=== PATIENT | female | born 1935 | race Caucasian/White ===

== ENCOUNTER 2017-04-01 15:26 | Inpatient (IN) ==
[2017-04-01 16:20] LABS: Basophils % 0.3 %; Eosinophils # 0.1 K/mcL (0.0-0.6); Eosinophils % 0.5 %; Hematocrit 41.2 % (35.3-44.9); Hemoglobin 13.3 g/dL (11.5-15.4); Immature Granulocytes % 0.6 % (0-4); Lymphocytes # 2.7 K/mcL (0.6-4.6); Lymphocytes % 21.1 %; Mean Corpuscular HGB Conc 32.3 g/dL (31.6-35.5); Mean Corpuscular Hemoglobin 26.5 pg (28.0-33.3); Mean Corpuscular Volume 82.2 fL (83.0-100.0); Monocytes # 1.1 K/mcL (0.0-1.3); Monocytes % 8.5 %; Neutrophils # 8.7 K/mcL (1.6-8.9); Platelet Count 267 K/mcL (140-400); Red Blood Count 5.01 M/mcL (3.82-4.97); Red Cell Distribution Width 13.3 % (11.5-14.5)
[2017-04-01 16:30] LABS: BUN/Creatinine Ratio 16 (6-26); Blood Urea Nitrogen 12 mg/dL (7-20); Calcium 9.6 mg/dL (8.6-10.8); Carbon Dioxide 30 mEq/L (19-29); Chloride 103 mEq/L (98-109); Glucose 107 mg/dL (70-99); Osmolality,Calculated 292 (280-300); Potassium 3.6 mEq/L (3.5-4.5); Sodium 141 mEq/L (136-145); eGFR For African Americans > 60 (> 60); eGFR For Non-African Americans > 60 (> 60)
--- NOTE | 2017-04-01 16:44 | Emergency Department Note ---
Disposition Clinical Impression: Transient cerebral ischemia Qualifiers: Transient cerebral ischemia type: unspecified Qualified Code(s): G45.9 - Transient cerebral ischemic attack, unspecified Disposition: Admitted As Inpatient Condition: Good General Adult HPI - General Chief complaint: ED Neuro Symptoms/Deficit Stated complaint: neuro, dizzy, HTN Time Seen by Provider: 04/01/17 15:51 Source: patient Mode of arrival: ambulatory Limitations: no limitations Nursing Notes Reviewed: Yes Vital Signs Reviewed: Yes - History of Present Illness HPI Narrative: 82-year-old female brought in by family with concerns of possible CVA versus increasing weakness. Family states the patient is generally very active and works 40 hours a week without difficulty. Over the past 3 days they have noticed that she has been increasingly weak and fatigued with slurred speech and intermittent word finding difficulties. They state that she fell 2 days ago secondary to a lower extremity weakness but the details on this are unclear. They state there are evaluated by an outside facility 2 days ago which returned with a normal workup other than a mildly elevated carboxyhemoglobin level. The family states that multiple officials have been to the house and have not found an elevated level of carbon monoxide in the emergency department. Today the family noted that she had increased difficulty with word finding and described paresthesias of the left side of her face and the left upper extremity. Patient was also found to have a significantly elevated blood pressure with systolic greater than 200. Patient states she has been under a large amount of stress recently secondary to family problems. She does report a history of elevated blood pressures in the past. Primary care provider recently prescribed Toprol to add to her lisinopril however she has not started this medication yet. Pain Scale: 0 - Related Data Home Medications Medication Instructions Recorded Confirmed Cinacalcet [Sensipar] 30 mg PO BID 02/17/16 04/01/17 Cholecalciferol (D-3) [Vitamin D] 4,000 unit PO DAILY 03/30/17 04/01/17 Cyclobenzaprine [Flexeril] 5 mg PO HS 03/30/17 04/01/17 FLUoxetine HCl [PROzac] 10 mg PO DAILY 03/30/17 04/01/17 LORazepam [Ativan] 0.5 - 1 mg PO TID PRN 03/30/17 04/01/17 Lisinopril 30 mg PO DAILY 03/30/17 04/01/17 Atorvastatin [Lipitor] 10 mg PO AD 04/01/17 04/01/17 Diclofenac Sodium [Voltaren] 1 appl TP QID PRN 04/01/17 04/01/17 Fluticasone Propionate Nasal 50 mcg NS BID 04/01/17 04/01/17 [Flonase] Glimepiride [Amaryl] 0.5 mg PO QAM 04/01/17 04/01/17 Meclizine HCl [Verticalm] 25 mg PO BID PRN 04/01/17 04/01/17 Metoprolol [Lopressor] 25 mg PO BID 04/01/17 04/01/17 Ondansetron [Zofran] 8 mg PO Q8H PRN 04/01/17 04/01/17 Potassium Chloride [Klor-Con 10] 10 meq PO TID 04/01/17 04/01/17 hydroCHLOROthiazide 12.5 mg PO DAILY PRN 04/01/17 04/01/17 [Hydrochlorothiazide] Allergies Allergy/AdvReac Type Severity Reaction Status Date / Time aspirin Allergy Hives Verified 03/30/17 09:07 cephalexin [From Keflex] Allergy Hives Verified 03/30/17 09:07 ibuprofen [From Motrin] Allergy Hives Verified 03/30/17 09:07 propoxyphene Allergy Swelling Verified 03/30/17 09:07 [From Darvocet-N] of Lip/Tongue/Throat All systems ED: reviewed and negative except as stated. Constitutional: Reports: weakness. Denies: fever, chills ENT ED: Denies: ear pain, throat pain Cardiovascular: Denies: chest pain, palpitations, dyspnea on exertion Respiratory: Denies: cough, dyspnea, wheezes Gastrointestinal: Denies: abdominal pain, nausea, vomiting Genitourinary: Denies: urgency, dysuria, frequency Musculoskeletal: Denies: back pain, neck pain Integumentary: Denies: rash, abrasion Past Medical History - Past Medical History Medical history: Reports: diabetes, hypertension Surgical history: Reports: non-contributory Psychiatric history: Reports: anxiety, bipolar ORTHODONTIC TECHNICIAN ASSISTANT history: Reports: no ORTHODONTIC TECHNICIAN ASSISTANT history - Social History Smoking Status: Never smoker Smokeless Tobacco Status: No Alcohol use: Reports: none Drug use: Reports: none Physical Exam General: Alert and in no acute distress Skin: Warm, dry, intact Head: Normocephalic and atraumatic Neck: Supple, trachea midline and no tenderness Cardiovascular: RRR, no murmur, normal perfusion Respiratory: CTAB, no wheezing, cough, or respiratory distress Musculoskeletal: Normal strength, no tenderness, swelling or deformity GI: Soft, nontender, nondistended. Bowel sounds present Neuro: A&O to person, place, time and situation. No focal deficits noted on exam. Finger to nose testing and [id number] testing intact bilaterally. Cranial nerve exam intact to examination. No sensory deficits on exam. Psychiatric: cooperative and appropriate mood and affect. - General Limitations: no limitations General appearance: in no apparent distress Course Vital Signs Temperature 97.9 F 04/01/17 15:30 Pulse Rate 107 04/01/17 15:30 Respiratory Rate 18 04/01/17 15:30 Blood Pressure 160/84 04/01/17 15:30 O2 Sat by Pulse Oximetry 97 04/01/17 15:30 Temperature 97.7 F 04/01/17 23:26 Pulse Rate 99 04/01/17 23:26 Respiratory Rate 20 04/01/17 23:26 Blood Pressure 165/101 04/01/17 23:26 O2 Sat by Pulse Oximetry 93 04/01/17 23:26 Oxygen Delivery Oxygen Delivery Nasal Cannula Medical Decision Making - Medical Records Medical records reviewed: Yes I reviewed the patient's medical records. - Lab Data Lab results reviewed: Yes I reviewed the patient's lab results. Result diagrams: 04/02/17 00:46 04/01/17 16:10 Lab Results 04/01/17 04/01/17 04/01/17 Range/Units 16:10 16:10 16:10 WBC 12.6 H (4.3-11.1) K/mcL RBC 5.01 H (3.82-4.97) M/mcL Hgb 13.3 (11.5-15.4) g/dL Hct 41.2 (35.3-44.9) % MCV 82.2 L (83.0-100.0) fL MCH 26.5 L (28.0-33.3) pg MCHC 32.3 (31.6-35.5) g/dL RDW 13.3 (11.5-14.5) % Plt Count 267 (140-400) K/mcL MPV 10.0 (9.4-12.4) fL Immature Gran % 0.6 (0-4) % Seg Neutrophils % 69.0 % Lymphocytes % 21.1 % Monocytes % 8.5 % Eosinophils % 0.5 % Basophils % 0.3 % Neutrophils # 8.7 (1.6-8.9) K/mcL Lymphocytes # 2.7 (0.6-4.6) K/mcL Monocytes # 1.1 (0.0-1.3) K/mcL Eosinophils # 0.1 (0.0-0.6) K/mcL Basophils # 0.0 (0.0-0.2) K/mcL Carboxyhemoglobin (0-5) % Sodium 141 (136-145) mEq/L Potassium 3.6 (3.5-4.5) mEq/L Chloride 103 (98-109) mEq/L Carbon Dioxide 30 H (19-29) mEq/L BUN 12 (7-20) mg/dL Creatinine 0.77 (0.57-1.11) mg/dL Est GFR ( Amer) > 60 (> 60) Est GFR (Non-Af Amer) > 60 (> 60) BUN/Creatinine Ratio 16 (6-26) Glucose 107 H (70-99) mg/dL Calculated Osmolality 292 (280-300) Calcium 9.6 (8.6-10.8) mg/dL Troponin I 0.00 (0-0.03) ng/mL Urine Color (Yellow) Urine Clarity (Clear) Urine pH (5.0-8.0) pH Units Ur Specific [place] (1.010-1.025) Urine Protein (Neg-Trace) mg/dL Urine Glucose (UA) (Normal) mg/dL Urine Ketones (Negative) mg/dL Urine Blood (Negative) Urine Nitrite (Negative) Urine Bilirubin (Negative) Urine Urobilinogen (Normal) mg/dL Ur Leukocyte Esterase (Negative) Ur Culture Indicated? (NO) 04/01/17 04/01/17 Range/Units 16:10 16:45 WBC (4.3-11.1) K/mcL RBC (3.82-4.97) M/mcL Hgb (11.5-15.4) g/dL Hct (35.3-44.9) % MCV (83.0-100.0) fL MCH (28.0-33.3) pg MCHC (31.6-35.5) g/dL RDW (11.5-14.5) % Plt Count (140-400) K/mcL MPV (9.4-12.4) fL Immature Gran % (0-4) % Seg Neutrophils % % Lymphocytes % % Monocytes % % Eosinophils % % Basophils % % Neutrophils # (1.6-8.9) K/mcL Lymphocytes # (0.6-4.6) K/mcL Monocytes # (0.0-1.3) K/mcL Eosinophils # (0.0-0.6) K/mcL Basophils # (0.0-0.2) K/mcL Carboxyhemoglobin 1.7 (0-5) % Sodium (136-145) mEq/L Potassium (3.5-4.5) mEq/L Chloride (98-109) mEq/L Carbon Dioxide (19-29) mEq/L BUN (7-20) mg/dL Creatinine (0.57-1.11) mg/dL Est GFR ( Amer) (> 60) Est GFR (Non-Af Amer) (> 60) BUN/Creatinine Ratio (6-26) Glucose (70-99) mg/dL Calculated Osmolality (280-300) Calcium (8.6-10.8) mg/dL Troponin I (0-0.03) ng/mL Urine Color Yellow (Yellow) Urine Clarity Clear (Clear) Urine pH 7.0 (5.0-8.0) pH Units Ur Specific [place] 1.011 (1.010-1.025) Urine Protein Negative (Neg-Trace) mg/dL Urine Glucose (UA) Normal (Normal) mg/dL Urine Ketones Negative (Negative) mg/dL Urine Blood Negative (Negative) Urine Nitrite Negative (Negative) Urine Bilirubin Negative (Negative) Urine Urobilinogen Normal (Normal) mg/dL Ur Leukocyte Esterase Negative (Negative) Ur Culture Indicated? NO (NO) - Radiology Data Radiology results reviewed: Yes I reviewed the patient's radiology results.
[2017-04-01 16:57] LABS: Bilirubin,Urine Negative (Negative); Blood,Urine Negative (Negative); Clarity,Urine Clear (Clear); Color,Urine Yellow (Yellow); Glucose,Urine (UA) Normal (Normal); Ketones,Urine Negative (Negative); Leukocyte Esterase,Urine Negative (Negative); Nitrite,Urine Negative (Negative); Protein,Urine Negative (Neg-Trace); Specific Gravity,Urine 1.011 (1.010-1.025); Urobilinogen,Urine Normal (Normal)
[2017-04-01] MEDS ORDERED: Naloxone 0.4 MG/ML INJ IVP PRN (19:25)
[2017-04-01] MEDS ORDERED: Acetaminophen 325 MG TABLET PO PRN (19:25)
[2017-04-01] MEDS ORDERED: Ondansetron 4 MG/2 ML VIAL IVP PRN (19:25)
[2017-04-01] MEDS ORDERED: hydroCHLOROthiazide 25 MG TABLET PO PRN (19:29)
[2017-04-01 19:59] LABS: INR 1.1; Prothrombin Time 12.2 Seconds (9.4-12.1)
[2017-04-01] MEDS ORDERED: *HR* Dextrose 50 % in Water (Syg) 50 ML SYRINGE IVP PRN (23:28)
[2017-04-01] MEDS ORDERED: Dextrose Gel 15 GM PO PRN ×2 (23:28)
[2017-04-01] MEDS ORDERED: D5% in Water 1,000 ML IVC PRN (23:28)
--- NOTE | 2017-04-01 23:34 | Internal Med History&Physical ---
Date of Encounter: 04/01/17 Time of Encounter: 23:00 Assessment and Plan (1) Generalized weakness Current visit: Yes Status: Acute Generalized weakness and dizziness - initial concern for TIA or CVA - patient has no deficits at present Symptoms are probably due to possible community for pneumonia and hypomagnesemia Possible community-acquired pneumonia - present on admission IV Levaquin, DuoNeb breathing treatment Chest x-ray - right lower lobe opacity, possible pneumonia Cultures - pending Continue statin, patient is allergic to aspirin Magnesium being replaced CT brain - no acute intracranial process MRI brain - no acute intracranial process, moderate chronic small vessel ischemic disease and 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 (2) Type 2 diabetes mellitus Current visit: Yes Status: Chronic Type 2 diabetes mellitus, [id number], hyperglycemia Continue sliding scale, glucose checks Qualifiers: Diabetes mellitus complication status: without complication Diabetes mellitus chcf insulin use: without chcf use Qualified Code(s): E11.9 - Type 2 diabetes mellitus without complications (3) Essential hypertension Current visit: Yes Status: Chronic Essential hypertension, controlled, continue home meds, monitor (4) Vertigo Current visit: Yes Status: Chronic Continue meclizine (5) DVT prophylaxis Current visit: Yes Status: Acute Continue heparin subcutaneous Internal Medicine - H&P: HPI Chief complaint: Generalized weakness and fatigue Admitted From: Emergency Dept History of present illness: Ms. Doherty is a 82 year old female with past medical history of hypertension, diabetes and vertigo. Patient presents to the ED with complaints of generalized weakness and fatigue. On examination patient is awake and alert. Not in any distress. Able to provide history. No family members at bedside. Patient presents with weakness and fatigue. There was also initial concern for dysarthria and paresthesia on the left side of her face and left upper extremity. Patient was also found to have elevated blood pressure today. Apparently she has been under a lot of stress due to family problems. She was recently started on metoprolol as well. Patient was evaluated at an outside facility about 2 days ago after she had a fall due to lower extremity weakness. Patient was found to have mildly elevated carboxyhemoglobin level. Apparently patient's house has been inspected and there is no elevated carbon monoxide. Currently patient denies any chest pain or shortness of breath. She denies abdominal pain but does have some nausea but no vomiting. No fever or diarrhea. There is also initial concern for left-sided weakness. On examination patient has normal strength in all 4 extremities. There is no obvious deficit. Patient has normal speech and no facial droop. Initial evaluation of the ED is negative except for slightly elevated white count and chest x-ray reveals possible right lower lobe pneumonia. CT of the head and MRI of the brain revealed no acute intracranial abnormality. Patient is being admitted for generalized weakness and fatigue and possible pneumonia. We will continue all her medications. She will be on IV antibiotics. Patient states she is allergic to aspirin. Patient has been explained about her condition and plan of care. Understood and agreed. No unanswered questions. CODE STATUS full code. Past Med Surg Social Fam HX - Past Medical History Medical history: diabetes, hypertension Psychiatric history: anxiety, bipolar - Past Surgical History Surgical History: non-contributory - Social History Smoking Status: Never smoker Smokeless Tobacco Status: No Alcohol use: none Drug use: none Internal Medicine - H&P: Meds Cinacalcet [Sensipar] 30 mg PO BID 02/17/16 [History] Cholecalciferol (D-3) [Vitamin D] 4,000 unit PO DAILY 03/30/17 [History] Cyclobenzaprine [Flexeril] 5 mg PO HS 03/30/17 [History] FLUoxetine HCl [PROzac] 10 mg PO DAILY 03/30/17 [History] LORazepam [Ativan] 0.5 - 1 mg PO TID PRN 03/30/17 [History] Lisinopril 30 mg PO DAILY 03/30/17 [History] Atorvastatin [Lipitor] 10 mg PO AD 04/01/17 [History] Diclofenac Sodium [Voltaren] 1 appl TP QID PRN 04/01/17 [History] Fluticasone Propionate Nasal [Flonase] 50 mcg NS BID 04/01/17 [History] Glimepiride [Amaryl] 0.5 mg PO QAM 04/01/17 [History] Meclizine HCl [Verticalm] 25 mg PO BID PRN 04/01/17 [History] Metoprolol [Lopressor] 25 mg PO BID 04/01/17 [History] Ondansetron [Zofran] 8 mg PO Q8H PRN 04/01/17 [History] Potassium Chloride [Klor-Con 10] 10 meq PO TID 04/01/17 [History] hydroCHLOROthiazide [Hydrochlorothiazide] 12.5 mg PO DAILY PRN 04/01/17 [History ] Allergies aspirin Allergy (Verified 03/30/17 09:07) Hives cephalexin [From Keflex] Allergy (Verified 03/30/17 09:07) Hives ibuprofen [From Motrin] Allergy (Verified 03/30/17 09:07) Hives propoxyphene [From Darvocet-N] Allergy (Verified 03/30/17 09:07) Swelling of Lip/Tongue/Throat All Systems PM: A 10-system review of systems was performed and is negative for pertinent findings except as documented above in the HPI. - Constitutional Constitutional: fatigue, weakness, no fever(s) - EENT Eyes: no blurry vision - Cardiovascular Cardiovascular ROS IM: no chest pain, no diaphoresis, no dyspnea, no dyspnea on exertion, no orthopnea, no syncope - Respiratory Respiratory: no cough, no dyspnea, no hemoptysis, no dyspnea on exertion, no wheezing, no chest congestion - Gastrointestinal Gastrointestinal: no abdominal pain, no belching, no cramping, no hematochezia, no nausea, no vomiting - Genitourinary Genitourinary: no dysuria - Neurological Neurological ROS: dizziness, no abnormal gait, no abnormal speech, no focal weakness, no numbness, no tingling - Constitutional Vitals: Temp Pulse Resp BP Pulse Ox 97.7 F 99 20 165/101 93 04/01/17 23:26 04/01/17 23:26 04/01/17 23:26 04/01/17 23:26 04/01/17 23:26 General appearance: Present: A&O X 3, pleasant, no acute distress, answers questions appropriately - Head Head exam: Present: atraumatic - Eye Eye exam: Present: EOMI - Neck Neck exam general surgery: Present: supple - Respiratory Respiratory exam: Present: CTAB. Absent: rales, rhonchi, stridor, tachypnea - Cardiovascular Cardiovascular exam: Present: RRR, +S1, +S2, systolic murmur - GI/Abdominal GI/Abdominal exam: Present: soft, no peritoneal signs. Absent: distended, firm , guarding, rigid, tenderness - Extremities Exam Extremities exam: Present: radial pulses palpable and symetrical. Absent: cyanotic, pedal edema, tenderness - Neurological Exam Neurological exam: Present: alert, oriented X3, no focal deficits. Absent: facial droop, speech deficit Internal Med - H&P Results - Labs CBC & Chem 7: 04/01/17 16:10 04/01/17 16:10 Labs: Cardiac Enzymes 04/01/17 Range/Units 19:46 Troponin I 0.00 (0-0.03) ng/mL - Impressions ITS Impressions Chest X-Ray 04/01/17 19:28 IMPRESSION: Right lower lung opacity is unchanged. Correlate for partial atelectasis or pneumonia. Cardiomegaly. D/ / 04/01/2017 22:35:15 Jluis Moody MD / bcagerald Interpreting Provider: Jluis Moody MD Brain MRI 04/01/17 19:29 IMPRESSION: No acute intracranial process. Involutional changes. 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 D/ / Hector Ashby MD / eHctor Ashby MD Interpreting Provider: Hector Ashby MD
[2017-04-01] MEDS ORDERED: Magnesium Sulfate 2 GM in D5% in Water 100 ML IVPB ONE (23:43)
[2017-04-01] MEDS ORDERED: Levofloxacin 500 MG/100 ML 500 MG/100 ML BAG IVPB SCH (23:45)
[2017-04-01] MEDS: Fluticasone Propionate Nasal 50 MCG/SPRAY BOTTLE NS SCH (23:46)
[2017-04-02 00:55] LABS: Basophils # 0.1 K/mcL (0.0-0.2); Basophils % 0.6 %; Eosinophils # 0.1 K/mcL (0.0-0.6); Eosinophils % 0.5 %; Hematocrit 41.4 % (35.3-44.9); Hemoglobin 13.3 g/dL (11.5-15.4); Immature Granulocytes % 0.5 % (0-4); Lymphocytes # 2.7 K/mcL (0.6-4.6); Mean Corpuscular HGB Conc 32.1 g/dL (31.6-35.5); Mean Corpuscular Hemoglobin 26.6 pg (28.0-33.3); Mean Corpuscular Volume 82.8 fL (83.0-100.0); Mean Platelet Volume 10.2 fL (9.4-12.4); Monocytes # 1.1 K/mcL (0.0-1.3); Platelet Count 280 K/mcL (140-400); Red Cell Distribution Width 13.2 % (11.5-14.5); Segmented Neutrophils % 71.4 %
[2017-04-02 01:12] LABS: Alanine Aminotransferase 12 Units/L (0-55); Albumin 3.4 g/dL (3.5-5.0); Albumin/Globulin Ratio 0.9 (1.1-2.2); Alkaline Phosphatase 121 Units/L (38-126); Aspartate Amino Transferase 19 Units/L (5-34); BUN/Creatinine Ratio 12 (6-26); Blood Urea Nitrogen 10 mg/dL (7-20); Calcium 9.6 mg/dL (8.6-10.8); Carbon Dioxide 29 mEq/L (19-29); Chloride 103 mEq/L (98-109); Globulin 3.7 g/dL (2.4-3.5); Glucose 181 mg/dL (70-99); Osmolality,Calculated 294 (280-300); Potassium 3.6 mEq/L (3.5-4.5); Sodium 140 mEq/L (136-145); Total Protein 7.1 g/dL (6.0-8.3); eGFR For African Americans > 60 (> 60); eGFR For Non-African Americans > 60 (> 60)
[2017-04-02] MEDS: Ipratropium/Albuterol Neb 3 ML IH SCH ×4 (04:51→22:15)
[2017-04-02] MEDS: *HR* Heparin 5,000 UNIT/ML VIAL SQ SCH ×2 (05:41→17:22)
[2017-04-02] MEDS: Famotidine 20 MG/2 ML VIAL IVP SCH (05:41)
[2017-04-02] MEDS: Insulin LISPRO 300 UNITS/3 ML VIAL SQ SCH ×3 (07:36→16:44)
[2017-04-02] MEDS: FLUoxetine HCl 10 MG CAPSULE PO SCH (10:55)
[2017-04-02] MEDS: Cholecalciferol (D-3) 1,000 UNIT TABLET PO SCH (10:55)
[2017-04-02] MEDS: Fluticasone Propionate Nasal 50 MCG/SPRAY BOTTLE NS SCH ×2 (10:57→20:17)
[2017-04-02] MEDS ORDERED: Haloperidol Lactate 5 MG/ML VIAL IVP STA (16:31)
[2017-04-02] MEDS ORDERED: Magnesium Sulfate 1 GM in D5% in Water 100 ML IVPB ONE (16:32)
--- NOTE | 2017-04-02 17:43 | Internal Med Progress Note ---
Date of Encounter: 04/02/17 Time of Encounter: 16:00 - Assessment and plan (1) Generalized weakness Current Visit: Yes Status: Acute Assessment and plan: Patient presents with weakness and fatigue. There was also initial concern for dysarthria and paresthesia on the left side of her face and left upper extremity. Patient was also found to have elevated blood pressure today. Apparently she has been under a lot of stress due to family problems. She was recently started on metoprolol as well. Patient was evaluated at an outside facility about 2 days ago after she had a fall due to lower extremity weakness. Patient was found to have mildly elevated carboxyhemoglobin level. Apparently patient's house has been inspected and there is no elevated carbon monoxide. Could be secondary to pneumonia. Continue antibiotics. (2) Acute metabolic encephalopathy Current Visit: Yes Status: Acute Assessment and plan: multifactorial from infection, hospitalization, old age. CT head showed no acute changes, chronic mild small vessel ischemic changes. 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 Haldol when necessary. Start low-dose Seroquel at bedtime. Check TSH, B12, folate. (3) Pneumonia Current Visit: Yes Status: Acute Assessment and plan: Community bacterial pneumonia. Chest x-ray showed right lower lobe consolidation, suspected pneumonia. Patient will benefit from CT chest when her mental status improves. Continue IV Levaquin. Not requiring oxygen. Qualifiers: Pneumonia type: due to unspecified organism Laterality: right Lung location: lower lobe of lung Qualified Code(s): J18.1 - Lobar pneumonia, unspecified organism (4) Essential hypertension Current Visit: Yes Status: Chronic Assessment and plan: On arrival, BP was 215/111. continue lisinopril. hold HCTZ. close monitor. hydralazine prn. (5) Type 2 diabetes mellitus Current Visit: Yes Status: Chronic Assessment and plan: iss. diabetic diet Qualifiers: Diabetes mellitus complication status: without complication Diabetes mellitus long term care social worker insulin use: without [facility] use Qualified Code(s): E11.9 - Type 2 diabetes mellitus without complications - Subjective Interval history: Patient is very confused. She knows her name and that she is in the hospital but she does not remember anything else. - Constitutional Vitals: Temp Pulse Resp BP Pulse Ox 97.9 F 67 14 181/82 94 04/02/17 15:15 04/02/17 15:15 04/02/17 15:15 04/02/17 15:15 04/02/17 15:15 General appearance: Present: cooperative, A&O X 3, pleasant, no acute distress, answers questions appropriately - Neck Neck exam general surgery: Present: supple, trachea midline. Absent: lymphadenopathy - Respiratory Respiratory exam: Present: CTAB - Cardiovascular Cardiovascular exam: Present: RRR, systolic murmur - GI/Abdominal GI/Abdominal exam: Present: normal bowel sounds, soft. Absent: distended, tenderness - Extremities Exam Extremities exam: Absent: pedal edema - Back Exam Back exam: Absent: CVA tenderness (L), CVA tenderness (R) - Neurological Exam Neurological exam: Present: alert, oriented X3, no focal deficits, strengths equal and symetr throughout. Absent: facial droop, speech deficit - Skin Skin exam: Absent: rash Internal Medicine: Result - Labs CBC & Chem 7: 04/02/17 00:46 04/02/17 00:46 Labs: Short CBC 04/02/17 Range/Units 00:46 WBC 14.0 H (4.3-11.1) K/mcL Hgb 13.3 (11.5-15.4) g/dL Hct 41.4 (35.3-44.9) % Plt Count 280 (140-400) K/mcL Neutrophils # 10.0 H (1.6-8.9) K/mcL BMP 04/02/17 00:46 Sodium 140 Potassium 3.6 Chloride 103 Carbon Dioxide 29 BUN 10 Creatinine 0.85 Glucose 181 H Calcium 9.6 Cardiac Enzymes 04/01/17 04/02/17 04/02/17 Range/Units 19:46 00:46 07:50 Troponin I 0.00 0.00 0.00 (0-0.03) ng/mL Liver Function 04/02/17 Range/Units 00:46 Total Bilirubin 1.0 (0.2-1.2) mg/dL AST 19 (5-34) Units/L ALT 12 (0-55) Units/L Alkaline Phosphatase 121 (38-126) Units/L Albumin 3.4 L (3.5-5.0) g/dL - ABG Interpretation ABG results: PT/INR, D-dimer PT 12.2 Seconds (9.4-12.1) H 04/01/17 19:46 - Impressions Impressions Chest X-Ray 04/01/17 19:28 IMPRESSION: Right lower lung opacity is unchanged. Correlate for partial atelectasis or pneumonia. Cardiomegaly. D/ / 04/01/2017 22:35:15 Jluis Moody MD / ervin Interpreting Provider: Jluis Moody MD Brain MRI 04/01/17 19:29 IMPRESSION: No acute intracranial process. Involutional changes. 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 D/ / Hector Ashby MD / Hector Ashby MD Interpreting Provider: Hector Ashby MD Consult Discharge Plan - Plan Referrals: Canelo Sorto DO [Primary Care Provider] -
[2017-04-02] MEDS ORDERED: Haloperidol Lactate 5 MG/ML VIAL IVP ONE (20:11)
[2017-04-02] MEDS: Magnesium Oxide 400 MG TABLET PO SCH (20:17)
[2017-04-02] MEDS ORDERED: Levofloxacin 250 MG/50 ML 250 MG/50 ML BAG IVPB SCH (23:00)
[2017-04-03] MEDS: Ipratropium/Albuterol Neb 3 ML IH SCH ×3 (04:11→16:26)
[2017-04-03 05:14] LABS: Basophils # 0.1 K/mcL (0.0-0.2); Basophils % 0.8 %; Eosinophils # 0.1 K/mcL (0.0-0.6); Eosinophils % 0.7 %; Hematocrit 42.2 % (35.3-44.9); Hemoglobin 13.4 g/dL (11.5-15.4); Immature Granulocytes % 0.6 % (0-4); Lymphocytes # 2.1 K/mcL (0.6-4.6); Lymphocytes % 23.8 %; Mean Corpuscular HGB Conc 31.8 g/dL (31.6-35.5); Mean Corpuscular Hemoglobin 26.2 pg (28.0-33.3); Mean Corpuscular Volume 82.6 fL (83.0-100.0); Mean Platelet Volume 10.5 fL (9.4-12.4); Monocytes # 0.7 K/mcL (0.0-1.3); Neutrophils # 5.9 K/mcL (1.6-8.9); Platelet Count 279 K/mcL (140-400); Red Blood Count 5.11 M/mcL (3.82-4.97); Red Cell Distribution Width 13.2 % (11.5-14.5); Segmented Neutrophils % 66.1 %
[2017-04-03 05:26] LABS: Alanine Aminotransferase 13 Units/L (0-55); Albumin 3.2 g/dL (3.5-5.0); Albumin/Globulin Ratio 0.9 (1.1-2.2); Alkaline Phosphatase 112 Units/L (38-126); Aspartate Amino Transferase 18 Units/L (5-34); BUN/Creatinine Ratio 16 (6-26); Bilirubin,Direct 0.3 mg/dL (0.0-0.5); Bilirubin,Indirect 0.5 mg/dL (0.0-1.2); Bilirubin,Total 0.8 mg/dL (0.2-1.2); Blood Urea Nitrogen 13 mg/dL (7-20); Calcium 9.3 mg/dL (8.6-10.8); Carbon Dioxide 31 mEq/L (19-29); Chloride 103 mEq/L (98-109); Globulin 3.4 g/dL (2.4-3.5); Glucose 113 mg/dL (70-99); Magnesium 1.5 mg/dL (1.6-2.6); Osmolality,Calculated 293 (280-300); Potassium 3.4 mEq/L (3.5-4.5); Sodium 141 mEq/L (136-145); Total Protein 6.6 g/dL (6.0-8.3); eGFR For African Americans > 60 (> 60); eGFR For Non-African Americans > 60 (> 60)
[2017-04-03 05:48] LABS: Thyroid Stimulating Hormone 1.017 mcIU/mL (0.350-4.840)
[2017-04-03 06:01] LABS: Folate 14.5 ng/mL (7.0-31.4)
[2017-04-03] MEDS: *HR* Heparin 5,000 UNIT/ML VIAL SQ SCH (06:10)
[2017-04-03] MEDS: Famotidine 20 MG/2 ML VIAL IVP SCH (06:10)
[2017-04-03] MEDS: FLUoxetine HCl 10 MG CAPSULE PO SCH (08:50)
[2017-04-03] MEDS: Magnesium Oxide 400 MG TABLET PO SCH (08:50)
[2017-04-03] MEDS: Cholecalciferol (D-3) 1,000 UNIT TABLET PO SCH (08:51)
[2017-04-03] MEDS ORDERED: Magnesium Sulfate 1 GM in D5% in Water 100 ML IVPB ONE (10:51)
[2017-04-03 10:57] VITALS: BP 144/81
[2017-04-03] MEDS: Insulin LISPRO 300 UNITS/3 ML VIAL SQ SCH (11:15)
[2017-04-03] MEDS: Fluticasone Propionate Nasal 50 MCG/SPRAY BOTTLE NS SCH (11:15)
--- NOTE | 2017-04-03 12:18 | Discharge Summary ---
Date of Encounter: 04/03/17 Time of Encounter: 12:16 - Discharge Diagnosis (1) Generalized weakness Priority: Primary Status: Acute (2) Acute metabolic encephalopathy Priority: Primary Status: Acute (3) Pneumonia Priority: Primary Status: Acute Qualifiers: Pneumonia type: due to unspecified organism Laterality: right Lung location: lower lobe of lung Qualified Code(s): J18.1 - Lobar pneumonia, unspecified organism (4) Essential hypertension Priority: Primary Status: Chronic (5) Type 2 diabetes mellitus Priority: Secondary Status: Chronic Qualifiers: Diabetes mellitus complication status: without complication Diabetes 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 machine greaser insulin use: without machine greaser use Qualified Code(s): E11.9 - Type 2 diabetes mellitus without complications - Discharge Medications Prescriptions: hydrALAZINE [HydrALAZINE] 25 mg PO DAILY #30 tablet levoFLOXacin [Levaquin] 500 mg PO DAILY #3 tablet Magnesium Oxide [Mag-Ox] 400 mg PO BID #60 tab Home Medications: Cinacalcet [Sensipar] 30 mg PO BID 02/17/16 [History] Cholecalciferol (D-3) [Vitamin D] 4,000 unit PO DAILY 03/30/17 [History] Cyclobenzaprine [Flexeril] 5 mg PO HS 03/30/17 [History] FLUoxetine HCl [Prozac] 10 mg PO DAILY 03/30/17 [History] Lisinopril 30 mg PO DAILY 03/30/17 [History] Atorvastatin [Lipitor] 10 mg PO AD 04/01/17 [History] Diclofenac Sodium [Voltaren] 1 appl TP QID PRN 04/01/17 [History] Fluticasone Propionate Nasal [Flonase] 50 mcg NS BID 04/01/17 [History] Meclizine HCl [Verticalm] 25 mg PO BID PRN 04/01/17 [History] Metoprolol [Lopressor] 25 mg PO BID 04/01/17 [History] Ondansetron [Zofran] 8 mg PO Q8H PRN 04/01/17 [History] Potassium Chloride [Klor-Con 10] 10 meq PO TID 04/01/17 [History] Magnesium Oxide [Mag-Ox] 400 mg PO BID #60 tab 04/03/17 [Rx] hydrALAZINE [HydrALAZINE] 25 mg PO DAILY #30 tablet 04/03/17 [Rx] levoFLOXacin [Levaquin] 500 mg PO DAILY #3 tablet 04/03/17 [Rx] Allergies/Adverse Reactions: Allergies aspirin Allergy (Verified 03/30/17 09:07) Hives cephalexin [From Keflex] Allergy (Verified 03/30/17 09:07) Hives ibuprofen [From Motrin] Allergy (Verified 03/30/17 09:07) Hives propoxyphene [From Darvocet-N] Allergy (Verified 03/30/17 09:07) Swelling of Lip/Tongue/Throat lorazepam [From Ativan] Adverse Reaction (Verified 04/02/17 21:15) Irritable Procedures/tests Complete & Pending: Procedures Performed prior 72 hours Category Date Time Status MR head/brain wo con [MR] Routine MRI 04/01/17 19:29 Completed EV carotid duplex imaging BI Routine Y 04/02/17 19:28 Completed EV echocardiogram Routine Y 04/02/17 19:28 Completed Date of admission: 04/01/17 19:25 Primary care physician: Canelo Sorto DO - Patient Status Disposition: Home, Self-Care Condition: Good Functional capacity at discharge: independent ambulation Overall status at discharge: patient is progressing back to baseline - Discharge Instructions Instructions: Hydralazine (By mouth), Levofloxacin (By mouth), Magnesium Oxide (By mouth), Transient Ischemic Attack (DC), Community-acquired Pneumonia (DC), Hypertension (DC) Follow Up With: Canelo Sorto DO [Primary Care Provider] - (follow up appointment has been web requested. ) Additional Instructions: check your blood pressure twice daily, same time in the morning and evening. write down numbers and bring record to doctor's appointment check your blood sugars before meals and at bedtime. write down numbers and bring record to doctor's appointment - Diet and Activity Activity: resume usual activities as tolerated Diet: diabetic diet, low salt diet Interval History: patient is alert and oriented x3. she is eating and ambulating well. she is eager to go home. Hospital course: Ms. Doherty is a 82 year old female with past medical history of diabetes and hypertension who presented with a chief complaint of generalized weakness and fatigue. There was also initial concern for dysarthria and paresthesia on the left side of her face and left upper extremity. Apparently she has been under a lot of stress due to family problems. CT head showed no acute changes, chronic mild small vessel ischemic changes. 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 Chest x-ray showed right lower lobe consolidation, suspected pneumonia. Patient was admitted with diagnosis of community acquired pneumonia and was started on IV Levaquin. Patient developed an episode of acute delirium and received a Haldol and oral Seroquel with resolution of her encephalopathy. Normal TSH, B12 and folate. Her magnesium and potassium levels were corrected. At discharge, patient mental status was back to baseline. She was ambulating and eating well. I talked to her family members and they agreed that patient was back to baseline. I answered all questions. PLAN: Anterior Levaquin for a total of 5 days. Repeat chest x-ray in 4-6 weeks to address resolution of findings. - Time Spent with Patient Total time spent providing and/or coordinating discharge services: - Constitutional Vitals: Temp Pulse Resp BP Pulse Ox 98.5 F 95 16 144/81 95 04/03/17 10:56 04/03/17 10:56 04/03/17 11:24 04/03/17 10:56 04/03/17 11:24 General appearance: Present: cooperative, A&O X 3, pleasant, no acute distress, answers questions appropriately - Neck Neck exam general surgery: Present: supple, trachea midline. Absent: lymphadenopathy - Respiratory Respiratory exam: Present: CTAB - Cardiovascular Cardiovascular exam: Present: RRR - GI/Abdominal GI/Abdominal exam: Present: normal bowel sounds, soft. Absent: distended, tenderness - Extremities Exam Extremities exam: Absent: pedal edema - Back Exam Back exam: Absent: CVA tenderness (L), CVA tenderness (R) - Neurological Exam Neurological exam: Present: alert, oriented X3, no focal deficits, strengths equal and symetr throughout. Absent: facial droop, speech deficit - Skin Skin exam: Absent: rash
--- NOTE | 2017-04-04 12:23 | Carotid Imaging Report ---
Carotid Duplex Patient Name:Dileep Doherty Order Number:[id number] Procedure Date:04/02/2017 Date:1935ge:82 yrs Gender:Female Lt BP:165 / 101 mmHg Rt.BP:160 / 84 mmHgHeart Rate: Location:[facility] Room #: 3B43 Rn Clinical Appeals:Supriya Turk Referring MD:Richard Simpson MD carroting machine operator:DO Kathe Gómez MD:El Vuong MD , [facility] Primary Indications:TIA Risk Factors Yes/No Hypertension Yes Hypercholesterolemia Yes Diabetes Yes Impressions: Findings: Bilateral carotid systems have nonstenotic plaque. Recommendations: After imaging the patient returned to their room. Findings Carotid Duplex: Right: The right proximal common carotid artery has a PSV of 71 cm/s and a EDV of 8 cm/s. The right mid common carotid artery has a PSV of 66 cm/s and a EDV of 15 cm/s. There is nonstenotic plaque in the right distal common carotid artery with a PSV of 55 cm/s and a EDV of 12 cm/s. There is nonstenotic plaque in the right bifurcation with a PSV of 69 cm/s and a EDV of 13 cm/s. There is nonstenotic plaque in the right proximal internal carotid artery with a PSV of 85 cm/s and a EDV of 20 cm/s. The right mid internal carotid artery has a PSV of 85 cm/s and a EDV of 15 cm/s. The right distal internal carotid artery has a PSV of 74 cm/s and a EDV of 16 cm/s. The right eca has a PSV of 82 cm/s and a EDV of 8 cm/s. The right vertebral artery has a PSV of 57 cm/s and a EDV of 15 cm/s. Left: There is nonstenotic plaque in the left proximal common carotid artery with a PSV of 80 cm/s and a EDV of 18 cm/s. There is nonstenotic plaque in the left mid common carotid artery with a PSV of 129 cm/s and a EDV of 25 cm/s. There is nonstenotic plaque in the left distal common carotid artery with a PSV of 125 cm/s and a EDV of 23 cm/s. There is nonstenotic plaque in the left bifurcation with a PSV of 113 cm/s and a EDV of 18 cm/s. There is nonstenotic plaque in the left proximal internal carotid artery with a PSV of 78 cm/s and a EDV of 25 cm/s. The left mid internal carotid artery has a PSV of 97 cm/s and a EDV of 20 cm/s. The left distal internal carotid artery has a PSV of 96 cm/s and a EDV of 23 cm/s. The left eca has a PSV of 97 cm/s and a EDV of 9 cm/s. The left vertebral artery has a PSV of 59 cm/s and a EDV of 13 cm/s. Carotid Results Right PSV EDV Assessment Proximal CCA 71 8 Normal Mid CCA 66 15 Normal Distal CCA 55 12 Non Stenotic Plaque Bifurcation 69 13 Non Stenotic Plaque Proximal ICA 85 20 Non Stenotic Plaque Mid ICA 85 15 Normal Distal ICA 74 16 Normal ECA 82 8 Normal Vertebral Artery 57 15 Antegrade Flow Left PSV EDV Assessment Proximal CCA 80 18 Non Stenotic Plaque Mid CCA 129 25 Non Stenotic Plaque Distal CCA 125 23 Non Stenotic Plaque Bifurcation 113 18 Non Stenotic Plaque Proximal ICA 78 25 Non Stenotic Plaque Mid ICA 97 20 Normal Distal ICA 96 23 Normal ECA 97 9 Normal Vertebral Artery 59 13 Antegrade Flow Ratio's Right ICA/CCA Ratio: 1.29 ICA/CCA Values: 85/66 Left ICA/CCA Ratio: 0.75 ICA/CCA Values: 97/129 Updated by El Vuong MD, FACS on 04/04/2017 12:18:11 PM El Vuong MD electronically signed on 04/04/2017 12:18:26 PM with status of Final
--- NOTE | 2017-04-04 12:52 | Electrocardiograph Report ---
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
--- NOTE | 2017-04-04 13:17 | Electrocardiograph Report ---
[place] [id number] Test Date: 2017-04-02 Pat Name: Dileep Doherty Department: 113 Room: 3B43 Gender: F File Clerk: [id number] : 1935 Requested By: Richard Simpson Order Number: [id number] Reading MD: Babar Claire MD Measurements Intervals [place] Rate: 80 P: 47 MD: 180 QRS: 15 QRSD: 78 T: 66 QT: 408 QTc: 444 Interpretive Statements SINUS RHYTHM WITH FREQUENT SUPRAVENTRICULAR PREMATURE COMPLEXES Electronically Signed On 04-04-2017 13:15:27 EDT by Babar Claire MD
== END 2017-04-03 14:43 | disposition home or self-care (01) | DRG 193 ==
LOC: 3BNU 15:26 → EMEROO 15:26 → 3BNU 18:32 → SUATTDRO 19:25
PROVIDERS: ADMIT Family Medicine; ATTEND Internal Medicine

== ENCOUNTER 2018-05-17 18:14 | Inpatient (IN) ==
[2018-05-17] MEDS ORDERED: 0.9 % Sodium Chloride 1,000 ML IVC ONE (18:49)
--- NOTE | 2018-05-17 18:51 | Emergency Department Note ---
Disposition Clinical Impression: Hypertensive urgency, Weakness Nausea and vomiting Qualifiers: Vomiting type: unspecified Vomiting Intractability: non-intractable Qualified Code(s): R11.2 - Nausea with vomiting, unspecified Disposition: Admitted As Inpatient Time of Disposition: 00:23 General Adult HPI - General Chief complaint: ED Nausea/Vomiting/Diarrhea Stated complaint: Weakness Time Seen by Provider: 05/17/18 18:31 Source: patient, EMS Mode of arrival: EMS Limitations: no limitations Nursing Notes Reviewed: Yes Vital Signs Reviewed: Yes - History of Present Illness HPI Narrative: Patient is an 83-year-old female with a past medical history of vertigo and poorly controlled hypertension presenting to the emergency department for evaluation of generalized weakness associated with nausea. According to the patient and patient's family earlier today at approximately 8 AM patient states that she began feeling nauseous. According to family and neighbor states that they saw the patient sitting on her porch around lunchtime and she was diaphoretic and just looked 6 of a called the EMS squad and at that time the patient refused to come in to the emergency department. The family showed up to the patient's house later this evening they saw the patient she is laying in bed diaphoretic and asked to call the ambulance that she come in for evaluation. The patient herself is denying any symptoms of fevers, vomiting, chest pain, shortness of breath, back pain, abdominal pain, urinary symptoms, diarrhea or cough. According to the patient and patient's family she has not compliant with her blood pressure medications. States that she did take one today prior to coming in. The patient also has this history of chronic vertigo that is always present and states that she needs to keep her head faced towards the right otherwise her vertigo worsens. States this has been true for other doctor's appointments and is something that she deals with daily and there is no acute change with these vertigo symptoms. She also denies any focal neurological deficits. Pain Scale: 0 - Related Data Home Medications Medication Instructions Recorded Confirmed Cinacalcet [Sensipar] 30 mg PO HS 02/17/16 05/17/18 Cholecalciferol (D-3) [Vitamin D] 4,000 unit PO DAILY 03/30/17 05/17/18 Cyclobenzaprine [Flexeril] 5 mg PO HS 03/30/17 05/17/18 FLUoxetine HCl [Prozac] 10 mg PO DAILY 03/30/17 05/17/18 Lisinopril 30 mg PO DAILY 03/30/17 05/17/18 Meclizine HCl [Verticalm] 25 mg PO BID PRN 04/01/17 05/17/18 Metoprolol [Lopressor] 25 mg PO BID 04/01/17 05/17/18 Ondansetron [Zofran] 8 mg PO Q8H PRN 04/01/17 05/17/18 Potassium Chloride [Klor-Con 10] 10 meq PO TID 04/01/17 05/17/18 Glimepiride [Amaryl] 0.5 mg PO DAILY 05/17/18 05/17/18 hydrALAZINE [HydrALAZINE] 25 mg PO BID 05/17/18 05/17/18 Previous Rx's Medication Instructions Recorded Magnesium Oxide [Mag-Ox] 400 mg PO BID #60 tab 04/03/17 Allergies Allergy/AdvReac Type Severity Reaction Status Date / Time aspirin Allergy Hives Verified 05/17/18 20:41 cephalexin [From Keflex] Allergy Hives Verified 05/17/18 20:41 ibuprofen [From Motrin] Allergy Hives Verified 05/17/18 20:41 propoxyphene Allergy Swelling Verified 05/17/18 20:41 [From Darvocet-N] of Lip/Tongue/Throat lorazepam [From Ativan] AdvReac Irritable Verified 05/17/18 20:41 All systems ED: reviewed and negative except as stated. Review of Systems: As Per HPI Constitutional: Reports: weakness. Denies: fever, chills Eyes: Denies: vision change ENT ED: Denies: congestion Cardiovascular: Denies: chest pain, palpitations, dyspnea on exertion, edema, syncope Respiratory: Denies: cough, dyspnea, wheezes Gastrointestinal: Reports: nausea. Denies: abdominal pain, vomiting, diarrhea, constipation, hematemesis, melena, hematochezia Genitourinary: Denies: urgency, dysuria, frequency, hematuria Musculoskeletal: Denies: back pain, neck pain Integumentary: Denies: rash Neurological: Denies: headache, weakness, numbness, paresthesias Past Medical History - Past Medical History Attestation: Yes The following information was validated with the patient. Medical history: Reports: diabetes, hyperlipidemia, hypertension, thyroid disease, valvular heart disease Surgical history: Reports: non-contributory Psychiatric history: Reports: anxiety, bipolar REAGENT TENDER history: Reports: no REAGENT TENDER history - Social History Smoking Status: Never smoker Smokeless Tobacco Status: No Alcohol use: Reports: none Drug use: Reports: none Physical Exam CONSTITUTIONAL: Alert and oriented X3, patient is diaphoretic on exam she speaks in full sentences and is hypertensive with other vital signs and normal limits. HEAD: Normocephalic; atraumatic. EYES: PERRL, no scleral icterus. NOSE: The nose is normal in appearance without rhinorrhea RESP: Normal chest excursion with respiration; breath sounds clear and equal bilaterally; no wheezes, rhonchi, or rales CARD: Regular rhythm, without murmurs, rub or gallop ABD: Non-distended; non-tender, soft,without rigidity, rebound or guarding SKIN: Normal for age and race; diaphoretic; no apparent lesions NEUROLOGICAL: Patient is alert and oriented times three. Cranial nerves III- XII are intact. Sensory and motor functions are intact. Strength is 5/5 for flexion and extension in all 4 extremities. Patellar DTRS are equal and intact. Finger to nose testing is equal and normal bilaterally. The patient does have horizontal nystagmus to the left. - General Limitations: no limitations General appearance: alert, in no apparent distress Course Course Narrative: Plan at this time is for the patient undergo evaluation for her weakness which will be evaluation of any cardiac cause of the patient's symptoms such as ischemia or dysrhythmia, we will also evaluate for any infectious etiology, electrolyte abnormalities and TSH 4 any thyroid cause patient is currently asymptomatic at this time given that she received Zofran in the squad. She also undergo a head CT to evaluate for any neurological cause of her current symptoms such as a subdural or intracranial bleed. We will continue to monitor her hypertension. - Reevaluation(s) Reevaluation #1: Patient's blood pressure has ranged from 180 systolic to 200. Plan at this time is to give her a dose of 5 mg of Lopressor. I discussed the patient's case with the hospitalist manufacturing plant controller discussed at this time the patient's lab work was unremarkable and her head CT was negative. No EKG changes. Discussed plan is to admit her for symptomatically control as well as blood pressure control. The hospitalist recommended the 5 mg of Lopressor and states that once the have a 25% reduction in her blood pressure that we will start her on her home medications and continue to treat her nausea with Zofran and told her blood pressure is well-controlled and then reevaluate her nausea. Vital Signs Temperature 97.4 F L 05/17/18 18:18 Pulse Rate 70 05/17/18 18:18 Respiratory Rate 18 05/17/18 18:18 Blood Pressure 215/81 05/17/18 18:18 O2 Sat by Pulse Oximetry 99 05/17/18 18:18 Temperature 97.4 F L 05/17/18 18:18 Pulse Rate 66 05/17/18 22:20 Respiratory Rate 18 05/17/18 22:20 Blood Pressure 187/73 05/17/18 22:20 O2 Sat by Pulse Oximetry 91 05/17/18 22:20 Oxygen Delivery Oxygen Delivery Room Air Medical Decision Making - Medical Records Medical records reviewed: Yes I reviewed the patient's medical records. - Lab Data Lab results reviewed: Yes I reviewed the patient's lab results. Result diagrams: 05/17/18 19:07 05/17/18 19:07 Lab Results 05/17/18 05/17/18 05/17/18 Range/Units 19:07 19:07 19:07 WBC 9.9 (4.3-11.1) K/mcL RBC 5.55 H (3.82-4.97) M/mcL Hgb 14.4 (11.5-15.4) g/dL Hct 45.2 H (35.3-44.9) % MCV 81.4 L (83.0-100.0) fL MCH 25.9 L (28.0-33.3) pg MCHC 31.9 (31.6-35.5) g/dL RDW 13.8 (11.5-14.5) % Plt Count 257 (140-400) K/mcL MPV 10.1 (9.4-12.4) fL Immature Gran % 1.5 (0-4) % Seg Neutrophils % 86.9 % Lymphocytes % 9.3 % Monocytes % 1.8 % Eosinophils % 0.0 % Basophils % 0.5 % Neutrophils # 8.6 (1.6-8.9) K/mcL Lymphocytes # 0.9 (0.6-4.6) K/mcL Monocytes # 0.2 (0.0-1.3) K/mcL Eosinophils # 0.0 (0.0-0.6) K/mcL Basophils # 0.1 (0.0-0.2) K/mcL Sodium 138 (136-145) mEq/L Potassium 3.3 L (3.5-5.1) mEq/L Chloride 99 (98-107) mEq/L Carbon Dioxide 26 (23-29) mEq/L BUN 15 (8-23) mg/dL Creatinine 0.63 (0.60-1.20) mg/dL Est GFR ( Amer) > 60 (> 60) Est GFR (Non-Af Amer) > 60 (> 60) BUN/Creatinine Ratio 24 (6-26) Glucose 208 H (70-105) mg/dL Calculated Osmolality 293 (280-300) Calcium 7.9 L (8.6-10.3) mg/dL Total Bilirubin 0.7 (0.3-1.0) mg/dL AST 16 (13-39) Units/L ALT 10 (7-52) Units/L Alkaline Phosphatase 84 (34-104) Units/L Troponin I < 0.03 (< 0.04) ng/mL Serum Total Protein 6.9 (6.4-8.9) g/dL Albumin 4.1 (3.5-5.7) g/dL Globulin 2.8 (2.4-3.5) g/dL Albumin/Globulin Ratio 1.5 (1.1-2.2) TSH 0.881 (0.340-5.600) mcIU/mL Urine Color (Yellow) Urine Clarity (Clear) Urine pH (5.0-8.0) pH Units Ur Specific [place] (1.010-1.025) Urine Protein (Neg-Trace) mg/dL Urine Glucose (UA) (Normal) mg/dL Urine Ketones (Negative) mg/dL Urine Blood (Negative) Urine Nitrite (Negative) Urine Bilirubin (Negative) Urine Urobilinogen (Normal) mg/dL Ur Leukocyte Esterase (Negative) Urine Microscopic RBC (0-3) per hpf Urine Microscopic WBC (0-3) per hpf Ur Squamous Epith Cells (None-Few) per lpf Urine Bacteria (None-Few) per hpf Hyaline Casts (None-Few) per lpf Ur Culture Indicated? (NO) 05/17/18 Range/Units 20:53 WBC (4.3-11.1) K/mcL RBC (3.82-4.97) M/mcL Hgb (11.5-15.4) g/dL Hct (35.3-44.9) % MCV (83.0-100.0) fL MCH (28.0-33.3) pg MCHC (31.6-35.5) g/dL RDW (11.5-14.5) % Plt Count (140-400) K/mcL MPV (9.4-12.4) fL Immature Gran % (0-4) % Seg Neutrophils % % Lymphocytes % % Monocytes % % Eosinophils % % Basophils % % Neutrophils # (1.6-8.9) K/mcL Lymphocytes # (0.6-4.6) K/mcL Monocytes # (0.0-1.3) K/mcL Eosinophils # (0.0-0.6) K/mcL Basophils # (0.0-0.2) K/mcL Sodium (136-145) mEq/L Potassium (3.5-5.1) mEq/L Chloride (98-107) mEq/L Carbon Dioxide (23-29) mEq/L BUN (8-23) mg/dL Creatinine (0.60-1.20) mg/dL Est GFR ( Amer) (> 60) Est GFR (Non-Af Amer) (> 60) BUN/Creatinine Ratio (6-26) Glucose (70-105) mg/dL Calculated Osmolality (280-300) Calcium (8.6-10.3) mg/dL Total Bilirubin (0.3-1.0) mg/dL AST (13-39) Units/L ALT (7-52) Units/L Alkaline Phosphatase (34-104) Units/L Troponin I (< 0.04) ng/mL Serum Total Protein (6.4-8.9) g/dL Albumin (3.5-5.7) g/dL Globulin (2.4-3.5) g/dL Albumin/Globulin Ratio (1.1-2.2) TSH (0.340-5.600) mcIU/mL Urine Color Yellow (Yellow) Urine Clarity Clear (Clear) Urine pH 7.0 (5.0-8.0) pH Units Ur Specific [place] 1.016 (1.010-1.025) Urine Protein 100 H (Neg-Trace) mg/dL Urine Glucose (UA) 100 H (Normal) mg/dL Urine Ketones 40 H (Negative) mg/dL Urine Blood Negative (Negative) Urine Nitrite Negative (Negative) Urine Bilirubin Negative (Negative) Urine Urobilinogen Normal (Normal) mg/dL Ur Leukocyte Esterase Negative (Negative) Urine Microscopic RBC 0-3 (0-3) per hpf Urine Microscopic WBC 0-3 (0-3) per hpf Ur Squamous Epith Cells Many H (None-Few) per lpf Urine Bacteria None Seen (None-Few) per hpf Hyaline Casts None Seen (None-Few) per lpf Ur Culture Indicated? NO (NO) - Radiology Data Radiology results reviewed: Yes I reviewed the patient's radiology results. Chest X-Ray 05/17/18 18:49 IMPRESSION: No acute findings. D/ / Smith Houston MD / Smith Houston MD Interpreting Provider: Smith Houston MD Head CT 05/17/18 19:25 IMPRESSION: No acute intracranial abnormality. D/ / Canelo Coronel MD / Canelo Coronel MD Interpreting Provider: Canelo Coronel MD - EKG Data EKG #1 EKG attestation: Yes I reviewed and interpreted this EKG. EKG results narrative: EKG done at 18:26 shows sinus rhythm at a rate of 72 bpm. Normal axis. No signs of ischemia.
[2018-05-17 19:27] LABS: Basophils # 0.1 K/mcL (0.0-0.2); Basophils % 0.5 %; Hematocrit 45.2 % (35.3-44.9); Hemoglobin 14.4 g/dL (11.5-15.4); Immature Granulocytes % 1.5 % (0-4); Lymphocytes # 0.9 K/mcL (0.6-4.6); Lymphocytes % 9.3 %; Mean Corpuscular HGB Conc 31.9 g/dL (31.6-35.5); Mean Corpuscular Hemoglobin 25.9 pg (28.0-33.3); Mean Corpuscular Volume 81.4 fL (83.0-100.0); Mean Platelet Volume 10.1 fL (9.4-12.4); Monocytes # 0.2 K/mcL (0.0-1.3); Monocytes % 1.8 %; Neutrophils # 8.6 K/mcL (1.6-8.9); Platelet Count 257 K/mcL (140-400); Red Blood Count 5.55 M/mcL (3.82-4.97); Red Cell Distribution Width 13.8 % (11.5-14.5); Segmented Neutrophils % 86.9 %
[2018-05-17 19:44] LABS: Troponin I < 0.03 ng/mL (< 0.04)
--- NOTE | 2018-05-17 19:44 | Emergency Department Note ---
Disposition Clinical Impression: Hypertensive urgency, Weakness Nausea and vomiting Qualifiers: Vomiting type: unspecified Vomiting Intractability: non-intractable Qualified Code(s): R11.2 - Nausea with vomiting, unspecified Disposition: Admitted As Inpatient General Adult HPI - General Chief complaint: ED Nausea/Vomiting/Diarrhea Stated complaint: Weakness Time Seen by Provider: 05/17/18 18:31 Source: patient, EMS Mode of arrival: EMS Limitations: no limitations - History of Present Illness Pain Scale: 0 - Related Data Home Medications Medication Instructions Recorded Confirmed Cinacalcet [Sensipar] 30 mg PO HS 02/17/16 05/17/18 Cholecalciferol (D-3) [Vitamin D] 4,000 unit PO DAILY 03/30/17 05/17/18 Cyclobenzaprine [Flexeril] 5 mg PO HS 03/30/17 05/17/18 FLUoxetine HCl [Prozac] 10 mg PO DAILY 03/30/17 05/17/18 Lisinopril 30 mg PO DAILY 03/30/17 05/17/18 Meclizine HCl [Verticalm] 25 mg PO BID PRN 04/01/17 05/17/18 Metoprolol [Lopressor] 25 mg PO BID 04/01/17 05/17/18 Ondansetron [Zofran] 8 mg PO Q8H PRN 04/01/17 05/17/18 Potassium Chloride [Klor-Con 10] 10 meq PO TID 04/01/17 05/17/18 Glimepiride [Amaryl] 0.5 mg PO DAILY 05/17/18 05/17/18 hydrALAZINE [HydrALAZINE] 25 mg PO BID 05/17/18 05/17/18 Previous Rx's Medication Instructions Recorded Magnesium Oxide [Mag-Ox] 400 mg PO BID #60 tab 04/03/17 Allergies Allergy/AdvReac Type Severity Reaction Status Date / Time aspirin Allergy Hives Verified 05/17/18 20:41 cephalexin [From Keflex] Allergy Hives Verified 05/17/18 20:41 ibuprofen [From Motrin] Allergy Hives Verified 05/17/18 20:41 propoxyphene Allergy Swelling Verified 05/17/18 20:41 [From Darvocet-N] of Lip/Tongue/Throat lorazepam [From Ativan] AdvReac Irritable Verified 05/17/18 20:41 Constitutional: Reports: weakness. Denies: fever, chills Eyes: Denies: vision change ENT ED: Denies: congestion Cardiovascular: Denies: chest pain, palpitations, dyspnea on exertion, edema, syncope Respiratory: Denies: cough, dyspnea, wheezes Gastrointestinal: Reports: nausea. Denies: abdominal pain, vomiting, diarrhea, constipation, hematemesis, melena, hematochezia Genitourinary: Denies: urgency, dysuria, frequency, hematuria Musculoskeletal: Denies: back pain, neck pain Integumentary: Denies: rash Neurological: Denies: headache, weakness, numbness, paresthesias Past Medical History - Past Medical History Medical history: Reports: diabetes, hyperlipidemia, hypertension, thyroid disease, valvular heart disease Surgical history: Reports: non-contributory Psychiatric history: Reports: anxiety, bipolar FINE HAIRER history: Reports: no FINE HAIRER history - Social History Smoking Status: Never smoker Smokeless Tobacco Status: No Alcohol use: Reports: none Drug use: Reports: none Physical Exam - General Limitations: no limitations General appearance: alert, in no apparent distress Course Vital Signs Temperature 97.4 F L 05/17/18 18:18 Pulse Rate 70 05/17/18 18:18 Respiratory Rate 18 05/17/18 18:18 Blood Pressure 215/81 05/17/18 18:18 O2 Sat by Pulse Oximetry 99 05/17/18 18:18 Temperature 97.4 F L 05/17/18 18:18 Pulse Rate 66 05/17/18 22:20 Respiratory Rate 18 05/17/18 22:20 Blood Pressure 187/73 05/17/18 22:20 O2 Sat by Pulse Oximetry 91 05/17/18 22:20 Oxygen Delivery Oxygen Delivery Room Air Medical Decision Making - Lab Data Result diagrams: 05/17/18 19:07 05/17/18 19:07 Lab Results 05/17/18 05/17/18 05/17/18 Range/Units 19:07 19:07 19:07 WBC 9.9 (4.3-11.1) K/mcL RBC 5.55 H (3.82-4.97) M/mcL Hgb 14.4 (11.5-15.4) g/dL Hct 45.2 H (35.3-44.9) % MCV 81.4 L (83.0-100.0) fL MCH 25.9 L (28.0-33.3) pg MCHC 31.9 (31.6-35.5) g/dL RDW 13.8 (11.5-14.5) % Plt Count 257 (140-400) K/mcL MPV 10.1 (9.4-12.4) fL Immature Gran % 1.5 (0-4) % Seg Neutrophils % 86.9 % Lymphocytes % 9.3 % Monocytes % 1.8 % Eosinophils % 0.0 % Basophils % 0.5 % Neutrophils # 8.6 (1.6-8.9) K/mcL Lymphocytes # 0.9 (0.6-4.6) K/mcL Monocytes # 0.2 (0.0-1.3) K/mcL Eosinophils # 0.0 (0.0-0.6) K/mcL Basophils # 0.1 (0.0-0.2) K/mcL Sodium 138 (136-145) mEq/L Potassium 3.3 L (3.5-5.1) mEq/L Chloride 99 (98-107) mEq/L Carbon Dioxide 26 (23-29) mEq/L BUN 15 (8-23) mg/dL Creatinine 0.63 (0.60-1.20) mg/dL Est GFR ( Amer) > 60 (> 60) Est GFR (Non-Af Amer) > 60 (> 60) BUN/Creatinine Ratio 24 (6-26) Glucose 208 H (70-105) mg/dL Calculated Osmolality 293 (280-300) Calcium 7.9 L (8.6-10.3) mg/dL Total Bilirubin 0.7 (0.3-1.0) mg/dL AST 16 (13-39) Units/L ALT 10 (7-52) Units/L Alkaline Phosphatase 84 (34-104) Units/L Troponin I < 0.03 (< 0.04) ng/mL Serum Total Protein 6.9 (6.4-8.9) g/dL Albumin 4.1 (3.5-5.7) g/dL Globulin 2.8 (2.4-3.5) g/dL Albumin/Globulin Ratio 1.5 (1.1-2.2) TSH 0.881 (0.340-5.600) mcIU/mL Urine Color (Yellow) Urine Clarity (Clear) Urine pH (5.0-8.0) pH Units Ur Specific Sharon (1.010-1.025) Urine Protein (Neg-Trace) mg/dL Urine Glucose (UA) (Normal) mg/dL Urine Ketones (Negative) mg/dL Urine Blood (Negative) Urine Nitrite (Negative) Urine Bilirubin (Negative) Urine Urobilinogen (Normal) mg/dL Ur Leukocyte Esterase (Negative) Urine Microscopic RBC (0-3) per hpf Urine Microscopic WBC (0-3) per hpf Ur Squamous Epith Cells (None-Few) per lpf Urine Bacteria (None-Few) per hpf Hyaline Casts (None-Few) per lpf Ur Culture Indicated? (NO) 05/17/18 Range/Units 20:53 WBC (4.3-11.1) K/mcL RBC (3.82-4.97) M/mcL Hgb (11.5-15.4) g/dL Hct (35.3-44.9) % MCV (83.0-100.0) fL MCH (28.0-33.3) pg MCHC (31.6-35.5) g/dL RDW (11.5-14.5) % Plt Count (140-400) K/mcL MPV (9.4-12.4) fL Immature Gran % (0-4) % Seg Neutrophils % % Lymphocytes % % Monocytes % % Eosinophils % % Basophils % % Neutrophils # (1.6-8.9) K/mcL Lymphocytes # (0.6-4.6) K/mcL Monocytes # (0.0-1.3) K/mcL Eosinophils # (0.0-0.6) K/mcL Basophils # (0.0-0.2) K/mcL Sodium (136-145) mEq/L Potassium (3.5-5.1) mEq/L Chloride (98-107) mEq/L Carbon Dioxide (23-29) mEq/L BUN (8-23) mg/dL Creatinine (0.60-1.20) mg/dL Est GFR ( Amer) (> 60) Est GFR (Non-Af Amer) (> 60) BUN/Creatinine Ratio (6-26) Glucose (70-105) mg/dL Calculated Osmolality (280-300) Calcium (8.6-10.3) mg/dL Total Bilirubin (0.3-1.0) mg/dL AST (13-39) Units/L ALT (7-52) Units/L Alkaline Phosphatase (34-104) Units/L Troponin I (< 0.04) ng/mL Serum Total Protein (6.4-8.9) g/dL Albumin (3.5-5.7) g/dL Globulin (2.4-3.5) g/dL Albumin/Globulin Ratio (1.1-2.2) TSH (0.340-5.600) mcIU/mL Urine Color Yellow (Yellow) Urine Clarity Clear (Clear) Urine pH 7.0 (5.0-8.0) pH Units Ur Specific Sharon 1.016 (1.010-1.025) Urine Protein 100 H (Neg-Trace) mg/dL Urine Glucose (UA) 100 H (Normal) mg/dL Urine Ketones 40 H (Negative) mg/dL Urine Blood Negative (Negative) Urine Nitrite Negative (Negative) Urine Bilirubin Negative (Negative) Urine Urobilinogen Normal (Normal) mg/dL Ur Leukocyte Esterase Negative (Negative) Urine Microscopic RBC 0-3 (0-3) per hpf Urine Microscopic WBC 0-3 (0-3) per hpf Ur Squamous Epith Cells Many H (None-Few) per lpf Urine Bacteria None Seen (None-Few) per hpf Hyaline Casts None Seen (None-Few) per lpf Ur Culture Indicated? NO (NO) Attestation Statement - Attestation Attestation: I examined this patient and my medical decision-making was reviewed with the RETAIL EVENT COORDINATOR/PA/Advanced Practice Nurse/Resident Physician. I agree with the documented findings, disposition and treatment plan as described except to the extent set forth below. I did see the patient is spoke with her and her daughter and the patient does have extremely concerning symptoms, was found on the porch with diaphoresis, has been weak during the day with vomiting and dry heaves, she denies any pain specifically does not have any pain in the head, neck, chest, abdomen or back. No slurred speech, facial droop or confusion and this is confirmed by the daughter. No numbness or weakness of the extremities. Patient does have chronic vertigo which is present when she turns her head to the left and this is not new however does seem more prevalent today according to the daughter however the patient does not necessarily feel that this is the case. Patient does not have any fever, blood in the urine or stool or urinary infectious symptoms. Patient is not diaphoretic at this time. Initial blood pressure 2: 15 and now is 197. Has not taken medications today because the vomiting and this is likely the reason for her elevated blood pressure. Labs including troponin are pending. Chest x-ray, EKG, head CT, the patient will be watched closely and admitted to the hospital. 1947
[2018-05-17 19:46] LABS: Alanine Aminotransferase 10 Units/L (7-52); Albumin 4.1 g/dL (3.5-5.7); Albumin/Globulin Ratio 1.5 (1.1-2.2); Alkaline Phosphatase 84 Units/L (34-104); Aspartate Amino Transferase 16 Units/L (13-39); BUN/Creatinine Ratio 24 (6-26); Bilirubin,Total 0.7 mg/dL (0.3-1.0); Blood Urea Nitrogen 15 mg/dL (8-23); Calcium 7.9 mg/dL (8.6-10.3); Carbon Dioxide 26 mEq/L (23-29); Chloride 99 mEq/L (98-107); Globulin 2.8 g/dL (2.4-3.5); Glucose 208 mg/dL (70-105); Osmolality,Calculated 293 (280-300); Potassium 3.3 mEq/L (3.5-5.1); Sodium 138 mEq/L (136-145); Total Protein 6.9 g/dL (6.4-8.9); eGFR For Non-African Americans > 60 (> 60)
[2018-05-17] MEDS ORDERED: Ondansetron 4 MG/2 ML VIAL IVP ONE (20:50)
[2018-05-17 21:03] LABS: Bilirubin,Urine Negative (Negative); Blood,Urine Negative (Negative); Clarity,Urine Clear (Clear); Color,Urine Yellow (Yellow); Glucose,Urine (UA) 100 mg/dL (Normal); Ketones,Urine 40 mg/dL (Negative); Leukocyte Esterase,Urine Negative (Negative); Nitrite,Urine Negative (Negative); Protein,Urine 100 mg/dL (Neg-Trace); Specific Gravity,Urine 1.016 (1.010-1.025); Urobilinogen,Urine Normal (Normal)
[2018-05-17 21:05] LABS: Bacteria,Urine None Seen per hpf (None-Few); Hyaline Casts,Urine None Seen per lpf (None-Few); RBC,Urine 0-3 per hpf (0-3); Squamous Epithelial Cell,Urine Many per lpf (None-Few); WBC,Urine 0-3 per hpf (0-3)
[2018-05-17] MEDS ORDERED: Acetaminophen 325 MG TABLET PO ONE (21:11)
[2018-05-17] MEDS ORDERED: FLUoxetine HCl 10 MG CAPSULE PO ONE (21:12)
[2018-05-17] MEDS ORDERED: *HR* Metoprolol 5 MG/5 ML VIAL IVP ONE (21:57)
[2018-05-18] MEDS ORDERED: Acetaminophen 325 MG TABLET PO ONE (00:23)
[2018-05-18] MEDS ORDERED: D5% in Water 1,000 ML IVC PRN (00:24)
[2018-05-18] MEDS ORDERED: Dextrose Gel 15 GM/37.5 ML TUBE PO PRN ×2 (00:24)
[2018-05-18] MEDS ORDERED: *HR* Dextrose 50 % in Water (Syg) 50 ML SYRINGE IVP PRN (00:24)
--- NOTE | 2018-05-18 04:31 | Internal Med History&Physical ---
<Wilder Aranda - Last Filed: 05/18/18 04:25> Date of Encounter: 05/18/18 Time of Encounter: 04:25 Internal Medicine - H&P: HPI Chief complaint: Nausea/vomiting Admitted From: Home Plans for Post Hospital Care: Home History of present illness: Ms. Doherty is a 83 year old female presented chief complaint nausea/vomiting which started in the morning. Patient reports that she took her Fosamax in the morning and a few minutes later started experiencing nausea. She also was having diaphoresis and feeling very sick. Patient with the help of a recurrent family called EMS and reports at that time she decided not to come to the emergency department. After the patient laid down in bed but her nausea worsens , diaphoresis worsened. She had vomiting 2 but does not recall the contents of the vomit. She reports while walking to the bathroom she had difficulty balancing herself. Because of her worsening symptoms she called EMS and presented to [facility]. Patient denied headache, blurry vision, changes in hearing , fevers, chills, shortness of breath, cough, chest pain, palpitations, abdominal pain, diarrhea, constipation, lower extremity edema, numbness, tingling, slurred speech, weakness in her extremities. Patient reports she has a history of chronic vertigo and is on meclizine for this. Patient also was found to have elevated blood pressure in the systolic 200s and reports she is compliant with her medications but has had blood pressure this high in the past. Past Med Surg Social Fam HX - Past Medical History Medical history: diabetes, hyperlipidemia, hypertension, thyroid disease, valvular heart disease Additional medical history: Hx of heart murmur, parathyriod disease Psychiatric history: anxiety, bipolar - Past Surgical History Surgical History: non-contributory - Social History Smoking Status: Never smoker Smokeless Tobacco Status: No Alcohol use: none Drug use: none - Family History Brother Age at : 80 Cause of : Heart Hx Family Cardiac Disorders: Yes Hx Family Respiratory Disorders: No Hx Family Cancer: No Hx Family GI Disorders: No Hx Family Genitourinary Disorders: No Hx Family Endocrine Disorder: No Hx Family Musculoskeletal Disorders: No Hx Family Neuromuscular Disorders: No Hx Family Neurologic Disorders: No Hx Family HEENT Disorders: No Hx Family Autoimmune Disorders: No Hx Family Reproductive Disorders: No Hx Family Psychosocial Disorders: No Hx Family Medical Disorders: No Internal Medicine - H&P: Meds Cinacalcet [Sensipar] 30 mg PO HS 02/17/16 [History] Cholecalciferol (D-3) [Vitamin D] 4,000 unit PO DAILY 03/30/17 [History] Cyclobenzaprine [Flexeril] 5 mg PO HS 03/30/17 [History] FLUoxetine HCl [Prozac] 10 mg PO DAILY 03/30/17 [History] Lisinopril 30 mg PO DAILY 03/30/17 [History] Meclizine HCl [Verticalm] 25 mg PO BID PRN 04/01/17 [History] Metoprolol [Lopressor] 25 mg PO BID 04/01/17 [History] Ondansetron [Zofran] 8 mg PO Q8H PRN 04/01/17 [History] Potassium Chloride [Klor-Con 10] 10 meq PO TID 04/01/17 [History] Magnesium Oxide [Mag-Ox] 400 mg PO BID #60 tab 04/03/17 [Rx] Glimepiride [Amaryl] 0.5 mg PO DAILY 05/17/18 [History] hydrALAZINE [HydrALAZINE] 25 mg PO BID 05/17/18 [History] 3 Allergy/AdvReac Type Severity Reaction Status Date / Time aspirin Allergy Hives Verified 05/17/18 20:41 cephalexin [From Keflex] Allergy Hives Verified 05/17/18 20:41 ibuprofen [From Motrin] Allergy Hives Verified 05/17/18 20:41 propoxyphene Allergy Swelling Verified 05/17/18 20:41 [From Darvocet-N] of Lip/Tongue/Throat lorazepam [From Ativan] AdvReac Irritable Verified 05/17/18 20:41 All Systems PM: A 10-system review of systems was performed and is negative for pertinent findings except as documented above in the HPI. Review of systems: Constitutional: Denies fever, chills HEENT: Denies headache, vision changes, neck pain, sore throat, rhinorrhea Heart: Denies chest pain palpitations Lungs: Denies shortness of breath cough Abdomen: Denies abdominal pain and diarrhea. Reports nausea, vomiting Back: Denies back pain Kidney: Denies dysuria, hematuria Skin: Denies rash, lesions Extremities: Denies swelling, pain Neuro: Denies numbness and tingling - Constitutional Vitals: Temp Pulse Resp BP Pulse Ox 98.5 F 77 16 174/78 94 05/18/18 02:52 05/18/18 02:52 05/18/18 02:52 05/18/18 02:52 05/18/18 02:52 Exam: General: without distress HEENT: Head atraumatic, normocephalic, EOMI, PERRL, neck nontender to palpation , absent lymphadenopathy, Moist Mucous Membranes, Heart: Regular rate and rhythm with no murmur Lungs: Clear to auscultation bilaterally Abdomen: Soft nontender, nondistended positive bowel sounds Skin: warm and dry, absent rash Extremities:mild pedal edema bilaterally Neuro: Cranial nerves II through XII intact, UE and LE sensation equal bilaterally, UE and LEstrength 5/5, alert oriented 3, Heel to delarosa intact, finger to nose intact, b/l plantar reflexes downwards Vascular: Pedal and radial pulses 2 out of 4 Internal Med - H&P Results - Labs CBC & Chem 7: 05/17/18 19:07 05/17/18 19:07 - Assessment and plan (1) Hypertensive urgency Current Visit: Yes Status: Acute Assessment and plan: patient presented with BP of 215/81 patient was given lopressor IV and BP now 174/78 patient will be restarted on home lisinopril goal is to reduce BP slowly over next 24-48 hours. (2) Type 2 diabetes mellitus Current Visit: Yes Status: Chronic Assessment and plan: patient has non-insulin dependent DM2 will start on diabetic diet low dose SSI Qualifiers: Diabetes mellitus biological science technician insulin use: without biological science technician use Diabetes mellitus complication status: without complication Qualified Code(s): E11.9 - Type 2 diabetes mellitus without complications (3) DVT prophylaxis Current Visit: Yes Status: Acute Assessment and plan: heparin SQ (4) Nausea and vomiting Current Visit: Yes Status: Acute Assessment and plan: A 83-year-old female presents with chief complaint of nausea vomiting Patient had acute onset of nausea vomiting after taking Fosamax. She also complained of difficulty balancing herself when ambulating which is new She had 2 bouts of vomiting at home and 3 bouts of vomiting since resenting to the emergency department. Her potassium was 3.3 She is afebrile, white blood cell count TSH negative, urinalysis negative for uti CT head negative CXR negative neuro exam non-focal nonlateralizsing hgb WNL Differential includes: pill esophagitis, CVA (area postrema), hypertensive urgency we will give patient gi cocktail, start PPI, MRI head. zofran prn. replace potassium. clear liquid diet. advance diet as tolerated. Qualifiers: Vomiting type: unspecified Vomiting Intractability: intractable Qualified Code(s): R11.2 - Nausea with vomiting, unspecified - Time Spent With Patient Total time spent is greater than 50% in coordination of care (as documented) at patient's floor/unit and/or counseling patient: <Dereje Gamez - Last Filed: 05/18/18 06:30> Date of Encounter: 05/18/18 Time of Encounter: 05:30 - Constitutional Constitutional: no chills, no fever(s) - EENT Eyes: no blurry vision, no change in vision Ears: no ear pain, no tinnitus Nose, mouth and throat: no nasal congestion, no sinus pressure, no sore throat - Cardiovascular Cardiovascular ROS IM: dyspnea on exertion, syncope, no chest pain, no dyspnea, no orthopnea, no paroxysmal nocturnal dyspnea - Respiratory Respiratory: no cough, no chest congestion, no excessive phlegm production, no change in phlegm color - Gastrointestinal Gastrointestinal: nausea, vomiting, no abdominal pain, no diarrhea, no hematochezia, no loose stools, no melena - Genitourinary Genitourinary: no dysuria, no flank pain, no hematuria - Musculoskeletal Musculoskeletal ROS IM: arthralgias, no back pain - Integumentary Integumentary IM: no rash, no jaundice - Neurological Neurological ROS: dizziness, headache(s), no focal weakness, no frequent falls, no lack of coordination, no vertigo - Psychiatric Psychiatric: no anxiety, no depression - Endocrine Endocrine IM: no polydipsia, no polyuria - Allergic/Immunologic Allergic/Immunologic: GI upset with certain foods - Constitutional Vitals: Temp Pulse Resp BP Pulse Ox 98.5 F 77 16 174/78 94 05/18/18 02:52 05/18/18 02:52 05/18/18 02:52 05/18/18 02:52 05/18/18 02:52 General appearance: Present: cooperative, mild distress (nauseated), A&O X 3, pleasant, answers questions appropriately - Head Head exam: Present: atraumatic, normal inspection - Eye Eye exam: Present: EOMI, normal appearance, PERRL. Absent: scleral icterus Pupils: Present: normal accommodation - ENT ENT exam: Present: mucous membranes dry, normal exam, normal oropharynx - Neck Neck exam general surgery: Present: full ROM, supple. Absent: tenderness, nuchal rigidity, thyromegaly - Respiratory Respiratory exam: Present: CTAB. Absent: rales, rhonchi, wheezes - Cardiovascular Cardiovascular exam: Present: RRR, +S1, +S2, systolic murmur. Absent: diastolic murmur Additional comments: grade 2 type murmur noted on auscultation - GI/Abdominal GI/Abdominal exam: Present: normal bowel sounds, soft. Absent: hepatomegaly, mass, splenomegaly - Extremities Exam Extremities exam: Present: full ROM, pedal edema (trace), warm. Absent: joint swelling, tenderness - Neurological Exam Neurological exam: Present: alert, CN II-XII intact, oriented X3, no focal deficits, strengths equal and symetr throughout. Absent: facial droop, speech deficit - Psychiatric Psychiatric exam: Present: normal affect, normal mood - Skin Skin exam: Present: dry, intact, warm Internal Med - H&P Results - Labs CBC & Chem 7: 05/17/18 19:07 05/17/18 19:07 - Assessment and plan (1) DVT prophylaxis Current Visit: Yes Status: Acute (2) Type 2 diabetes mellitus Current Visit: Yes Status: Chronic Qualifiers: Diabetes mellitus senior care insulin use: without biological science technician use Diabetes mellitus complication status: without complication Qualified Code(s): E11.9 - Type 2 diabetes mellitus without complications (3) Hypertensive urgency Current Visit: Yes Status: Acute (4) Nausea and vomiting Current Visit: Yes Status: Acute Qualifiers: Vomiting type: unspecified Vomiting Intractability: intractable Qualified Code(s): R11.2 - Nausea with vomiting, unspecified - Time Spent With Patient Total time spent is greater than 50% in coordination of care (as documented) at patient's floor/unit and/or counseling patient: - Attending Attestation I discussed the patient KAKTOVIK, past medical history, review of systems, lab data , and exam findings with Dr. Aranda. I then saw and examined patient independently. She has no focal deficits or any neurologic complaints other than some nausea and vomiting. Based upon history, I have a high suspicion that her nausea and vomiting are secondary to pill esophagitis and effects from taking Fosamax. We will keep her on IV PPI and only a clear liquid diet for now. If symptoms do not improve or worsen, she may need upper endoscopy. Meanwhile, we will try and treat her blood pressure to keep her blood pressure stabilized. Given the vertigo and dizzy spell she has had off and on for quite some time, we are going to scan her head with an MRI to rule out any kind of neuro-vascular injury to her brain. I did note an type murmur on auscultation. She did confirm she has a history of aortic stenosis. Recent echo wass performed a few months ago I reviewed that echo report. She was noted to have mild to moderate aortic stenosis. Other than my comments above and noted physical exam findings, I agree with Dr. Aranda's assessment and plan.
[2018-05-18] MEDS ORDERED: GI Cocktail 40 ML EACH PO ONE (04:36)
[2018-05-18] MEDS ORDERED: Potassium Chloride Elixir 20 MEQ/15 ML UDC PO ONE (04:54)
[2018-05-18] MEDS: *HR* Heparin 5,000 UNIT/ML VIAL SQ SCH ×3 (06:21→20:59)
[2018-05-18] MEDS: Ondansetron 4 MG/2 ML VIAL IVP PRN ×2 (07:55→15:46)
[2018-05-18] MEDS: Lisinopril 20 MG TABLET PO SCH (07:56)
[2018-05-18] MEDS: FLUoxetine HCl 10 MG CAPSULE PO SCH (07:56)
[2018-05-18] MEDS: Insulin LISPRO 300 UNITS/3 ML VIAL SQ SCH ×4 (07:58→21:07)
--- NOTE | 2018-05-18 16:00 | Event Note ---
Date of Encounter: 05/18/18 Time of Encounter: 15:58 Seen and examined at beside; patient was seen earlier by Dr. Lane. In summary says she feels better. She believes symptoms were secondary to taking her Fosamax without taking it with a full glass of water and sitting up for 30 minutes. He is tolerating regular diet at this time. No further nausea or vomiting. Generally feels weak and tired but no lightheadedness or dizziness. Will consult PT/OT for further recommendations. Also check orthostatic BPs.
[2018-05-18] MEDS: Magnesium Oxide 400 MG TABLET PO SCH (20:59)
[2018-05-18] MEDS: hydrALAZINE 25 MG TABLET PO SCH (20:59)
[2018-05-19] MEDS: *HR* Heparin 5,000 UNIT/ML VIAL SQ SCH ×3 (05:07→22:07)
[2018-05-19 05:39] LABS: Hematocrit 42.2 % (35.3-44.9); Hemoglobin 13.6 g/dL (11.5-15.4); Mean Corpuscular HGB Conc 32.2 g/dL (31.6-35.5); Mean Corpuscular Hemoglobin 26.5 pg (28.0-33.3); Mean Corpuscular Volume 82.1 fL (83.0-100.0); Mean Platelet Volume 10.9 fL (9.4-12.4); Platelet Count 281 K/mcL (140-400); Red Blood Count 5.14 M/mcL (3.82-4.97); Red Cell Distribution Width 14.4 % (11.5-14.5)
[2018-05-19 05:52] LABS: BUN/Creatinine Ratio 25 (6-26); Blood Urea Nitrogen 17 mg/dL (8-23); Calcium 7.9 mg/dL (8.6-10.3); Carbon Dioxide 26 mEq/L (23-29); Chloride 102 mEq/L (98-107); Glucose 118 mg/dL (70-105); Osmolality,Calculated 289 (280-300); Potassium 3.3 mEq/L (3.5-5.1); Sodium 138 mEq/L (136-145); eGFR For Non-African Americans > 60 (> 60)
[2018-05-19] MEDS: Cholecalciferol (D-3) 1,000 UNIT TABLET PO SCH (07:59)
[2018-05-19] MEDS: FLUoxetine HCl 10 MG CAPSULE PO SCH (07:59)
[2018-05-19] MEDS: Magnesium Oxide 400 MG TABLET PO SCH ×2 (07:59→22:07)
[2018-05-19] MEDS: Insulin LISPRO 300 UNITS/3 ML VIAL SQ SCH ×4 (08:00→22:06)
[2018-05-19] MEDS: hydrALAZINE 25 MG TABLET PO SCH ×2 (08:00→22:07)
[2018-05-19] MEDS: Lisinopril 20 MG TABLET PO SCH (08:00)
[2018-05-19] MEDS: Ondansetron 4 MG/2 ML VIAL IVP PRN (13:26)
--- NOTE | 2018-05-19 15:19 | Internal Med Progress Note ---
Hospitalist Progress Note - Encounter Date of Encounter: 05/19/18 Time of Encounter: 15:16 - Subjective Interval History: heparin - Exam Vitals: Temp Pulse Resp BP Pulse Ox 98.2 F 62 18 183/74 95 05/19/18 15:03 05/19/18 15:03 05/19/18 15:03 05/19/18 15:03 05/19/18 15:03 Exam: G General appearance: Present: A&O X 3, forgetful. pleasant, no acute distress - Head Head exam: Present: atraumatic, normocephalic - Eye Eye exam: Present: PERRL, conjuntiva pink, sclera anicteric Pupils: Present: PERRL - Neck Neck exam general surgery: Present: supple, trachea midline. Absent: lymphadenopathy - Respiratory Respiratory exam: Present: chest wall tenderness, CTAB. Absent: accessory muscle use, rales, rhonchi, wheezes - Cardiovascular Cardiovascular exam: Present: RRR, +S1, +S2. Absent: diastolic murmur, gallop, rubs, systolic murmur - GI/Abdominal GI/Abdominal exam: Present: normal bowel sounds, soft, no peritoneal signs. Absent: distended, tenderness - Extremities Exam Extremities exam: Present: warm, radial pulses palpable and symmetrical. Absent : calf tenderness, cyanotic, pedal edema - Neurological Exam Neurological exam: Present: CN II-XII intact, oriented X3, no focal deficits. Absent: pronater drift, facial droop, speech deficit - Skin Skin exam: Present: dry, intact - Assessment and Plan (1) Nausea and vomiting Current Visit: Yes Status: Acute Assessment and Plan: presented with acute onset of nausea vomiting after taking Fosamax. Of note, the patient did not take with full glass of water or sit up for 30 minutes afterwards. Sx's improved with supportive care with no recurrence. 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 (2) Lightheadedness Current Visit: Yes Status: Acute Assessment and Plan: with dizziness on day of arrival. Brain MRI non-acute. No evidence of orthostasis. Suspect secondary to dehydration with acute nausea vomiting. UA by PT/OT who is recommending 24-hour care at discharge was family states they can provide. Symptoms resolved with no recurrence. No further workup indicated at this time. (3) Type 2 diabetes mellitus Current Visit: Yes Status: Chronic Assessment and Plan: per hx. Holding home oral hypoglycemics. Blood sugars controlled. Continue SSI. Monitor blood sugar and titrate PRN (4) Hypertensive urgency Current Visit: Yes Status: Acute Assessment and Plan: with SBPs in 200s. Possibly secondary to retching with nausea and vomiting however BP remains slightly elevated. Continue home BB, hydralazine. Increase home KOJO. PRN Hydralazine. Monitor BP and titrate PRN (5) Leukocytosis Current Visit: Yes Status: Acute Assessment and Plan: WBC 14K; previously CBC normal. Etiology unknown at this time. No obvious infectious source. UA not indicative of UTI. CXR without infiltrate. Afebrile , no cardiac hypotension. Possibly reactive. Monitor repeat CBC. DVT Prophylaxis: heparin - Time Spent with Patient Total time spent is greater than 50% in coordination of care (as documented) at patient's floor/unit and/or counseling patient: Internal Medicine: Result - Labs CBC & Chem 7: 05/19/18 03:52 05/19/18 03:52 Labs: Short CBC 05/19/18 Range/Units 03:52 WBC 14.6 H (4.3-11.1) K/mcL Hgb 13.6 (11.5-15.4) g/dL Hct 42.2 (35.3-44.9) % Plt Count 281 (140-400) K/mcL BMP 05/19/18 03:52 Sodium 138 Potassium 3.3 L Chloride 102 Carbon Dioxide 26 BUN 17 Creatinine 0.68 Glucose 118 H Calcium 7.9 L Consult Discharge Plan - Plan Referrals: Canelo Sorto DO [Primary Care Provider] - 05/26/18 11:30 am () (1) Nausea and vomiting Qualifiers: Vomiting type: unspecified Vomiting Intractability: intractable Qualified Code(s): R11.2 - Nausea with vomiting, unspecified (3) Type 2 diabetes mellitus Qualifiers: Diabetes mellitus shelter insulin use: without shelter use Diabetes mellitus complication status: without complication Qualified Code(s): E11.9 - Type 2 diabetes mellitus without complications
[2018-05-20 04:42] LABS: Hematocrit 41.9 % (35.3-44.9); Hemoglobin 13.3 g/dL (11.5-15.4); Mean Corpuscular HGB Conc 31.7 g/dL (31.6-35.5); Mean Corpuscular Hemoglobin 26.2 pg (28.0-33.3); Mean Corpuscular Volume 82.6 fL (83.0-100.0); Mean Platelet Volume 10.7 fL (9.4-12.4); Platelet Count 270 K/mcL (140-400); Red Blood Count 5.07 M/mcL (3.82-4.97); Red Cell Distribution Width 14.6 % (11.5-14.5)
[2018-05-20 04:58] LABS: BUN/Creatinine Ratio 29 (6-26); Blood Urea Nitrogen 20 mg/dL (8-23); Calcium 8.3 mg/dL (8.6-10.3); Carbon Dioxide 27 mEq/L (23-29); Chloride 103 mEq/L (98-107); Glucose 100 mg/dL (70-105); Osmolality,Calculated 289 (280-300); Potassium 3.7 mEq/L (3.5-5.1); Sodium 138 mEq/L (136-145); eGFR For Non-African Americans > 60 (> 60)
[2018-05-20] MEDS: *HR* Heparin 5,000 UNIT/ML VIAL SQ SCH ×3 (05:57→21:04)
[2018-05-20] MEDS: Insulin LISPRO 300 UNITS/3 ML VIAL SQ SCH ×4 (07:21→20:58)
[2018-05-20] MEDS: Lisinopril 20 MG TABLET PO SCH (09:01)
[2018-05-20] MEDS: FLUoxetine HCl 10 MG CAPSULE PO SCH (09:01)
[2018-05-20] MEDS: Magnesium Oxide 400 MG TABLET PO SCH ×2 (09:02→21:03)
[2018-05-20] MEDS: hydrALAZINE 25 MG TABLET PO SCH ×2 (09:02→21:03)
[2018-05-20] MEDS: Cholecalciferol (D-3) 1,000 UNIT TABLET PO SCH (09:02)
--- NOTE | 2018-05-20 09:30 | Discharge Summary ---
<Demario Walkerciera - Last Filed: 05/20/18 09:22> Orders not resulted at time of discharge: Pending orders 05/21/18 04:00 BMP [Basic Metabolic Panel] AM 0400 Complete Blood Count w/o Diff [HEME] AM 0400 05/22/18 04:00 BMP [Basic Metabolic Panel] AM 0400 Complete Blood Count w/o Diff [HEME] AM 0400 05/23/18 04:00 BMP [Basic Metabolic Panel] AM 0400 Complete Blood Count w/o Diff [HEME] AM 0400 Date of Encounter: 05/20/18 Time of Encounter: 09:22 - Discharge Diagnosis (1) Leukocytosis Priority: Secondary Status: Acute Qualifiers: Leukocytosis type: unspecified Qualified Code(s): D72.829 - Elevated white blood cell count, unspecified (2) Nausea and vomiting Priority: Primary Status: Acute Qualifiers: Vomiting type: unspecified Vomiting Intractability: intractable Qualified Code(s): R11.2 - Nausea with vomiting, unspecified (3) Hypertensive urgency Priority: Secondary Status: Acute (4) Type 2 diabetes mellitus Priority: Secondary Status: Chronic Qualifiers: Diabetes mellitus nursing home insulin use: without nursing home use Diabetes mellitus complication status: without complication Qualified Code(s): E11.9 - Type 2 diabetes mellitus without complications (5) Lightheadedness Priority: Secondary Status: Acute Hospital course: Ms. Doherty is a 83 year old female with past medical history of diabetes, hyperlipidemia, hypertension, hypothyroidism, valvular heart disease, osteoporosis. Patient arrived to [facility] on 05/18/18 with chief complaint of nausea/ vomiting which started earlier that day. This occurred after taking her Fosamax in the morning, which she did not take as instructed on label (will full glass of water, on empty stomach). Patient also complained of significant weakness and dizziness as well. Upon arrival to the hospital, she was found to be in hypertensive urgency, for which she received lopressor. Because of her generalized weakness, CT of the head was done and showed no acute abnormality. Patient also had brain MRI done showing no acute infarction with mild parenchymal volume loss and mild chronic microvascular ischemic changes. Throughout her hospitalization, her blood pressure was closely monitored, and her home dose of lisinopril was increased. Patient did have slight leukocytosis upon admission. She complained of no cough, no congestion, no burning with urination. UA, chest x-ray unremarkable. Infectious work up was negative and patient did not meet sepsis criteria. It is likely that her leukocytosis was reactive secondary to anxiety, nausea, vomiting, hypertensive urgency. Her WBC did improve during her hospitalization. Patient was evaluated by PT/OT, who recommended home health upon discharge with therapeutic exercises. Patient's nausea and vomiting have resolved completely, and she felt a lot better upon discharge. Patient was discharged home in stable condition. She was instructed to continue her Fosamax and take it in the morning on an empty stomach with a full glass of water at least one hour before eating. Discharge discussed with: patient - Time Spent with Patient Total time spent providing and/or coordinating discharge services: Less than 30 minutes - Discharge Medications Prescriptions: Ciprofloxacin [Cipro] 500 mg PO BID 4 Days #8 tablet Cyanocobalamin (B-12) [Vitamin B12] 1,000 mcg PO DAILY #30 tablet Home Medications: Cinacalcet [Sensipar] 30 mg PO HS 02/17/16 [History] Cholecalciferol (D-3) [Vitamin D] 4,000 unit PO DAILY 03/30/17 [History] Cyclobenzaprine [Flexeril] 5 mg PO HS 03/30/17 [History] FLUoxetine HCl [Prozac] 10 mg PO DAILY 03/30/17 [History] Meclizine HCl [Verticalm] 25 mg PO BID PRN 04/01/17 [History] Metoprolol [Lopressor] 25 mg PO BID 04/01/17 [History] Ondansetron [Zofran] 8 mg PO Q8H PRN 04/01/17 [History] Potassium Chloride [Klor-Con 10] 10 meq PO TID 04/01/17 [History] Magnesium Oxide [Mag-Ox] 400 mg PO BID #60 tab 04/03/17 [Rx] Glimepiride [Amaryl] 0.5 mg PO DAILY 05/17/18 [History] Lisinopril [Zestril] 40 mg PO DAILY #30 tablet 05/20/18 [Rx] hydrALAZINE [HydrALAZINE] 25 mg PO TID #90 tablet 05/20/18 [Rx] Meloxicam [Mobic] 7.5 mg PO DAILY 05/21/18 [History] Ciprofloxacin [Cipro] 500 mg PO BID 4 Days #8 tablet 05/22/18 [Rx] Cyanocobalamin (B-12) [Vitamin B12] 1,000 mcg PO DAILY #30 tablet 05/22/18 [Rx] Allergies/Adverse Reactions: 3 Allergy/AdvReac Type Severity Reaction Status Date / Time aspirin Allergy Hives Verified 05/17/18 20:41 cephalexin [From Keflex] Allergy Hives Verified 05/17/18 20:41 ibuprofen [From Motrin] Allergy Hives Verified 05/17/18 20:41 propoxyphene Allergy Swelling Verified 05/17/18 20:41 [From Darvocet-N] of Lip/Tongue/Throat lorazepam [From Ativan] AdvReac Irritable Verified 05/17/18 20:41 Date of admission: 05/17/18 22:27 Primary care physician: Canelo Sorto DO Consults: 05/18/18 13:55 Consult to Physical Therapy [CONS] Routine Comment: Evaluate, develop and implement POC Reason for Consult: generalized weakness Does patient have active BEDREST order?: No Is patient medically & hemodynamically stable?: Yes OT [Consult to Occupational Therapy] [CONS] Routine Comment: Evaluate, develop and implement POC Reason for Consult: generalized weakness Does patient have active BEDREST order?: No Is patient medically & hemodynamically stable?: Yes Discharging clinician: Soni Walker Anticipated date of discharge: 05/20/18 - Constitutional Vitals: Temp Pulse Resp BP Pulse Ox 97.9 F 91 16 208/87 91 05/20/18 07:22 05/20/18 07:22 05/20/18 07:22 05/20/18 07:22 05/20/18 07:22 General appearance: Present: cooperative, mild distress (nauseated), A&O X 3, pleasant, answers questions appropriately Exam: no acute distress - Head Head exam: Present: atraumatic, normocephalic - ENT ENT exam: Present: mucous membranes moist - Neck Neck exam general surgery: Present: supple, trachea midline - Respiratory Respiratory exam: Present: CTAB - Cardiovascular Cardiovascular exam: Present: RRR, +S1, +S2 Additional comments: +3 systolic murmur heard best at right upper sternal border - GI/Abdominal GI/Abdominal exam: Present: normal bowel sounds, soft. Absent: distended, tenderness - Extremities Exam Extremities exam: Absent: cyanotic, pedal edema - Neurological Exam Neurological exam: Present: alert, oriented X3, no focal deficits - Psychiatric Psychiatric exam: Present: normal affect, normal mood - Skin Skin exam: Present: intact - Patient Status Disposition: Home, Self-Care Condition: Good Functional capacity at discharge: independent ambulation Overall status at discharge: patient is back to baseline - Discharge Instructions Instructions: Lisinopril (By mouth), Hydralazine (By mouth), Diabetes Mellitus Type 2 in Adults (DC), Chronic Hypertension (DC) Follow Up With: Canelo Sorto DO [Primary Care Provider] - 05/26/18 11:30 am () Additional Instructions: Follow-up with your primary care provider within one week of discharge. Continue all medications as prescribed. Please note that your dose of lisinopril and hydralazine have been increased, and a new prescriptions have been given to. You may continue taking Fosamax, please take in the morning, on an empty stomach with a full glass of water, at least 60 minutes prior to eating. Please return to the emergency department if symptoms recur. - Diet and Activity Activity: as per physical therapy Diet: diabetic diet <Mario Wyliebu - Last Filed: 05/22/18 17:55> Date of Encounter: 05/22/18 - Discharge Diagnosis (1) Type 2 diabetes mellitus Status: Chronic Qualifiers: Diabetes mellitus oil heaterman insulin use: without nursing home use Diabetes mellitus complication status: without complication Qualified Code(s): E11.9 - Type 2 diabetes mellitus without complications (2) Hypertensive urgency Status: Acute (3) Nausea and vomiting Status: Acute Qualifiers: Vomiting type: unspecified Vomiting Intractability: intractable Qualified Code(s): R11.2 - Nausea with vomiting, unspecified (4) Lightheadedness Status: Acute (5) Leukocytosis Status: Acute Qualifiers: Leukocytosis type: unspecified Qualified Code(s): D72.829 - Elevated white blood cell count, unspecified (6) DVT prophylaxis Status: Acute (7) Back pain Status: Resolved Qualifiers: Back pain location: thoracic back pain Chronicity: acute Back pain laterality: midline Qualified Code(s): M54.6 - Pain in thoracic spine Hospital course: Ms. oDherty is a 83 year old female - Time Spent with Patient Total time spent providing and/or coordinating discharge services: Date of admission: 05/21/18 12:54 Primary care physician: Canelo Sorto DO - Constitutional Vitals: Temp Pulse Resp BP Pulse Ox 97.5 F L 84 14 194/93 96 05/22/18 07:37 05/22/18 07:37 05/22/18 07:37 05/22/18 07:37 05/22/18 07:37 - Attending Attestation I examined this patient and my medical decision-making was reviewed with the Resident Physician Dr. Walker . I agree with the documented findings, disposition and treatment plan as described except to the extent set forth below. Ms. Doherty is a 83 year old female with past medical history of diabetes, hyperlipidemia, hypertension, hypothyroidism, valvular heart disease, osteoporosis. Patient arrived to [facility] on 05/18/18 with chief complaint of nausea/ vomiting which started after she took Fosamax. She happened to have uncontrolled hypertension upon arrival to the ER. Patient was admitted in the hospital and had stroke workup everything came back is negative. With symptomatic and supportive care her nausea vomiting improved. She is tolerating PO intake well. Patient was evaluated by PT/OT, who recommended home health upon discharge with therapeutic exercises. Patient was about to leave the hospital, suddenly she complaining about back pain radiating to her and her both legs. CTA of the chest was done which did not show any aortic disection. Her current episode seems to more like anxiety/panic attack. She is A, A, O x 3. Denied any more back pain / leg pain. Her B12 came back as low,so started her on B12 supplements Her WBC elevated today.. Did further work up for infectious source. UA came back abnormal. So started her on empirical abx Cipro. Her WBC started trending down. Patient states that she is feeling better today wants to go home. Medically stable to DC home today. Recommended outpatient follow-up with CBC Addendum entered and electronically signed by Soni Walker DO 05/22/18 09:44 : Addendum: Discharge date: 05/22/18 Hospital Course Addendum: Patient was originally supposed to be discharged on 05/20/18. However, she was getting ready to leave and she developed severe upper thoracic back pain and could not stand up. In setting of elevated blood pressure , there was concern for aortic dissection, so stat CTA chest, abdomen, pelvis was ordered. CTA showed no evidence of aneurysm of dissection, no acute abnormality in the chest, abdomen, or pelvis. Patient was placed on pRN pain medications and her symptoms have resolved. It is likely that this episode is psych related, as she has a significant history of anxiety/depression. During patient's hospitalization, there was a significant elevation of her WBC and initially no source of infection was found. UA was contaminated specimen with little WBC and many bacteria. Patient stated later on she had some odor to her urine, but no dysuria or suprapubic tenderness. She was started on ciprofloxacin for UTI and her WBC decreased significantly. She will be discharged home for total of 5 days antibiotics. If WBC persistently elevated, consider heme/onc consult. Notes to outpatient provider: -Incidental finding on CTA of 1.2cm oval mass in the left lateral breast. Recommend follow up with mammogram or ultrasound. -Her elevated WBC likely secondary to UTI. If persistently elevated, consider heme onc consult.
--- NOTE | 2018-05-20 09:59 | Physician Discharge Referral ---
Home Health/Hosp Referral Info Transfer to: Home Health Provider in Charge Post Discharge: PCP - Diagnosis (1) Nausea and vomiting Priority: Primary Status: Acute (2) Hypertensive urgency Priority: Secondary Status: Acute (3) Type 2 diabetes mellitus Priority: Secondary Status: Chronic (4) Lightheadedness Priority: Secondary Status: Acute (5) Leukocytosis Priority: Secondary Status: Acute - Respiratory Orders Smoking Cessation: Smoking cessation has been advised. For more information, call the [place] Tobacco Quit Line at 8-996-YNHA-NOW. - Activity Activity Orders: Ambulate - Services Needed Following services are medically necessary services: Home Health Aide, Physical Therapy, Occupational Therapy - Transfer Medications Prescriptions: hydrALAZINE [HydrALAZINE] 25 mg PO TID #90 tablet Lisinopril [Zestril] 40 mg PO DAILY #30 tablet Home Medications: Cinacalcet [Sensipar] 30 mg PO HS 02/17/16 [History] Cholecalciferol (D-3) [Vitamin D] 4,000 unit PO DAILY 03/30/17 [History] Cyclobenzaprine [Flexeril] 5 mg PO HS 03/30/17 [History] FLUoxetine HCl [Prozac] 10 mg PO DAILY 03/30/17 [History] Meclizine HCl [Verticalm] 25 mg PO BID PRN 04/01/17 [History] Metoprolol [Lopressor] 25 mg PO BID 04/01/17 [History] Ondansetron [Zofran] 8 mg PO Q8H PRN 04/01/17 [History] Potassium Chloride [Klor-Con 10] 10 meq PO TID 04/01/17 [History] Magnesium Oxide [Mag-Ox] 400 mg PO BID #60 tab 04/03/17 [Rx] Glimepiride [Amaryl] 0.5 mg PO DAILY 05/17/18 [History] Lisinopril [Zestril] 40 mg PO DAILY #30 tablet 05/20/18 [Rx] hydrALAZINE [HydrALAZINE] 25 mg PO TID #90 tablet 05/20/18 [Rx] Allergies/Adverse Reactions: 3 Allergy/AdvReac Type Severity Reaction Status Date / Time aspirin Allergy Hives Verified 05/17/18 20:41 cephalexin [From Keflex] Allergy Hives Verified 09/05/18 20:41 ibuprofen [From Motrin] Allergy Hives Verified 05/17/18 20:41 propoxyphene Allergy Swelling Verified 05/17/18 20:41 [From Darvocet-N] of Lip/Tongue/Throat lorazepam [From Ativan] AdvReac Irritable Verified 05/17/18 20:41 Certification: Further, I certify that my clinical findings support that this patient is homebound (i.e. absences from home require considerable and taxing effort and are for medical reasons or anglican services or infrequently or short duration when for other reasons) because: Homebound Reason: Patient requires assistance of a person or device to safely leave home Attestation: My signature below is to certify that this patient is under my care and that I, or nurse practitioner, or a physician's paperhanger assistant working with me, has a face-to -face encounter with this patient.
--- NOTE | 2018-05-20 11:24 | Electrocardiograph Report ---
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
[2018-05-20] MEDS ORDERED: *HR* LORazepam 2 MG/ML VIAL IVP ONE (12:13)
[2018-05-20] MEDS ORDERED: Isovue-370 500 ML INFUS..BTL IV ONE ×2 (12:13→12:55)
[2018-05-20] MEDS ORDERED: Haloperidol Lactate 5 MG/ML VIAL IVP ONE (12:18)
[2018-05-20] MEDS ORDERED: *HR* OxyCODONE/APAP 5/325 TABLET PO PRN (14:32)
[2018-05-20] MEDS ORDERED: Haloperidol Lactate 5 MG/ML VIAL IVP PRN (14:33)
--- NOTE | 2018-05-20 14:40 | Internal Med Progress Note ---
<Soni Walker - Last Filed: 05/20/18 14:37> Hospitalist Progress Note - Encounter Date of Encounter: 05/20/18 Time of Encounter: 14:37 - Subjective Interval History: 83F evaluated at bedside. She was ready to be discharged when she started to have severe back pain radiating down both legs. Patient was severely anxious and stated she is too scare to go home. - Exam Vitals: Temp Pulse Resp BP Pulse Ox 99.2 F 100 18 188/81 92 05/20/18 13:04 05/20/18 13:04 05/20/18 13:04 05/20/18 13:04 05/20/18 13:04 Exam: no acute distress - Assessment and Plan (1) Nausea and vomiting Current Visit: Yes Status: Acute Assessment and Plan: likely secondary to inappropriately taking fosamax. vomiting resolved. Plan: patient educated on how to take this medication correctly. (2) Hypertensive urgency Current Visit: Yes Status: Acute Assessment and Plan: hypertensive urgency-no evidence of end organ damage. Plan: increased home dose of lisinopril to 40mg PO daily continue home hydralazine and metoprolol PRN IV hydralazine (3) Type 2 diabetes mellitus Current Visit: Yes Status: Chronic Assessment and Plan: hold amaryl. Low dose Sliding scale insulin, ACHS accuchecks (4) Lightheadedness Current Visit: Yes Status: Acute Assessment and Plan: resolved (5) Leukocytosis Current Visit: Yes Status: Acute Assessment and Plan: WBC elevated but trending down. no source of infection found and patient does not meet sepsis criteria. UA, CXR, chest CT unremarkable. Likely reactive from hypertensive urgency, nausea, vomiting, pain, etc (6) DVT prophylaxis Current Visit: Yes Status: Acute Assessment and Plan: Heparin SQ (7) Back pain Current Visit: Yes Status: Acute Assessment and Plan: patient was ready to be discharged home today when she started to complain of severe thoracic back pain radiating down both legs. In setting of hypertensive urgency, there was concern for aortic dissection. Stat CTA chest, abdomen, pelvis was done, but did not show any dissection. Patient and family very concerned and stated they did not want her to leave hospital today. Plan: PRN percocet q4H neuro checks check ESR, CRP, CMP, B12, Folate trend troponins. DVT Prophylaxis: heparin SQ - Time Spent with Patient Total time spent is greater than 50% in coordination of care (as documented) at patient's floor/unit and/or counseling patient: less than 15 minutes Plan of Care Discussed with: family Internal Medicine: Result - Labs CBC & Chem 7: 05/20/18 02:58 05/20/18 02:58 Labs: Short CBC 05/20/18 Range/Units 02:58 WBC 13.2 H (4.3-11.1) K/mcL Hgb 13.3 (11.5-15.4) g/dL Hct 41.9 (35.3-44.9) % Plt Count 270 (140-400) K/mcL BMP 05/20/18 02:58 Sodium 138 Potassium 3.7 Chloride 103 Carbon Dioxide 27 BUN 20 Creatinine 0.69 Glucose 100 Calcium 8.3 L - Impressions Impressions Abdomen/Pelvis CTA 05/20/18 00:00 IMPRESSION: 1. No evidence of aortic aneurysm or dissection. 2. No acute abnormality within the chest, abdomen, and pelvis. 3. Gallbladder contains sludge or tiny stones. 4. Colonic diverticulosis without evidence for acute diverticulitis. 5. In the lateral left breast, there is a 1.2 cm oval mass. Recommend correlation with nonemergent mammogram and ultrasound. D/ / Tyrell Sharpe MD / Tyrell Sharpe MD Interpreting Provider: Tyrell Sharpe MD Chest CTA 05/20/18 12:13 IMPRESSION: 1. No evidence of aortic aneurysm or dissection. 2. No acute abnormality within the chest, abdomen, and pelvis. 3. Gallbladder contains sludge or tiny stones. 4. Colonic diverticulosis without evidence for acute diverticulitis. 5. In the lateral left breast, there is a 1.2 cm oval mass. Recommend correlation with nonemergent mammogram and ultrasound. D/ / Tyrell Sharpe MD / Tyrell Sharpe MD Interpreting Provider: Tyrell Sharpe MD Consult Discharge Plan - Plan Instructions: Lisinopril (By mouth), Hydralazine (By mouth), Diabetes Mellitus Type 2 in Adults (DC), Chronic Hypertension (DC) Additional Instructions: Follow-up with your primary care provider within one week of discharge. Continue all medications as prescribed. Please note that your dose of lisinopril and hydralazine have been increased, and a new prescriptions have been given to. You may continue taking Fosamax, please take in the morning, on an empty stomach with a full glass of water, at least 60 minutes prior to eating. Please return to the emergency department if symptoms recur. Referrals: Canelo Sorto DO [Primary Care Provider] - 05/26/18 11:30 am () Prescriptions: hydrALAZINE [HydrALAZINE] 25 mg PO TID #90 tablet Lisinopril [Zestril] 40 mg PO DAILY #30 tablet <Stormy Wylie - Last Filed: 05/20/18 15:04> Hospitalist Progress Note - Encounter Date of Encounter: 05/20/18 - Exam Vitals: Temp Pulse Resp BP Pulse Ox 99.2 F 100 18 188/81 92 05/20/18 13:04 05/20/18 13:04 05/20/18 13:04 05/20/18 13:04 05/20/18 13:04 - Assessment and Plan (1) Type 2 diabetes mellitus Current Visit: Yes Status: Chronic (2) Hypertensive urgency Current Visit: Yes Status: Acute (3) Nausea and vomiting Current Visit: Yes Status: Acute (4) Lightheadedness Current Visit: Yes Status: Acute (5) Leukocytosis Current Visit: Yes Status: Acute (6) DVT prophylaxis Current Visit: Yes Status: Acute (7) Back pain Current Visit: Yes Status: Acute - Time Spent with Patient Total time spent is greater than 50% in coordination of care (as documented) at patient's floor/unit and/or counseling patient: Internal Medicine: Result - Labs CBC & Chem 7: 05/20/18 02:58 05/20/18 02:58 Labs: Short CBC 05/20/18 Range/Units 02:58 WBC 13.2 H (4.3-11.1) K/mcL Hgb 13.3 (11.5-15.4) g/dL Hct 41.9 (35.3-44.9) % Plt Count 270 (140-400) K/mcL BMP 05/20/18 02:58 Sodium 138 Potassium 3.7 Chloride 103 Carbon Dioxide 27 BUN 20 Creatinine 0.69 Glucose 100 Calcium 8.3 L - Impressions Impressions Abdomen/Pelvis CTA 05/20/18 00:00 IMPRESSION: 1. No evidence of aortic aneurysm or dissection. 2. No acute abnormality within the chest, abdomen, and pelvis. 3. Gallbladder contains sludge or tiny stones. 4. Colonic diverticulosis without evidence for acute diverticulitis. 5. In the lateral left breast, there is a 1.2 cm oval mass. Recommend correlation with nonemergent mammogram and ultrasound. D/ / Tyrell Sharpe MD / Tyrell Sharpe MD Interpreting Provider: Tyrell Sharpe MD Chest CTA 05/20/18 12:13 IMPRESSION: 1. No evidence of aortic aneurysm or dissection. 2. No acute abnormality within the chest, abdomen, and pelvis. 3. Gallbladder contains sludge or tiny stones. 4. Colonic diverticulosis without evidence for acute diverticulitis. 5. In the lateral left breast, there is a 1.2 cm oval mass. Recommend correlation with nonemergent mammogram and ultrasound. D/ / Tyrell Sharpe MD / Tyrell Sharpe MD Interpreting Provider: Tyrell Sharpe MD - Attending Attestation I examined this patient and my medical decision-making was reviewed with the Resident Physician Dr. Walker . I agree with the documented findings, disposition and treatment plan as described except to the extent set forth below. Ms. Doherty is a 83 year old female with past medical history of diabetes, hyperlipidemia, hypertension, hypothyroidism, valvular heart disease, osteoporosis. Patient arrived to [facility] on 05/18/18 with chief complaint of nausea/ vomiting which started after she took Fosamax. She happened to have uncontrolled hypertension upon arrival to the ER. Patient was admitted in the hospital and had stroke workup everything came back is negative. With symptomatic and supportive care her nausea vomiting improved. She is tolerating PO intake well. Patient was evaluated by PT/OT, who recommended home health upon discharge with therapeutic exercises. Patient was about to leave the hospital, suddenly she complaining about back pain radiating to her and her both legs. CTA of the chest was done which did not show any aortic disection. Her current episode seems to more like anxiety/panic attack. Also concerning for restless leg syndrome. Continue close monitoring. Continue on tele. We will check ESR, CRP, TSH, B12, folic acid, Mg and electrolytes. Talked to patient's family at bed side and explained to them about current care <Soni aWlker - Last Filed: 05/20/18 14:37> (1) Nausea and vomiting Qualifiers: Vomiting type: unspecified Vomiting Intractability: intractable Qualified Code(s): R11.2 - Nausea with vomiting, unspecified (3) Type 2 diabetes mellitus Qualifiers: Diabetes mellitus residential insulin use: without residential use Diabetes mellitus complication status: without complication Qualified Code(s): E11.9 - Type 2 diabetes mellitus without complications (5) Leukocytosis Qualifiers: Leukocytosis type: unspecified Qualified Code(s): D72.829 - Elevated white blood cell count, unspecified (7) Back pain Qualifiers: Back pain location: thoracic back pain Chronicity: acute Back pain laterality: midline Qualified Code(s): M54.6 - Pain in thoracic spine <Stormy Wylie - Last Filed: 05/20/18 15:04> (1) Type 2 diabetes mellitus Qualifiers: Diabetes mellitus residential insulin use: without 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
[2018-05-20 15:46] LABS: Alanine Aminotransferase 26 Units/L (7-52); Albumin 3.5 g/dL (3.5-5.7); Albumin/Globulin Ratio 1.3 (1.1-2.2); Alkaline Phosphatase 81 Units/L (34-104); Aspartate Amino Transferase 50 Units/L (13-39); BUN/Creatinine Ratio 28 (6-26); Bilirubin,Total 0.7 mg/dL (0.3-1.0); Blood Urea Nitrogen 19 mg/dL (8-23); C-Reactive Protein 14 mg/L (Less than 10); Carbon Dioxide 24 mEq/L (23-29); Chloride 99 mEq/L (98-107); Globulin 2.7 g/dL (2.4-3.5); Glucose 87 mg/dL (70-105); Osmolality,Calculated 280 (280-300); Potassium 3.3 mEq/L (3.5-5.1); Sodium 134 mEq/L (136-145); Total Protein 6.2 g/dL (6.4-8.9); eGFR For Non-African Americans > 60 (> 60)
[2018-05-20 16:11] LABS: Folate 12.1 ng/mL (3.0-16.0)
[2018-05-20] MEDS ORDERED: Potassium Chloride Elixir 20 MEQ/15 ML UDC PO ONE (17:10)
[2018-05-20] MEDS: Cyanocobalamin (B-12) 1,000 MCG TABLET PO SCH (17:50)
[2018-05-21 02:39] LABS: Red Cell Distribution Width 14.6 % (11.5-14.5)
[2018-05-21 02:40] LABS: Hematocrit 39.4 % (35.3-44.9); Hemoglobin 12.7 g/dL (11.5-15.4); Mean Corpuscular HGB Conc 32.2 g/dL (31.6-35.5); Mean Corpuscular Hemoglobin 26.1 pg (28.0-33.3); Mean Corpuscular Volume 81.1 fL (83.0-100.0); Mean Platelet Volume 10.2 fL (9.4-12.4); Platelet Count 201 K/mcL (140-400); Red Blood Count 4.86 M/mcL (3.82-4.97)
[2018-05-21] MEDS: *HR* Heparin 5,000 UNIT/ML VIAL SQ SCH ×3 (06:27→20:36)
[2018-05-21 08:19] LABS: Monocytes % 3.8 %; Segmented Neutrophils % 90.4 %
[2018-05-21 08:21] LABS: Basophils # 0.1 K/mcL (0.0-0.2); Basophils % 0.4 %; Eosinophils % 0.1 %; Hematocrit 40.3 % (35.3-44.9); Hemoglobin 13.1 g/dL (11.5-15.4); Lymphocytes # 1.4 K/mcL (0.6-4.6); Lymphocytes % 4.3 %; Mean Corpuscular HGB Conc 32.5 g/dL (31.6-35.5); Mean Corpuscular Hemoglobin 26.3 pg (28.0-33.3); Mean Corpuscular Volume 80.8 fL (83.0-100.0); Mean Platelet Volume 10.7 fL (9.4-12.4); Monocytes # 1.3 K/mcL (0.0-1.3); Platelet Count 212 K/mcL (140-400); Red Blood Count 4.99 M/mcL (3.82-4.97); Red Cell Distribution Width 14.7 % (11.5-14.5)
[2018-05-21 08:27] LABS: Neutrophils # 29.8 K/mcL (1.6-8.9)
[2018-05-21 08:28] LABS: Platelet Estimate Normal (Normal)
[2018-05-21 08:59] LABS: BUN/Creatinine Ratio 28 (6-26); Blood Urea Nitrogen 19 mg/dL (8-23); Calcium 8.2 mg/dL (8.6-10.3); Carbon Dioxide 25 mEq/L (23-29); Chloride 99 mEq/L (98-107); Glucose 147 mg/dL (70-105); Osmolality,Calculated 279 (280-300); Potassium 4.2 mEq/L (3.5-5.1); Sodium 132 mEq/L (136-145); eGFR For Non-African Americans > 60 (> 60)
[2018-05-21] MEDS: Cyanocobalamin (B-12) 1,000 MCG TABLET PO SCH (09:02)
[2018-05-21] MEDS: Magnesium Oxide 400 MG TABLET PO SCH ×2 (09:02→20:36)
[2018-05-21] MEDS: Cholecalciferol (D-3) 1,000 UNIT TABLET PO SCH (09:02)
[2018-05-21] MEDS: FLUoxetine HCl 10 MG CAPSULE PO SCH (09:02)
[2018-05-21] MEDS: Lisinopril 20 MG TABLET PO SCH (09:03)
[2018-05-21] MEDS: hydrALAZINE 25 MG TABLET PO SCH ×3 (09:03→20:36)
[2018-05-21 09:45] LABS: Bilirubin,Urine Small (Negative); Blood,Urine Negative (Negative); Clarity,Urine Cloudy (Clear); Color,Urine Dark Yellow (Yellow); Glucose,Urine (UA) Normal (Normal); Ketones,Urine 40 mg/dL (Negative); Leukocyte Esterase,Urine Trace (Negative); Nitrite,Urine Negative (Negative); PH,Urine 6.5 pH Units (5.0-8.0); Protein,Urine 100 mg/dL (Neg-Trace); Specific Gravity,Urine 1.024 (1.010-1.025); Urobilinogen,Urine Normal (Normal)
[2018-05-21 09:48] LABS: Bacteria,Urine Many per hpf (None-Few); Hyaline Casts,Urine Few per lpf (None-Few); Squamous Epithelial Cell,Urine Many per lpf (None-Few)
[2018-05-21] MEDS ORDERED: Acetaminophen 325 MG TABLET PO PRN (09:50)
[2018-05-21] MEDS: Insulin LISPRO 300 UNITS/3 ML VIAL SQ SCH ×4 (10:03→20:36)
[2018-05-21 10:04] LABS: RBC,Urine 0-3 per hpf (0-3)
--- NOTE | 2018-05-21 10:18 | Internal Med Progress Note ---
<Soni Walker - Last Filed: 05/21/18 10:13> Hospitalist Progress Note - Encounter Date of Encounter: 05/21/18 Time of Encounter: 10:13 - Subjective Interval History: 83F evaluated at bedside. She was ready to be discharged when she started to have severe back pain radiating down both legs. Patient was severely anxious and stated she is too scare to go home. - Exam Vitals: Temp Pulse Resp BP Pulse Ox 98.3 F 102 16 182/74 93 05/21/18 07:33 05/21/18 07:33 05/21/18 07:33 05/21/18 07:33 05/21/18 07:33 Exam: Gen.: alert and oriented X3, no acute distress. CV: RRR, +2 systolic murmur heard best at the right upper sternal border lungs: mild basilar rails in the right lower lobe all other lung arriaza clear abdomen: soft, nondistended, nontender, bowel sounds present. Extremities: no cyanosis or edema present. - Assessment and Plan (1) Leukocytosis Current Visit: Yes Status: Acute Assessment and Plan: WBC elevated significantly this morning to 37.4. Chest x-ray unremarkable, urinalysis contaminated but shows many bacteria and WBCs present no source of infection found on CT of the chest, abdomen, pelvis. Plan: peripheral Pap smear pending urine culture pending start ciprofloxacin b.i.d., day 1 will consult heme/onc in the am (2) Nausea and vomiting Current Visit: Yes Status: Acute Assessment and Plan: likely secondary to inappropriately taking fosamax. vomiting resolved. Plan: patient educated on how to take this medication correctly. (3) Hypertensive urgency Current Visit: Yes Status: Acute Assessment and Plan: hypertensive urgency-no evidence of end organ damage. Plan: increased home dose of lisinopril to 40mg PO daily continue home hydralazine and metoprolol PRN IV hydralazine (4) Type 2 diabetes mellitus Current Visit: Yes Status: Chronic Assessment and Plan: hold amaryl. Low dose Sliding scale insulin, ACHS accuchecks (5) Lightheadedness Current Visit: Yes Status: Acute Assessment and Plan: resolved (6) DVT prophylaxis Current Visit: Yes Status: Acute Assessment and Plan: Heparin SQ (7) Back pain Current Visit: Yes Status: Resolved Assessment and Plan: Workup unremarkable, continue to monitor - Time Spent with Patient Total time spent is greater than 50% in coordination of care (as documented) at patient's floor/unit and/or counseling patient: Internal Medicine: Result - Labs CBC & Chem 7: 05/21/18 07:56 05/21/18 07:56 Labs: Short CBC 05/21/18 05/21/18 Range/Units 02:23 07:56 WBC 37.4 H* D 33.0 H* (4.3-11.1) K/mcL Hgb 12.7 13.1 (11.5-15.4) g/dL Hct 39.4 40.3 (35.3-44.9) % Plt Count 201 212 (140-400) K/mcL Neutrophils # 29.8 H (1.6-8.9) K/mcL BMP 05/20/18 05/21/18 14:47 07:56 Sodium 134 L 132 L Potassium 3.3 L 4.2 D Chloride 99 99 Carbon Dioxide 24 25 BUN 19 19 Creatinine 0.69 0.67 Glucose 87 147 H Calcium 8.0 L 8.2 L Cardiac Enzymes 05/20/18 05/20/18 05/21/18 Range/Units 14:47 20:28 02:23 Troponin I < 0.03 < 0.03 < 0.03 (< 0.04) ng/mL Liver Function 05/20/18 Range/Units 14:47 Total Bilirubin 0.7 (0.3-1.0) mg/dL AST 50 H (13-39) Units/L ALT 26 (7-52) Units/L Alkaline Phosphatase 81 (34-104) Units/L Albumin 3.5 (3.5-5.7) g/dL Urine 05/21/18 Range/Units 09:30 Urine Color Dark Yellow (Yellow) Urine Clarity Cloudy A (Clear) Urine pH 6.5 (5.0-8.0) pH Units Ur Specific [place] 1.024 (1.010-1.025) Urine Protein 100 H (Neg-Trace) mg/dL Urine Glucose (UA) Normal (Normal) mg/dL - Impressions Impressions Abdomen/Pelvis CTA 05/20/18 00:00 IMPRESSION: 1. No evidence of aortic aneurysm or dissection. 2. No acute abnormality within the chest, abdomen, and pelvis. 3. Gallbladder contains sludge or tiny stones. 4. Colonic diverticulosis without evidence for acute diverticulitis. 5. In the lateral left breast, there is a 1.2 cm oval mass. Recommend correlation with nonemergent mammogram and ultrasound. D/ / Tyrell Sharpe MD / Tyrell Sharpe MD Interpreting Provider: Tyrell Sharpe MD Chest CTA 05/20/18 12:13 IMPRESSION: 1. No evidence of aortic aneurysm or dissection. 2. No acute abnormality within the chest, abdomen, and pelvis. 3. Gallbladder contains sludge or tiny stones. 4. Colonic diverticulosis without evidence for acute diverticulitis. 5. In the lateral left breast, there is a 1.2 cm oval mass. Recommend correlation with nonemergent mammogram and ultrasound. D/ / Tyrell Sharpe MD / Tyrell Sharpe MD Interpreting Provider: Tyrell Sharpe MD Abdomen X-Ray 05/21/18 03:40 IMPRESSION: Indeterminate bowel-gas pattern due to the paucity of small bowel gas. No dilated loops are visualized. No evidence of free air. D/ / Ishaan Bazzi MD / Ishaan Bazzi MD Interpreting Provider: Ishaan Bazzi MD Chest X-Ray 05/21/18 07:40 IMPRESSION: No acute cardiopulmonary disease. D/ / Ishaan Bazzi MD / Ishaan Bazzi MD Interpreting Provider: Ishaan Bazzi MD Consult Discharge Plan - Plan Instructions: Lisinopril (By mouth), Hydralazine (By mouth), Diabetes Mellitus Type 2 in Adults (DC), Chronic Hypertension (DC) Additional Instructions: Follow-up with your primary care provider within one week of discharge. Continue all medications as prescribed. Please note that your dose of lisinopril and hydralazine have been increased, and a new prescriptions have been given to. You may continue taking Fosamax, please take in the morning, on an empty stomach with a full glass of water, at least 60 minutes prior to eating. Please return to the emergency department if symptoms recur. Referrals: Canelo Sorto, [Primary Care Provider] - 05/26/18 11:30 am () <Stormy Wylie - Last Filed: 05/21/18 17:18> Hospitalist Progress Note - Encounter Date of Encounter: 05/21/18 - Exam Vitals: Temp Pulse Resp BP Pulse Ox 98.3 F 88 14 141/73 93 05/21/18 14:46 05/21/18 14:46 05/21/18 14:46 05/21/18 14:46 05/21/18 14:46 - Assessment and Plan (1) Type 2 diabetes mellitus Current Visit: Yes Status: Chronic (2) Hypertensive urgency Current Visit: Yes Status: Acute (3) Nausea and vomiting Current Visit: Yes Status: Acute (4) Lightheadedness Current Visit: Yes Status: Acute (5) Leukocytosis Current Visit: Yes Status: Acute (6) DVT prophylaxis Current Visit: Yes Status: Acute (7) Back pain Current Visit: Yes Status: Resolved - Time Spent with Patient Total time spent is greater than 50% in coordination of care (as documented) at patient's floor/unit and/or counseling patient: Internal Medicine: Result - Labs CBC & Chem 7: 05/21/18 07:56 05/21/18 07:56 - Attending Attestation I examined this patient and my medical decision-making was reviewed with the Resident Physician Dr. Walker . I agree with the documented findings, disposition and treatment plan as described except to the extent set forth below. Ms. Doherty is a 83 year old female with past medical history of diabetes, hyperlipidemia, hypertension, hypothyroidism, valvular heart disease, osteoporosis. Patient arrived to [facility] on 05/18/18 with chief complaint of nausea/ vomiting which started after she took Fosamax. She happened to have uncontrolled hypertension upon arrival to the ER. Patient was admitted in the hospital and had stroke workup everything came back is negative. With symptomatic and supportive care her nausea vomiting improved. She is tolerating PO intake well. Patient was evaluated by PT/OT, who recommended home health upon discharge with therapeutic exercises. Patient was about to leave the hospital, suddenly she complaining about back pain radiating to her and her both legs. CTA of the chest was done which did not show any aortic disection. Her current episode seems to more like anxiety/panic attack. She is A, A, O x 3. Denied any more back pain / leg pain. Still feel light headedness and dizzy. Her B12 came back as low, will start her on B12 supplements Her WBC elevated today.. Did forther work up for infectious source. UA came back abnormal. So started her on empirical abx Cipro.. talked to the family at bed side and explained to them about current care. <Soni Walker - Last Filed: 05/21/18 10:13> (1) Leukocytosis Qualifiers: Leukocytosis type: unspecified Qualified Code(s): D72.829 - Elevated white blood cell count, unspecified (2) Nausea and vomiting Qualifiers: Vomiting type: unspecified Vomiting Intractability: intractable Qualified Code(s): R11.2 - Nausea with vomiting, unspecified (4) Type 2 diabetes mellitus Qualifiers: Diabetes mellitus fci insulin use: without termite technician use Diabetes mellitus complication status: without complication Qualified Code(s): E11.9 - Type 2 diabetes mellitus without complications (7) Back pain Qualifiers: Back pain location: thoracic back pain Chronicity: acute Back pain laterality: midline Qualified Code(s): M54.6 - Pain in thoracic spine <Stormy Wylie - Last Filed: 05/21/18 17:18> (1) Type 2 diabetes mellitus Qualifiers: Diabetes mellitus termite technician insulin use: without termite technician use Diabetes mellitus complication status: without complication Qualified Code(s): E11.9 - Type 2 diabetes mellitus without complications (3) Nausea and vomiting Qualifiers: Vomiting type: unspecified Vomiting Intractability: intractable Qualified Code(s): R11.2 - Nausea with vomiting, unspecified (5) Leukocytosis Qualifiers: Leukocytosis type: unspecified Qualified Code(s): D72.829 - Elevated white blood cell count, unspecified (7) Back pain Qualifiers: Back pain location: thoracic back pain Chronicity: acute Back pain laterality: midline Qualified Code(s): M54.6 - Pain in thoracic spine
[2018-05-21] MEDS ORDERED: Melatonin 3 MG TABLET PO SCH (21:00)
[2018-05-22 03:56] LABS: Basophils # 0.1 K/mcL (0.0-0.2); Basophils % 0.6 %; Eosinophils # 0.1 K/mcL (0.0-0.6); Eosinophils % 0.4 %; Hematocrit 39.2 % (35.3-44.9); Hemoglobin 12.8 g/dL (11.5-15.4); Immature Granulocytes % 2.2 % (0-4); Lymphocytes # 1.7 K/mcL (0.6-4.6); Lymphocytes % 9.6 %; Mean Corpuscular HGB Conc 32.7 g/dL (31.6-35.5); Mean Corpuscular Hemoglobin 26.5 pg (28.0-33.3); Mean Corpuscular Volume 81.2 fL (83.0-100.0); Mean Platelet Volume 10.4 fL (9.4-12.4); Monocytes # 1.8 K/mcL (0.0-1.3); Neutrophils # 13.5 K/mcL (1.6-8.9); Platelet Count 186 K/mcL (140-400); Red Blood Count 4.83 M/mcL (3.82-4.97); Red Cell Distribution Width 14.6 % (11.5-14.5); Segmented Neutrophils % 77.2 %
[2018-05-22] MEDS: *HR* Heparin 5,000 UNIT/ML VIAL SQ SCH (05:15)
[2018-05-22 07:39] VITALS: BP 194/93
[2018-05-22] MEDS: Insulin LISPRO 300 UNITS/3 ML VIAL SQ SCH (08:35)
[2018-05-22] MEDS: Magnesium Oxide 400 MG TABLET PO SCH (09:16)
[2018-05-22] MEDS: FLUoxetine HCl 10 MG CAPSULE PO SCH (09:16)
[2018-05-22] MEDS: hydrALAZINE 25 MG TABLET PO SCH (09:16)
[2018-05-22] MEDS: Cholecalciferol (D-3) 1,000 UNIT TABLET PO SCH (09:16)
[2018-05-22] MEDS: Lisinopril 20 MG TABLET PO SCH (09:16)
[2018-05-22] MEDS: Cyanocobalamin (B-12) 1,000 MCG TABLET PO SCH (09:16)
== END 2018-05-22 11:26 | disposition home or self-care (01) | DRG 305 ==
LOC: 3BNU 18:14 → EMEROOARM 18:14 → 3BNU 23:20
PROVIDERS: ADMIT Internal Medicine; ATTEND Internal Medicine

== ENCOUNTER 2019-06-02 16:19 | Inpatient (IN) ==
--- NOTE | 2019-06-02 17:16 | Emergency Department Note ---
Disposition Clinical Impression: Confusion Fracture of wrist Qualifiers: Encounter type: initial encounter Fracture type: closed Laterality: left Qualified Code(s): S62.102A - Fracture of unspecified carpal bone, left wrist, initial encounter for closed fracture Accidental fall Qualifiers: Encounter type: initial encounter Qualified Code(s): W19.XXXA - Unspecified fall, initial encounter Disposition: Admitted As Inpatient Condition: Good Time of Disposition: 19:33 General Adult HPI - General Chief complaint: ED Fall Stated complaint: Fall Time Seen by Provider: 06/02/19 16:32 Source: patient Limitations: no limitations Nursing Notes Reviewed: Yes Vital Signs Reviewed: Yes - History of Present Illness HPI Narrative: 84 yo woman fell while transferring from bed to bedside commode at home around 0530 today and fell. She said she felt dizzy at the time, but did not lose consciousness or hit her head. Family also thinks she seems confused, which predates this fall and began while she was in a rehab facility 2/2 left ankle fracture in March. She had just returned home yesterday as her insurance could no longer cover the rehab. While at rehab she also had episodes of paranoia, trying to leave because she thought that she was being inappropriately medicated, per family, and that nurse in a wig was trying to drown her. PMH includes asthma, AMS 2/2 UTI. She is not on anticoagulation. Code status is full code. Pain Scale: 0 - Related Data Home Medications Medication Instructions Recorded Confirmed Cinacalcet [Sensipar] 30 mg PO HS 02/17/16 06/02/19 Cyclobenzaprine [Flexeril] 5 mg PO HS 03/30/17 06/02/19 FLUoxetine HCl [Prozac] 10 mg PO DAILY 03/30/17 06/02/19 Meclizine HCl [Verticalm] 25 mg PO BID PRN 04/01/17 06/02/19 Metoprolol [Lopressor] 25 mg PO BID 04/01/17 06/02/19 Ondansetron [Zofran] 8 mg PO Q8H PRN 04/01/17 06/02/19 Potassium Chloride [Klor-Con 10] 10 meq PO TID 04/01/17 06/02/19 Glimepiride [Amaryl] 0.5 mg PO DAILY 05/17/18 06/02/19 Meloxicam [Mobic] 7.5 mg PO DAILY 05/21/18 06/02/19 Pravastatin Sodium [Pravachol] 20 mg PO 06/02/19 06/02/19 Previous Rx's Medication Instructions Recorded Lisinopril [Zestril] 40 mg PO DAILY #30 tablet 05/20/18 hydrALAZINE [HydrALAZINE] 25 mg PO TID #90 tablet 05/20/18 Cyanocobalamin (B-12) [Vitamin B12] 1,000 mcg PO DAILY #30 tablet 05/22/18 Allergies Allergy/AdvReac Type Severity Reaction Status Date / Time aspirin Allergy Hives Verified 11/18/18 16:24 cephalexin [From Keflex] Allergy Hives Verified 11/18/18 16:24 ibuprofen [From Motrin] Allergy Hives Verified 11/18/18 16:24 propoxyphene Allergy Swelling Verified 11/18/18 16:24 [From Darvocet-N] of Lip/Tongue/Throat lorazepam [From Ativan] AdvReac Irritable Verified 11/18/18 16:24 All systems ED: reviewed and negative except as stated. Genitourinary: Reports: dysuria Musculoskeletal: Reports: other (Left arm pain) Integumentary: Reports: abrasion Neurological: Reports: confusion, vertigo Past Medical History - Past Medical History Attestation: Yes The following information was validated with the patient. 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 Pupils equal and reactive. Cardio: Regular rate and rhythm, no murmur, no peripheral edema, good perfusion to all extremities, no cyanosis Resp: Equal breath sounds bilaterally, no wheeze, no cough GI: Abdomen soft, nondistended, nontender to palpation. No ecchymoses, no rash. : No suprapubic tenderness or distention MSK: +ecchymosis and edema on left wrist. Perfusion, sensation intact. Otherwise normal ROM, no joint swelling or erythema. Healing left ankle fx that did not require surgical repair with perfusion and sensation intact on left foot. Neuro: CNI-XII intact, strength and sensation WNL Psych: Appropriate affect - General Limitations: no limitations General appearance: alert Course Course Narrative: VS stable, patient comfortable and denies need for pain relief at this time. Agreeable to imaging although earlier today she declined XR at [facility]. Family states that her confusion is similar to that of earlier UTI episodes. Vital Signs Temperature 97.8 F 06/02/19 16:21 Pulse Rate 90 06/02/19 16:21 Respiratory Rate 18 06/02/19 16:21 Blood Pressure 117/58 06/02/19 16:21 O2 Sat by Pulse Oximetry 94 06/02/19 16:21 Temperature 97.8 F 06/02/19 16:34 Pulse Rate 90 06/02/19 16:34 Respiratory Rate 18 06/02/19 16:34 Blood Pressure 117/58 06/02/19 16:34 O2 Sat by Pulse Oximetry 94 06/02/19 16:34 Oxygen Delivery Oxygen Delivery Room Air Medical Decision Making - MDM Narrative Medical decision making narrative: VS stable. Patient has nondisplaced left scaphoid fracture, other imaging negative. No acute lab findings. Discussed situation with psychotherapist social worker (Lottie) who agreed admission would be appropriate given that patient would not be safe at home at this time given the fall history. - Medical Records Medical records reviewed: Yes I reviewed the patient's medical records. - Lab Data Lab results reviewed: Yes I reviewed the patient's lab results. Result diagrams: 06/02/19 17:35 06/02/19 17:35 Lab Results 06/02/19 06/02/19 06/02/19 Range/Units 17:25 17:35 17:35 WBC 9.3 (4.3-11.1) K/mcL RBC 4.52 (3.82-4.97) M/mcL Hgb 11.7 (11.5-15.4) g/dL Hct 37.0 (35.3-44.9) % MCV 81.9 L (83.0-100.0) fL MCH 25.9 L (28.0-33.3) pg MCHC 31.6 (31.6-35.5) g/dL RDW 15.3 H (11.5-14.5) % Plt Count 298 (140-400) K/mcL MPV 10.0 (9.4-12.4) fL Immature Gran % 0.3 (0-4) % Seg Neutrophils % 57.0 % Lymphocytes % 31.0 % Monocytes % 9.7 % Eosinophils % 1.5 % Basophils % 0.5 % Neutrophils # 5.3 (1.6-8.9) K/mcL Lymphocytes # 2.9 (0.6-4.6) K/mcL Monocytes # 0.9 (0.0-1.3) K/mcL Eosinophils # 0.1 (0.0-0.6) K/mcL Basophils # 0.1 (0.0-0.2) K/mcL PT 12.1 (9.4-12.1) Seconds INR 1.1 APTT 33.8 (26.0-36.0) Seconds Sodium (136-145) mEq/L Potassium (3.5-5.1) mEq/L Chloride (98-107) mEq/L Carbon Dioxide (23-29) mEq/L BUN (8-23) mg/dL Creatinine (0.60-1.20) mg/dL Est GFR ( Amer) (> 60) Est GFR (Non-Af Amer) (> 60) BUN/Creatinine Ratio (6-26) Glucose (70-105) mg/dL Calculated Osmolality (280-300) Calcium (8.6-10.3) mg/dL Total Bilirubin (0.3-1.0) mg/dL Direct Bilirubin (0.0-0.2) mg/dL Indirect Bilirubin (0.0-1.2) mg/dL AST (13-39) Units/L ALT (7-52) Units/L Alkaline Phosphatase (34-104) Units/L Ammonia (16-53) mcmol/L Troponin I (< 0.04) ng/mL Serum Total Protein (6.4-8.9) g/dL Albumin (3.5-5.7) g/dL Globulin (2.4-3.5) g/dL Albumin/Globulin Ratio (1.1-2.2) TSH (0.340-5.600) mcIU/mL Urine Color Yellow (Yellow) Urine Clarity Clear (Clear) Urine pH 7.0 (5.0-8.0) pH Units Ur Specific [place] 1.021 (1.010-1.025) Urine Protein Negative (Neg-Trace) mg/dL Urine Glucose (UA) Normal (Normal) mg/dL Urine Ketones Negative (Negative) mg/dL Urine Blood Negative (Negative) Urine Nitrite Negative (Negative) Urine Bilirubin Negative (Negative) Urine Urobilinogen 2.0 H (Normal) mg/dL Ur Leukocyte Esterase Moderate H (Negative) Urine Microscopic WBC 15-30 H (0-3) per hpf Urine Yeast Few H (None Seen) per hpf Ur Culture Indicated? YES A (NO) 06/02/19 06/02/19 Range/Units 17:35 17:35 WBC (4.3-11.1) K/mcL RBC (3.82-4.97) M/mcL Hgb (11.5-15.4) g/dL Hct (35.3-44.9) % MCV (83.0-100.0) fL MCH (28.0-33.3) pg MCHC (31.6-35.5) g/dL RDW (11.5-14.5) % Plt Count (140-400) K/mcL MPV (9.4-12.4) fL Immature Gran % (0-4) % Seg Neutrophils % % Lymphocytes % % Monocytes % % Eosinophils % % Basophils % % Neutrophils # (1.6-8.9) K/mcL Lymphocytes # (0.6-4.6) K/mcL Monocytes # (0.0-1.3) K/mcL Eosinophils # (0.0-0.6) K/mcL Basophils # (0.0-0.2) K/mcL PT (9.4-12.1) Seconds INR APTT (26.0-36.0) Seconds Sodium 137 (136-145) mEq/L Potassium 4.1 (3.5-5.1) mEq/L Chloride 99 (98-107) mEq/L Carbon Dioxide 31 H (23-29) mEq/L BUN 21 (8-23) mg/dL Creatinine 1.01 (0.60-1.20) mg/dL Est GFR ( Amer) > 60 (> 60) Est GFR (Non-Af Amer) 52 L (> 60) BUN/Creatinine Ratio 21 (6-26) Glucose 126 H (70-105) mg/dL Calculated Osmolality 289 (280-300) Calcium 11.1 H (8.6-10.3) mg/dL Total Bilirubin 0.5 (0.3-1.0) mg/dL Direct Bilirubin 0.1 (0.0-0.2) mg/dL Indirect Bilirubin 0.4 (0.0-1.2) mg/dL AST 15 (13-39) Units/L ALT 13 (7-52) Units/L Alkaline Phosphatase 61 (34-104) Units/L Ammonia 42 (16-53) mcmol/L Troponin I < 0.03 (< 0.04) ng/mL Serum Total Protein 6.3 L (6.4-8.9) g/dL Albumin 3.4 L (3.5-5.7) g/dL Globulin 2.9 (2.4-3.5) g/dL Albumin/Globulin Ratio 1.2 (1.1-2.2) TSH 1.256 (0.340-5.600) mcIU/mL Urine Color (Yellow) Urine Clarity (Clear) Urine pH (5.0-8.0) pH Units Ur Specific [place] (1.010-1.025) Urine Protein (Neg-Trace) mg/dL Urine Glucose (UA) (Normal) mg/dL Urine Ketones (Negative) mg/dL Urine Blood (Negative) Urine Nitrite (Negative) Urine Bilirubin (Negative) Urine Urobilinogen (Normal) mg/dL Ur Leukocyte Esterase (Negative) Urine Microscopic WBC (0-3) per hpf Urine Yeast (None Seen) per hpf Ur Culture Indicated? (NO) - Radiology Data Radiology results reviewed: Yes I reviewed the patient's radiology results. Chest X-Ray 06/02/19 17:36 IMPRESSION: No acute cardiopulmonary findings. D/ / Shantal Guillen MD / Shantal Guillen MD Interpreting Provider: Shantal Guillen MD Pelvis X-Ray 06/02/19 17:37 IMPRESSION: No acute osseous abnormality. Given the degree of osteopenia, nondisplaced fractures may be radiographically occult. If pain or concern for fracture persists, consider MR imaging. D/ / Shantal Guillen MD / Shantal Guillen MD Interpreting Provider: Shantal Guillen MD Wrist X-Ray 06/02/19 17:38 IMPRESSION: Subtle lucency seen in the distal pole of the scaphoid seen only on the oblique view suspicious for nondisplaced fracture and can be correlated with focal area of pain. D/ / 06/02/2019 17:41:17 Shantal Guillen MD / ervin Interpreting Provider: Shantal Guillen MD - EKG Data EKG #1 EKG attestation: Yes I reviewed and interpreted this EKG. EKG shows normal: sinus rhythm Rate: normal Rhythm: NSR, PAC's When compared to previous EKG there are: changes noted (05/17/18) Interpretation: no acute changes Attestation Statement - Attestation Attestation: I, Jerry Navarrete, examined this patient and my medical decision-making was reviewed with the ROLLER REPAIRER/PA/Advanced Practice Nurse/Resident Physician. I agree with the documented findings, disposition and treatment plan as described except to the extent set forth below. 84 show female presents emergency Department with for evaluation after a fall. Patient was just discharged from a rehabilitation facility yesterday, this morning she tried to use the commode, fell as she tried to pivot. Patient was confused prior to discharge from the facility per the family. They do not feel like she is safe to be at home secondary to her unsteadiness and her confusion. Patient was evaluated by her home health nurse and was counseled to come to the emergency department for further evaluation as they felt that she was unsafe to be at home. Patient did not have significant abnormality in her laboratory results however she has mild increase in her white blood cells. Family states that her urine has a foul order and has she had a history of urinary tract infections with confusion in the past. Patient will be admitted to the hospitalist for further care and evaluation. X-ray shows a possible scaphoid fracture. Ortho was updated regarding the patient's case and presentation. Patient was comfortable with the plan for admission.
[2019-06-02 17:48] LABS: Basophils # 0.1 K/mcL (0.0-0.2); Basophils % 0.5 %; Eosinophils # 0.1 K/mcL (0.0-0.6); Eosinophils % 1.5 %; Hemoglobin 11.7 g/dL (11.5-15.4); Immature Granulocytes % 0.3 % (0-4); Lymphocytes # 2.9 K/mcL (0.6-4.6); Mean Corpuscular HGB Conc 31.6 g/dL (31.6-35.5); Mean Corpuscular Hemoglobin 25.9 pg (28.0-33.3); Mean Corpuscular Volume 81.9 fL (83.0-100.0); Monocytes # 0.9 K/mcL (0.0-1.3); Monocytes % 9.7 %; Neutrophils # 5.3 K/mcL (1.6-8.9); Platelet Count 298 K/mcL (140-400); Red Blood Count 4.52 M/mcL (3.82-4.97); Red Cell Distribution Width 15.3 % (11.5-14.5); White Blood Count 9.3 K/mcL (4.3-11.1)
[2019-06-02 17:50] LABS: INR 1.1; Prothrombin Time 12.1 Seconds (9.4-12.1)
[2019-06-02 17:53] LABS: Activated Partial Thrombo Time 33.8 Seconds (26.0-36.0)
[2019-06-02 18:07] LABS: Alanine Aminotransferase 13 Units/L (7-52); Albumin 3.4 g/dL (3.5-5.7); Albumin/Globulin Ratio 1.2 (1.1-2.2); Alkaline Phosphatase 61 Units/L (34-104); Aspartate Amino Transferase 15 Units/L (13-39); BUN/Creatinine Ratio 21 (6-26); Bilirubin,Direct 0.1 mg/dL (0.0-0.2); Bilirubin,Indirect 0.4 mg/dL (0.0-1.2); Bilirubin,Total 0.5 mg/dL (0.3-1.0); Blood Urea Nitrogen 21 mg/dL (8-23); Calcium 11.1 mg/dL (8.6-10.3); Carbon Dioxide 31 mEq/L (23-29); Chloride 99 mEq/L (98-107); Globulin 2.9 g/dL (2.4-3.5); Glucose 126 mg/dL (70-105); Osmolality,Calculated 289 (280-300); Potassium 4.1 mEq/L (3.5-5.1); Sodium 137 mEq/L (136-145); Total Protein 6.3 g/dL (6.4-8.9); Troponin I < 0.03 ng/mL (< 0.04); eGFR For African Americans > 60 (> 60); eGFR For Non-African Americans 52 (> 60)
[2019-06-02 18:15] LABS: Clarity,Urine Clear (Clear); Color,Urine Yellow (Yellow)
[2019-06-02 18:16] LABS: Bilirubin,Urine Negative (Negative); Blood,Urine Negative (Negative); Glucose,Urine (UA) Normal (Normal); Ketones,Urine Negative (Negative); Leukocyte Esterase,Urine Moderate (Negative); Nitrite,Urine Negative (Negative); Protein,Urine Negative (Neg-Trace); Specific Gravity,Urine 1.021 (1.010-1.025)
[2019-06-02 18:21] LABS: Thyroid Stimulating Hormone 1.256 mcIU/mL (0.340-5.600)
[2019-06-02 18:28] LABS: WBC,Urine 15-30 per hpf (0-3)
[2019-06-02 18:29] LABS: Yeast,Urine Few per hpf (None Seen)
[2019-06-03] MEDS ORDERED: Naloxone 0.4 MG/ML INJ IVP PRN (05:29)
--- NOTE | 2019-06-03 06:04 | Internal Med History&Physical ---
Date of Encounter: 06/03/19 Time of Encounter: 05:00 Internal Medicine - H&P: HPI Chief complaint: Fall Admitted From: Home Plans for Post Hospital Care: Home History of present illness: Ms. Doherty is a 84 year old female with past medical history significant for hypertension, hyperlipidemia, valvular heart disease with murmur, diabetes, thyroid disease, asthma, and anxiety who presents following mechanical fall at home yesterday morning. Reports she slid on her hardwood floors at home and subsequently had a mechanical fall striking her left arm. Denies striking her head, losing consciousness, or anticoagulation use. Reported to ER she felt dizzy but denied this to me. Patient reports she did have some pain in her left wrist but does not at this time and also denies any other injury from her fall. Does report over the last 2 days she has had some dysuria and foul-smelling urine. Patient was just discharged 2 days ago from inpatient rehabilitation following a fall with left ankle fracture in March 2019. Patient was seen at [facility] yesterday morning where she refused any testing and was discharged home. While at [place] family expressed interest in patient going into assisted living and further workup, however patient was oriented and refused any further evaluation. Patient returned to [facility] with her family last evening as her family felt she was unsafe at home alone due to her falling and also stating she does not seem to be at her baseline mentation since her fall in March. ER completed an x-ray of the chest which showed no acute cardiopulmonary findings, pelvis which showed no acute osseous abnormality but given the degree of osteopenia nondisplaced fractures may be radiographically occult and recommended MR imaging if pain or concern for fracture persist, and left wrist which showed subtle lucency seen in the distal pole of the scaphoid seen only on the oblique view suspicious for nondisplaced fracture and can be correlated with focal area of pain. ER also obtained a CT of the head and cervical spine which showed a stable exam with no acute intracranial abnormality, multilevel mild to moderate degenerative change of the cervical spine, and atherosclerotic disease. ER reported EKG as sinus rhythm with no acute changes. ER discussed with on-call orthopedic surgery who had no further recommendations and agreed to see patient in a.m. Currently she denies any headache, numbness, tingling, chest pain, shortness of breath, cough, abdominal pain, or bowel changes. Reports that she is interested in going to rehabilitation at [place]. Reports that she lives alone and prior to her fall in March she was working full-time at [employer]. Past Med Surg Social Fam HX - Past Medical History Medical history: asthma, diabetes, hyperlipidemia, hypertension, thyroid disease Additional medical history: valvular heart disease Psychiatric history: anxiety, bipolar - Past Surgical History Surgical History: non-contributory - Social History Smoking Status: Never smoker Smokeless Tobacco Status: No Alcohol use: none Drug use: none - Family History Brother Hx Family Cardiac Disorders: Yes Hx Family Respiratory Disorders: No Hx Family Cancer: No Hx Family GI Disorders: No Hx Family Endocrine Disorder: No Hx Family Neuromuscular Disorders: No Hx Family Neurologic Disorders: No Hx Family HEENT Disorders: No Hx Family Autoimmune Disorders: No Internal Medicine - H&P: Meds Cinacalcet [Sensipar] 30 mg PO HS 02/17/16 [History] Cyclobenzaprine [Flexeril] 5 mg PO HS 03/30/17 [History] FLUoxetine HCl [Prozac] 10 mg PO DAILY 03/30/17 [History] Meclizine HCl [Verticalm] 25 mg PO BID PRN 04/01/17 [History] Metoprolol [Lopressor] 25 mg PO BID 04/01/17 [History] Ondansetron [Zofran] 8 mg PO Q8H PRN 04/01/17 [History] Potassium Chloride [Klor-Con 10] 10 meq PO TID 04/01/17 [History] Glimepiride [Amaryl] 0.5 mg PO DAILY 05/17/18 [History] Lisinopril [Zestril] 40 mg PO DAILY #30 tablet 05/20/18 [Rx] hydrALAZINE [HydrALAZINE] 25 mg PO TID #90 tablet 05/20/18 [Rx] Meloxicam [Mobic] 7.5 mg PO DAILY 05/21/18 [History] Cyanocobalamin (B-12) [Vitamin B12] 1,000 mcg PO DAILY #30 tablet 05/22/18 [Rx] Pravastatin Sodium [Pravachol] 20 mg PO 06/02/19 [History] Allergy/AdvReac Type Severity Reaction Status Date / Time aspirin Allergy Hives Verified 11/18/18 16:24 cephalexin [From Keflex] Allergy Hives Verified 11/18/18 16:24 ibuprofen [From Motrin] Allergy Hives Verified 11/18/18 16:24 propoxyphene Allergy Swelling Verified 11/18/18 16:24 [From Darvocet-N] of Lip/Tongue/Throat lorazepam [From Ativan] AdvReac Irritable Verified 11/18/18 16:24 All Systems PM: A 10-system review of systems was performed and is negative for pertinent findings except as documented above in the HPI. - Constitutional Vitals: Temp Pulse Resp BP Pulse Ox 99.1 F 70 18 107/62 96 06/03/19 04:51 06/03/19 04:51 06/03/19 04:51 06/03/19 04:51 06/03/19 04:51 Exam: General: Fully alert and oriented. Skin:Normal color, no rash, no lesions. Echymosis noted to left upper extremity. HEENT:EOM, pupils equal, round and reactive. Cardiovascular:Chronic murmur noted. No JVD. Pulse regular. Lungs:Normal breath sounds, no wheezes or crackles. Abdomen:Soft, non-tender, no rigidity. Extremities:No deformity, no edema or tenderness, no joint swelling or clubbing. Left ankle wrapped. Neurological:Normal cognition and motor skills. Pulses:Carotid and radial pulses normal +2. Rest of the physical exam is non contributory. Internal Med - H&P Results - Labs CBC & Chem 7: 06/02/19 17:35 06/02/19 17:35 Labs: Short CBC 06/02/19 Range/Units 17:35 WBC 9.3 (4.3-11.1) K/mcL Hgb 11.7 (11.5-15.4) g/dL Hct 37.0 (35.3-44.9) % Plt Count 298 (140-400) K/mcL Neutrophils # 5.3 (1.6-8.9) K/mcL BMP 06/02/19 17:35 Sodium 137 Potassium 4.1 Chloride 99 Carbon Dioxide 31 H BUN 21 Creatinine 1.01 Glucose 126 H Calcium 11.1 H Cardiac Enzymes 06/02/19 Range/Units 17:35 Troponin I < 0.03 (< 0.04) ng/mL Liver Function 06/02/19 Range/Units 17:35 Total Bilirubin 0.5 (0.3-1.0) mg/dL Direct Bilirubin 0.1 (0.0-0.2) mg/dL AST 15 (13-39) Units/L ALT 13 (7-52) Units/L Alkaline Phosphatase 61 (34-104) Units/L Albumin 3.4 L (3.5-5.7) g/dL Urine 06/02/19 Range/Units 17:25 Urine Color Yellow (Yellow) Urine Clarity Clear (Clear) Urine pH 7.0 (5.0-8.0) pH Units Ur Specific [place] 1.021 (1.010-1.025) Urine Protein Negative (Neg-Trace) mg/dL Urine Glucose (UA) Normal (Normal) mg/dL - Impressions ITS Impressions Chest X-Ray 06/02/19 17:36 IMPRESSION: No acute cardiopulmonary findings. D/ / Shantal Guillen MD / Shantal Guillen MD Interpreting Provider: Shantal Guillen MD Pelvis X-Ray 06/02/19 17:37 IMPRESSION: No acute osseous abnormality. Given the degree of osteopenia, nondisplaced fractures may be radiographically occult. If pain or concern for fracture persists, consider MR imaging. D/ / Shantal Guillen MD / Shantal Guillen MD Interpreting Provider: Shantal Guillen MD Wrist X-Ray 06/02/19 17:38 IMPRESSION: Subtle lucency seen in the distal pole of the scaphoid seen only on the oblique view suspicious for nondisplaced fracture and can be correlated with focal area of pain. D/ / 06/02/2019 17:41:17 Shantal Guillen MD / ervin Interpreting Provider: Shantal Guillen MD Head CT 06/02/19 18:26 IMPRESSION: Stable exam. No acute intracranial abnormality. D/ /02/2019 18:36:04 Shantal Guillen MD / bcarter Interpreting Provider: Shantal Guillen MD Cervical Spine CT 06/02/19 18:29 IMPRESSION: No acute abnormality of the cervical spine. Multilevel [id number] degenerative change of the cervical spine. Atherosclerotic disease. D/ / Can Story MD / Can Story MD Interpreting Provider: Can Story MD - Assessment and Plan (1) Fall Current Visit: Yes Status: Acute Assessment and plan: Presents for mechanical fall from sliding on hardwood floors and falling striking left arm. Denies striking head, losing consciousness, or anticoagulation use. Reported pain to left wrist since resolved. Was seen for same at [facility] yesterday morning but refused any evaluation at that time. ER completed an x-ray of the chest which showed no acute cardiopulmonary findings, pelvis which showed no acute osseous abnormality but given the degree of osteopenia nondisplaced fractures may be radiographically occult and recommended MR imaging if pain or concern for fracture persist, and left wrist which showed subtle lucency seen in the distal pole of the scaphoid seen only on the oblique view suspicious for nondisplaced fracture and can be correlated with focal area of pain. ER also obtained a CT of the head and cervical spine which showed a stable exam with no acute intracranial abnormality, multilevel mild to moderate degenerative change of the cervical spine, and atherosclerotic disease. ER discussed with on-call orthopedic surgery who had no current further recommendations and agreed to see patient in a.m., consult ordered placed. Fall precautions ordered. Physical therapy consult ordered. manager support services consult ordered. Qualifiers: Encounter type: initial encounter Qualified Code(s): W19.XXXA - Unspecified fall, initial encounter (2) Scaphoid fracture Current Visit: Yes Status: Acute Assessment and plan: Plan as stated above. Currently denies any pain. Qualifiers: Encounter type: initial encounter Scaphoid bone location: distal pole Fracture type: closed Fracture alignment: nondisplaced Laterality: left Qualified Code(s): S62.015A - Nondisplaced fracture of distal pole of navicular [scaphoid] bone of left wrist, initial encounter for closed fracture (3) Urinary tract infection Current Visit: Yes Status: Acute Assessment and plan: UA obtained in ER showed abnormal urinalysis. Urine culture pending. Patient reports dysuria and foul-smelling urine for past 2 days. ER started patient on ciprofloxacin which previous urine cultures show sensitivity to, will continue same. Qualifiers: Qualified Code(s): N39.0 - Urinary tract infection, site not specified (4) Calcium increased serum Current Visit: Yes Status: Acute Assessment and plan: Elevated at 11.1 Continue home medications. Repeat labs ordered. (5) Decreased GFR Current Visit: Yes Status: Acute Assessment and plan: GFR decreased at 52. BUN/creatinine within normal limits. Repeat labs ordered. Avoid nephrotoxins as able. (6) Diabetes mellitus Current Visit: Yes Status: Chronic Assessment and plan: Hold home diabetic medications. Sliding scale insulin ordered. Accu-Chek's ordered. Qualifiers: Diabetes mellitus type: type 2 Qualified Code(s): E11.9 - Type 2 diabetes mellitus without complications (7) Hypertension Current Visit: Yes Status: Chronic Assessment and plan: Continue home medications once verified. Qualifiers: Hypertension type: unspecified Qualified Code(s): I10 - Essential (primary) hypertension (8) Thyroid disease Current Visit: Yes Status: Chronic Assessment and plan: Continue home medications once verified. - Time Spent With Patient Total time spent is greater than 50% in coordination of care (as documented) at patient's floor/unit and/or counseling patient:
[2019-06-03 06:14] LABS: Basophils # 0.1 K/mcL (0.0-0.2); Basophils % 0.6 %; Eosinophils # 0.2 K/mcL (0.0-0.6); Eosinophils % 2.1 %; Hematocrit 35.3 % (35.3-44.9); Hemoglobin 11.1 g/dL (11.5-15.4); Immature Granulocytes % 0.4 % (0-4); Lymphocytes # 2.4 K/mcL (0.6-4.6); Lymphocytes % 30.1 %; Mean Corpuscular HGB Conc 31.4 g/dL (31.6-35.5); Mean Corpuscular Hemoglobin 25.9 pg (28.0-33.3); Mean Corpuscular Volume 82.5 fL (83.0-100.0); Mean Platelet Volume 9.8 fL (9.4-12.4); Monocytes # 0.8 K/mcL (0.0-1.3); Monocytes % 9.6 %; Neutrophils # 4.6 K/mcL (1.6-8.9); Platelet Count 252 K/mcL (140-400); Red Blood Count 4.28 M/mcL (3.82-4.97); Red Cell Distribution Width 15.4 % (11.5-14.5); Segmented Neutrophils % 57.2 %
[2019-06-03 06:34] LABS: Alanine Aminotransferase 11 Units/L (7-52); Albumin 3.1 g/dL (3.5-5.7); Albumin/Globulin Ratio 1.2 (1.1-2.2); Alkaline Phosphatase 61 Units/L (34-104); Aspartate Amino Transferase 14 Units/L (13-39); BUN/Creatinine Ratio 23 (6-26); Bilirubin,Total 0.6 mg/dL (0.3-1.0); Blood Urea Nitrogen 19 mg/dL (8-23); Calcium 10.7 mg/dL (8.6-10.3); Carbon Dioxide 31 mEq/L (23-29); Chloride 100 mEq/L (98-107); Globulin 2.6 g/dL (2.4-3.5); Glucose 107 mg/dL (70-105); Osmolality,Calculated 287 (280-300); Potassium 3.4 mEq/L (3.5-5.1); Sodium 137 mEq/L (136-145); Total Protein 5.7 g/dL (6.4-8.9); eGFR For African Americans > 60 (> 60); eGFR For Non-African Americans > 60 (> 60)
[2019-06-03] MEDS ORDERED: Dextrose Gel 15 GM/37.5 ML TUBE PO PRN ×2 (08:03)
[2019-06-03] MEDS ORDERED: *HR* Dextrose 50 % in Water (Syg) 50 ML SYRINGE IVP PRN (08:03)
[2019-06-03] MEDS ORDERED: D5% in Water 1,000 ML IVC PRN (08:03)
[2019-06-03] MEDS: Insulin LISPRO 300 UNITS/3 ML VIAL SQ SCH ×2 (12:10→16:49)
--- NOTE | 2019-06-03 12:26 | Orthopedic Consult Note ---
Date of Encounter: 06/03/19 Time of Encounter: 12:21 History of Present Illness Chief complaint: None currently HPI: Ms. Doherty is a 84 year old [id number] female who reportedly had a fall. The patient apparently had some left wrist pain initially but denied any additional complaints after very short period of time. Patient was seen in the emergency room where x-rays suggested a possible scaphoid fracture. Currently she has no wrist pain. Denies any previous episodes of wrist pain prior to this fall. Denies neurovascular complaints. I reviewed the patient's completed history and physical as well as her medical record. Pertinent orthopedic examination reveals a very pleasant 84-year-old woman in no acute distress while lying in the hospital bed. Examination of the left wrist reveals unrestricted range of motion. No evidence of localized edema. No evidence of tenderness. Patient does have some crepitance at the basal joint of the thumb. Generalized arthritic changes are seen in the fingers. No snuffbox tenderness. Neurovascular exam is intact. I reviewed x-rays of the left wrist. These reveal marked triscaphe the arthritis. Basal joint arthritis also identified. There is marked spurring along the radial scaphoid articulation distally with a spur at the distal pole of the radius. No evidence of acute fractures are identified. 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 No evidence of acute fractures Recommendation: No need to splint or protective the left wrist. Would allow the patient to utilize left wrist and hand as tolerated. Patient reports she is 3 covering from an ankle fracture. She can ambulate utilizing the wrist as her weightbearing status dictates per her attending physician managing her ankle fracture. Thank you for allowing me to see care for Mrs. Doherty. Sincerely, Jose Prado,DO Past Med Surg Social Fam HX - Past Medical History Medical history: asthma, diabetes, hyperlipidemia, hypertension, thyroid disease Additional medical history: valvular heart disease Psychiatric history: anxiety, bipolar - Past Surgical History Surgical History: non-contributory - Social History Smoking Status: Never smoker Smokeless Tobacco Status: No Alcohol use: none Drug use: none - Family History Brother Hx Family Cardiac Disorders: Yes Hx Family Respiratory Disorders: No Hx Family Cancer: No Hx Family GI Disorders: No Hx Family Endocrine Disorder: No Hx Family Neuromuscular Disorders: No Hx Family Neurologic Disorders: No Hx Family HEENT Disorders: No Hx Family Autoimmune Disorders: No Medications and Allergies Cinacalcet [Sensipar] 30 mg PO HS 02/17/16 [History] Cyclobenzaprine [Flexeril] 5 mg PO HS 03/30/17 [History] FLUoxetine HCl [Prozac] 10 mg PO DAILY 03/30/17 [History] Meclizine HCl [Verticalm] 25 mg PO BID PRN 04/01/17 [History] Metoprolol [Lopressor] 25 mg PO BID 04/01/17 [History] Ondansetron [Zofran] 8 mg PO Q8H PRN 04/01/17 [History] Potassium Chloride [Klor-Con 10] 10 meq PO TID 04/01/17 [History] Glimepiride [Amaryl] 0.5 mg PO DAILY 05/17/18 [History] Lisinopril [Zestril] 40 mg PO DAILY #30 tablet 05/20/18 [Rx] hydrALAZINE [HydrALAZINE] 25 mg PO TID #90 tablet 05/20/18 [Rx] Meloxicam [Mobic] 7.5 mg PO DAILY 05/21/18 [History] Cyanocobalamin (B-12) [Vitamin B12] 1,000 mcg PO DAILY #30 tablet 05/22/18 [Rx] Pravastatin Sodium [Pravachol] 20 mg PO 06/02/19 [History] Allergy/AdvReac Type Severity Reaction Status Date / Time aspirin Allergy Hives Verified 11/18/18 16:24 cephalexin [From Keflex] Allergy Hives Verified 11/18/18 16:24 ibuprofen [From Motrin] Allergy Hives Verified 11/18/18 16:24 propoxyphene Allergy Swelling Verified 11/18/18 16:24 [From Darvocet-N] of Lip/Tongue/Throat lorazepam [From Ativan] AdvReac Irritable Verified 11/18/18 16:24 All Systems Reviewed: The remainder of the systems were reviewed and are negative Physical Exam - Constitutional Vitals: Temp Pulse Resp BP Pulse Ox 98.0 F 92 16 167/80 93 06/03/19 11:40 06/03/19 11:40 06/03/19 11:40 06/03/19 11:40 06/03/19 11:40 Results - Labs Result Diagrams: 06/03/19 06:02 06/03/19 06:02 Labs: Abnormal lab results Hgb 11.1 g/dL (11.5-15.4) L 06/03/19 06:02 MCV 82.5 fL (83.0-100.0) L 06/03/19 06:02 MCH 25.9 pg (28.0-33.3) L 06/03/19 06:02 MCHC 31.4 g/dL (31.6-35.5) L 06/03/19 06:02 RDW 15.4 % (11.5-14.5) H 06/03/19 06:02 Potassium 3.4 mEq/L (3.5-5.1) L 06/03/19 06:02 Carbon Dioxide 31 mEq/L (23-29) H 06/03/19 06:02 Est GFR (Non-Af Amer) 52 (> 60) L 06/02/19 17:35 Glucose 107 mg/dL (70-105) H 06/03/19 06:02 Calcium 10.7 mg/dL (8.6-10.3) H 06/03/19 06:02 Serum Total Protein 5.7 g/dL (6.4-8.9) L 06/03/19 06:02 Albumin 3.1 g/dL (3.5-5.7) L 06/03/19 06:02 Urine Urobilinogen 2.0 mg/dL (Normal) H 06/02/19 17:25 Ur Leukocyte Esterase Moderate (Negative) H 06/02/19 17:25 Urine Microscopic WBC 15-30 per hpf (0-3) H 06/02/19 17:25 Urine Yeast Few per hpf (None Seen) H 06/02/19 17:25 Ur Culture Indicated? YES (NO) A 06/02/19 17:25 H & H 06/02/19 06/03/19 Range/Units 17:35 06:02 Hgb 11.7 11.1 L (11.5-15.4) g/dL Hct 37.0 35.3 (35.3-44.9) % All other labs normal. - Diagnostic results Wrist/Hand x-ray: image reviewed Consult Discharge Plan - Plan Referrals: Canelo Sorto DO [Primary Care Provider] -
--- NOTE | 2019-06-03 13:17 | Event Note ---
Date of Encounter: 06/03/19 Time of Encounter: 09:00 84-year-old female with history of type II DM, hypothyroidism, multiple falls who came into the hospital due to full. Left wrist trauma: Was read as fracture on X ray, orthopedic evaluated the patient. Doesn't look fracture and no splint is recommended Recent left ankle fracture: Discharged from rehab on Tuesday, not comfortable walking with he boot so she fell yesterday. Consult PT/OT UTI: HDS, afebrile. UCx is pending. Switch cipro to Rocephine, will monitor for allergy. HTN: continue home medications. DVT ppx: heparin sc
[2019-06-03] MEDS: hydrALAZINE 25 MG TABLET PO SCH ×2 (15:50→20:20)
[2019-06-03] MEDS ORDERED: Fluticasone Propionate Nasal 50 MCG/SPRAY BOTTLE NS PRN (16:39)
[2019-06-03] MEDS ORDERED: Ipratropium/Albuterol Neb 3 ML IH SCH ×2 (18:00→22:00)
[2019-06-03] MEDS: *HR* Heparin 5,000 UNIT/ML VIAL SQ SCH (18:31)
[2019-06-04] MEDS ORDERED: Ipratropium/Albuterol Neb 3 ML IH PRN (03:58)
[2019-06-04] MEDS: *HR* Heparin 5,000 UNIT/ML VIAL SQ SCH ×2 (06:02→18:37)
[2019-06-04] MEDS: Insulin LISPRO 300 UNITS/3 ML VIAL SQ SCH ×3 (07:22→16:59)
[2019-06-04 07:23] LABS: BUN/Creatinine Ratio 18 (6-26); Blood Urea Nitrogen 17 mg/dL (8-23); Calcium 10.6 mg/dL (8.6-10.3); Carbon Dioxide 30 mEq/L (23-29); Chloride 100 mEq/L (98-107); Glucose 117 mg/dL (70-105); Magnesium 1.6 mg/dL (1.6-2.6); Osmolality,Calculated 281 (280-300); Potassium 3.6 mEq/L (3.5-5.1); Sodium 134 mEq/L (136-145); eGFR For African Americans > 60 (> 60); eGFR For Non-African Americans 57 (> 60)
[2019-06-04 07:25] LABS: Hematocrit 35.8 % (35.3-44.9); Hemoglobin 11.3 g/dL (11.5-15.4); Mean Corpuscular HGB Conc 31.6 g/dL (31.6-35.5); Mean Corpuscular Hemoglobin 25.5 pg (28.0-33.3); Mean Corpuscular Volume 80.6 fL (83.0-100.0); Mean Platelet Volume 10.2 fL (9.4-12.4); Platelet Count 277 K/mcL (140-400); Red Blood Count 4.44 M/mcL (3.82-4.97); Red Cell Distribution Width 15.2 % (11.5-14.5); White Blood Count 7.4 K/mcL (4.3-11.1)
[2019-06-04] MEDS: cefTRIAXone 1,000 MG in Water for inj. (sterile) 10 ML IVP SCH (08:38)
[2019-06-04] MEDS: Lisinopril 20 MG TABLET PO SCH (08:39)
[2019-06-04] MEDS: FLUoxetine 20 MG CAPSULE PO SCH (08:39)
[2019-06-04] MEDS: hydroCHLOROthiazide 25 MG TABLET PO SCH (08:39)
[2019-06-04] MEDS: hydrALAZINE 25 MG TABLET PO SCH ×3 (08:39→22:24)
[2019-06-04] MEDS: Cyanocobalamin (B-12) 1,000 MCG TABLET PO SCH (08:40)
[2019-06-04] MEDS ORDERED: FLUoxetine HCl 10 MG CAPSULE PO SCH (09:00)
--- NOTE | 2019-06-04 12:52 | Internal Med Progress Note ---
Hospitalist Progress Note - Encounter Date of Encounter: 06/04/19 Time of Encounter: 09:15 - Subjective Interval History: No major events overnight. Patient was seen this a.m. s He denied fever, chills or night sweats. sHe has no nausea, vomiting or abdominal pain. Patient denied chest pain, shortness of breath or palpitation. - Exam Vitals: Temp Pulse Resp BP Pulse Ox 98.1 F 89 17 124/71 95 06/04/19 10:55 06/04/19 10:55 06/04/19 10:55 06/04/19 10:55 06/04/19 10:55 Exam: General: Fully alert and oriented. Skin:Normal color, no rash, no lesions. Echymosis noted to left upper extremity. HEENT:EOM, pupils equal, round and reactive. Cardiovascular: Right upper sternal murmur. No JVD. Pulse regular. Lungs:Normal breath sounds, no wheezes or crackles. Abdomen:Soft, non-tender, no rigidity. Extremities:No deformity, no edema or tenderness, no joint swelling or clubbing. Left ankle wrapped. Neurological:Normal cognition and motor skills. Pulses:Carotid and radial pulses normal +2. Rest of the physical exam is non contributory. - Assessment and Plan (1) Fall Current Visit: Yes Status: Acute (2) Scaphoid fracture Current Visit: Yes Status: Ruled-out (3) Urinary tract infection Current Visit: Yes Status: Acute (4) Calcium increased serum Current Visit: Yes Status: Acute (5) Decreased GFR Current Visit: Yes Status: Acute (6) Diabetes mellitus Current Visit: Yes Status: Chronic (7) Hypertension Current Visit: Yes Status: Chronic (8) Thyroid disease Current Visit: Yes Status: Chronic - Summary of Assessment and Plan Summary of Assessment and Plan: 84-year-old female with history of type II DM, hypothyroidism, multiple falls who came into the hospital due to full. Left wrist trauma: Was read as fracture on X ray, orthopedic evaluated the patient. Doesn't look fracture and no splint is recommended Recent left ankle fracture: Discharged from rehab on Tuesday, not comfortable walking with he boot so she fell yesterday. Consult PT/OT. Spoke to her granddaughter who mentioned the patient is not safe to go back home giving her recent fractures and instability. UTI: HDS, afebrile. UCx is -. Patient was symptomatic. Continue Rocephine day 3/5. HTN: continue home medications. Moderate aortic stenosis; continued to monitor. She denied lightheadedness, chest pain or syncope. No history of heart failure in the past. DVT ppx: heparin sc - Time Spent with Patient Total time spent is greater than 50% in coordination of care (as documented) at patient's floor/unit and/or counseling patient: Plan of Care Discussed with: patient Internal Medicine: Result - Labs CBC & Chem 7: 06/04/19 06:54 06/04/19 06:54 Labs: Short CBC 06/04/19 Range/Units 06:54 WBC 7.4 (4.3-11.1) K/mcL Hgb 11.3 L (11.5-15.4) g/dL Hct 35.8 (35.3-44.9) % Plt Count 277 (140-400) K/mcL BMP 06/04/19 06:54 Sodium 134 L Potassium 3.6 Chloride 100 Carbon Dioxide 30 H BUN 17 Creatinine 0.93 Glucose 117 H Calcium 10.6 H - ABG Interpretation ABG results: PT/INR, D-dimer PT 12.1 Seconds (9.4-12.1) 06/02/19 17:35 - Impressions Impressions Wrist X-Ray 06/02/19 17:38 IMPRESSION: Subtle lucency seen in the distal pole of the scaphoid seen only on the oblique view suspicious for nondisplaced fracture and can be correlated with focal area of pain. D/ / 06/02/2019 17:41:17 Shantal Guillen MD / ervin Interpreting Provider: Shantal Guillen MD Head CT 06/02/19 18:26 IMPRESSION: Stable exam. No acute intracranial abnormality. D/ / 06/02/2019 18:36:04 Shantal Guillen MD / ervin Interpreting Provider: Shantal Guillen MD Consult Discharge Plan - Plan Referrals: Canelo Sorto DO [Primary Care Provider] - (1) Fall Qualifiers: Encounter type: initial encounter Qualified Code(s): W19.XXXA - Unspecified fall, initial encounter (2) Scaphoid fracture Qualifiers: Encounter type: initial encounter Scaphoid bone location: distal pole Fracture type: closed Fracture alignment: nondisplaced Laterality: left Qualified Code(s): S62.015A - Nondisplaced fracture of distal pole of navicular [scaphoid] bone of left wrist, initial encounter for closed fracture (3) Urinary tract infection Qualifiers: Qualified Code(s): N39.0 - Urinary tract infection, site not specified (6) Diabetes mellitus Qualifiers: Diabetes mellitus type: type 2 Qualified Code(s): E11.9 - Type 2 diabetes mellitus without complications (7) Hypertension Qualifiers: Hypertension type: unspecified Qualified Code(s): I10 - Essential (primary) hypertension
--- NOTE | 2019-06-04 13:05 | Electrocardiograph Report ---
[place] [id number] Test Date: 2019-06-02 Pat Name: Dileep Doherty Department: EXAM4 Room: [facility] Gender: Certified [employer] Facility Operator: : [id number] Requested By: Jerry Navarrete Order Number: [id number] Reading MD: Caleb Levy Measurements Intervals [place] Rate: 82 P: 21 MI: 223 QRS: 3 QRSD: 89 T: 49 QT: 389 QTc: 455 Interpretive Statements Sinus arrhythmia Prolonged MI interval Electronically Signed On 06-04-2019 12:05:29 EDT by Caleb Levy
[2019-06-05] MEDS: *HR* Heparin 5,000 UNIT/ML VIAL SQ SCH ×2 (05:16→17:55)
[2019-06-05] MEDS: Insulin LISPRO 300 UNITS/3 ML VIAL SQ SCH ×3 (07:36→17:54)
[2019-06-05] MEDS: hydrALAZINE 25 MG TABLET PO SCH ×3 (07:37→22:18)
[2019-06-05] MEDS: hydroCHLOROthiazide 25 MG TABLET PO SCH (07:37)
[2019-06-05] MEDS: Lisinopril 20 MG TABLET PO SCH (07:39)
[2019-06-05] MEDS: FLUoxetine 20 MG CAPSULE PO SCH (10:02)
[2019-06-05] MEDS: cefTRIAXone 1,000 MG in Water for inj. (sterile) 10 ML IVP SCH (10:02)
[2019-06-05] MEDS: Cyanocobalamin (B-12) 1,000 MCG TABLET PO SCH (10:02)
--- NOTE | 2019-06-05 11:15 | Orthopedics Progress Note ---
Date of Encounter: 06/05/19 Time of Encounter: 09:15 - Assessment and Plan (1) Closed left ankle fracture Current Visit: Yes Status: Acute Qualifiers: Encounter type: subsequent encounter Fracture healing: with routine healing Qualified Code(s): S82.892D - Other fracture of left lower leg, subsequent encounter for closed fracture with routine healing Subjective Principal diagnosis: left tib fracture Interval history: Patient has been following with Dr. Howell with [facility] for left trimalleolar ankle fx after twisting left ankle from falling in bathroom on 04/03/2019. Patient has been in and out of rehab since being followed for this fracture. Patient was brought into hospital after another fall per report. Patient was scheduled to see Dr. Howell on 06/04, however, she is admitted and therefore we will follow up with her here in hospital. Patient is a poor historian and therefore, the above is obtained from chart record. No family at bedside. Repeat xrays reveals stable, healing fractures. Ongoing fracture line visible at the medial malleolus. Patient seen at bedside. Patient ambulating with therapy with walker. KOJO applie d to the left ankle. This is quite snug - taken down revealing swelling above the wrap. Skin is c/d/i with no noted disruptions. Discoloration of the ankle appears as vascular relation though no sores or skin disruption is noted. Toe motion intact. Sensation intact. DP pulses intact. Patient has mild tenderness to the medial ankle, but is otherwise nontender to palpation. No knee or calf tenderness, erythema, or warmth. KOJO reapplied with wider disribution to aid in swelling control and reduce likelihood of skin disruption. CAM boot reapplied. Patient should continue in CAM boot with ambulation to allow for continued healing of the still visible medial malleolus fracture. She may remove when sleeping or lying in bed, but should be securely affixed with ambulation and weightbearing of any kind. KOJO should be removed and reapplied frequently (3-4 times per day) to avoid skin breakdown or too much compression. Remove KOJO wrap when boot is no applied. Keep follow up as scheduled with Dr. Howell with repeat xrays at that time. Please reach out with any other concerns regarding patient's left ankle. Thank you. Objective Vital signs: Vital Signs Temp Pulse Resp BP Pulse Ox 06/05/19 07:18 98.2 F 90 18 106/56 96 06/05/19 02:25 98.2 F 86 18 101/60 93 06/04/19 23:55 99.5 F 84 16 120/66 96 06/04/19 19:05 98.0 F 90 18 104/61 95 06/04/19 14:41 98.3 F 82 16 107/63 97 Intake and Output 06/04/19 06/05/19 06/05/19 23:59 07:59 15:59 Intake Total 50 / 280 0 / 240 240 / 240 Output Total 0 / 150 0 / 0 Balance 50 / 130 0 / 240 240 / 240 Intake: Oral 50 / 270 0 / 240 240 / 240 Output: Urine 0 / 150 0 / 0 Other: Meal Breakfast Percent of Meal Consumed 0% Stool Size Small Stool Consistency formed Stool Color Brown # Voids 1 1 # Bowel Movements 1 Weight 63.5 kg Blood Glucose* 130 114 Patient Weight 06/05/19 23:59 Weight 63.5 kg - Labs CBC & BMP: 06/04/19 06:54 06/04/19 06:54 Labs: Abnormal lab results Hgb 11.3 g/dL (11.5-15.4) L 06/04/19 06:54 MCV 80.6 fL (83.0-100.0) L 06/04/19 06:54 MCH 25.5 pg (28.0-33.3) L 06/04/19 06:54 MCHC 31.4 g/dL (31.6-35.5) L 06/03/19 06:02 RDW 15.2 % (11.5-14.5) H 06/04/19 06:54 Sodium 134 mEq/L (136-145) L 06/04/19 06:54 Potassium 3.4 mEq/L (3.5-5.1) L 06/03/19 06:02 Carbon Dioxide 30 mEq/L (23-29) H 06/04/19 06:54 Est GFR (Non-Af Amer) 57 (> 60) L 06/04/19 06:54 Glucose 117 mg/dL (70-105) H 06/04/19 06:54 POC Glucose 119 mg/dL (70-99) H 06/04/19 16:55 Calcium 10.6 mg/dL (8.6-10.3) H 06/04/19 06:54 Serum Total Protein 5.7 g/dL (6.4-8.9) L 06/03/19 06:02 Albumin 3.1 g/dL (3.5-5.7) L 06/03/19 06:02 Urine Urobilinogen 2.0 mg/dL (Normal) H 06/02/19 17:25 Ur Leukocyte Esterase Moderate (Negative) H 06/02/19 17:25 Urine Microscopic WBC 15-30 per hpf (0-3) H 06/02/19 17:25 Urine Yeast Few per hpf (None Seen) H 06/02/19 17:25 Ur Culture Indicated? YES (NO) A 06/02/19 17:25 Consult Discharge Plan - Plan Referrals: Canelo Sorto DO [Primary Care Provider] -
--- NOTE | 2019-06-05 12:32 | Internal Med Progress Note ---
Hospitalist Progress Note - Encounter Date of Encounter: 06/05/19 Time of Encounter: 09:40 - Subjective Interval History: No major events overnight. Patient was seen this a.m. He denied fever, chills or night sweats. He has no nausea, vomiting or abdominal pain. Patient denied chest pain, shortness of breath or palpitation. - Exam Vitals: Temp Pulse Resp BP Pulse Ox 97.9 F 81 16 144/73 93 06/05/19 11:08 06/05/19 11:08 06/05/19 11:08 06/05/19 11:08 06/05/19 11:08 Exam: General: Fully alert and oriented. Skin:Normal color, no rash, no lesions. Echymosis noted to left upper extremity. HEENT:EOM, pupils equal, round and reactive. Cardiovascular: Right upper sternal murmur. No JVD. Pulse regular. Lungs:Normal breath sounds, no wheezes or crackles. Abdomen:Soft, non-tender, no rigidity. Extremities:No deformity, no edema or tenderness, no joint swelling or clubbing. Left ankle wrapped. Neurological:Normal cognition and motor skills. Pulses:Carotid and radial pulses normal +2. Rest of the physical exam is non contributory. - Assessment and Plan (1) Fall Current Visit: Yes Status: Acute (2) Scaphoid fracture Current Visit: Yes Status: Ruled-out (3) Urinary tract infection Current Visit: Yes Status: Acute (4) Calcium increased serum Current Visit: Yes Status: Acute (5) Decreased GFR Current Visit: Yes Status: Acute (6) Diabetes mellitus Current Visit: Yes Status: Chronic (7) Hypertension Current Visit: Yes Status: Chronic (8) Thyroid disease Current Visit: Yes Status: Chronic - Summary of Assessment and Plan Summary of Assessment and Plan: 84-year-old female with history of type II DM, hypothyroidism, multiple falls who came into the hospital due to full. Left wrist trauma: Was read as fracture on X ray, orthopedic evaluated the patient. Doesn't look fracture and no splint is recommended Recent left ankle fracture: Discharged from rehab on Tuesday, not comfortable walking with he boot so she fell. Consult PT/OT WHO RECOMMENDED ECF. Spoke to her granddaughter who mentioned the patient is not safe to go back home giving her recent fractures and instability. Ortho recommeded to wear the boot with ambulation. Social service is on board. UTI: HDS, afebrile. UCx is -. Patient was symptomatic. Continue Rocephine day 4/5. HTN: continue home medications. Moderate aortic stenosis; continued to monitor. She denied lightheadedness, chest pain or syncope. No history of heart failure in the past. DVT ppx: heparin sc - Time Spent with Patient Total time spent is greater than 50% in coordination of care (as documented) at patient's floor/unit and/or counseling patient: Internal Medicine: Result - Labs CBC & Chem 7: 06/04/19 06:54 06/04/19 06:54 - ABG Interpretation ABG results: PT/INR, D-dimer PT 12.1 Seconds (9.4-12.1) 06/02/19 17:35 - Impressions Impressions Ankle X-Ray 06/04/19 19:45 IMPRESSION: Healing stable fracture medial malleolus D/ / Emir Ruiz MD / Emir Ruiz MD Interpreting Provider: Emir Ruiz MD Consult Discharge Plan - Plan Additional Instructions: CAM boot with ambulation to allow for continued healing of the still visible medial malleolus fracture. She may remove when sleeping or lying in bed, but should be securely affixed with ambulation and weightbearing of any kind. KOJO should be removed and reapplied frequently (3-4 times per day) to avoid skin breakdown or too much compression. Remove KOJO wrap when boot is not applied. Keep follow up as scheduled with Dr. Howell with repeat xrays at that time. Referrals: Canelo Sorto, [Primary Care Provider] - (1) Fall Qualifiers: Encounter type: initial encounter Qualified Code(s): W19.XXXA - Unspecified fall, initial encounter (2) Scaphoid fracture Qualifiers: Encounter type: initial encounter Scaphoid bone location: distal pole Fracture type: closed Fracture alignment: nondisplaced Laterality: left Qualified Code(s): S62.015A - Nondisplaced fracture of distal pole of navicular [scaphoid] bone of left wrist, initial encounter for closed fracture (3) Urinary tract infection Qualifiers: Qualified Code(s): N39.0 - Urinary tract infection, site not specified (6) Diabetes mellitus Qualifiers: Diabetes mellitus type: type 2 Qualified Code(s): E11.9 - Type 2 diabetes mellitus without complications (7) Hypertension Qualifiers: Hypertension type: unspecified Qualified Code(s): I10 - Essential (primary) hypertension
[2019-06-06] MEDS: *HR* Heparin 5,000 UNIT/ML VIAL SQ SCH ×2 (05:16→17:59)
--- NOTE | 2019-06-06 09:07 | Internal Med Progress Note ---
Hospitalist Progress Note - Encounter Date of Encounter: 06/06/19 Time of Encounter: 10:00 - Subjective Interval History: No acute events overnight - Exam Vitals: Temp Pulse Resp BP Pulse Ox 98.5 F 92 15 136/71 94 06/06/19 07:20 06/06/19 07:20 06/06/19 07:20 06/06/19 07:20 06/06/19 07:20 Exam: General: Fully alert and oriented. Skin:Normal color, no rash, no lesions. Echymosis noted to left upper extremity. HEENT:EOM, pupils equal, round and reactive. Cardiovascular: Right upper sternal murmur. No JVD. Pulse regular. Lungs:Normal breath sounds, no wheezes or crackles. Abdomen:Soft, non-tender, no rigidity. Extremities:No deformity, no edema or tenderness, no joint swelling or clubbing. Left ankle wrapped. Neurological:Normal cognition and motor skills. Pulses:Carotid and radial pulses normal +2. Rest of the physical exam is non contributory. - Assessment and Plan (1) Closed left ankle fracture Current Visit: Yes Status: Acute Assessment and Plan: Continue protective boot, no acute surgical intervention Awaiting insurance auth for rehab (2) Fall Current Visit: Yes Status: Acute Assessment and Plan: Presents for mechanical fall from sliding on hardwood floors and falling striking left arm. Denies striking head, losing consciousness, or anticoagulation use. Reported pain to left wrist since resolved. Plan for discharge to SNF and awaiting insurance auth (3) Scaphoid fracture Current Visit: Yes Status: Ruled-out Assessment and Plan: Plan as stated above. Currently denies any pain. (4) Urinary tract infection Current Visit: Yes Status: Acute Assessment and Plan: Continue ceftriaxone. (5) Calcium increased serum Current Visit: Yes Status: Acute Assessment and Plan: Last calcium was 10.6. Repeat BMP in am (6) Diabetes mellitus Current Visit: Yes Status: Chronic Assessment and Plan: Hold home diabetic medications. Sliding scale insulin ordered. Accu-Chek's ordered. (7) Hypertension Current Visit: Yes Status: Chronic Assessment and Plan: Continue home medications (8) Thyroid disease Current Visit: Yes Status: Chronic Assessment and Plan: Continue home medications - Time Spent with Patient Total time spent is greater than 50% in coordination of care (as documented) at patient's floor/unit and/or counseling patient: Internal Medicine: Result - Labs CBC & Chem 7: 06/04/19 06:54 06/04/19 06:54 - ABG Interpretation ABG results: PT/INR, D-dimer PT 12.1 Seconds (9.4-12.1) 06/02/19 17:35 Consult Discharge Plan - Plan Additional Instructions: CAM boot with ambulation to allow for continued healing of the still visible medial malleolus fracture. She may remove when sleeping or lying in bed, but should be securely affixed with ambulation and weightbearing of any kind. KOJO should be removed and reapplied frequently (3-4 times per day) to avoid skin breakdown or too much compression. Remove KOJO wrap when boot is not applied. Keep follow up as scheduled with Dr. Howell with repeat xrays at that time. Referrals: Canelo Sorto, [Primary Care Provider] - (1) Closed left ankle fracture Qualifiers: Encounter type: subsequent encounter Fracture healing: with routine healing Qualified Code(s): S82.892D - Other fracture of left lower leg, subsequent encounter for closed fracture with routine healing (2) Fall Qualifiers: Encounter type: initial encounter Qualified Code(s): W19.XXXA - Unspecified fall, initial encounter (3) Scaphoid fracture Qualifiers: Encounter type: initial encounter Scaphoid bone location: distal pole Fracture type: closed Fracture alignment: nondisplaced Laterality: left Qualified Code(s): S62.015A - Nondisplaced fracture of distal pole of navicular [scaphoid] bone of left wrist, initial encounter for closed fracture (4) Urinary tract infection Qualifiers: Qualified Code(s): N39.0 - Urinary tract infection, site not specified (6) Diabetes mellitus Qualifiers: Diabetes mellitus type: type 2 Qualified Code(s): E11.9 - Type 2 diabetes mellitus without complications (7) Hypertension Qualifiers: Hypertension type: unspecified Qualified Code(s): I10 - Essential (primary) hypertension
[2019-06-06] MEDS: Insulin LISPRO 300 UNITS/3 ML VIAL SQ SCH ×3 (09:26→18:00)
[2019-06-06] MEDS: cefTRIAXone 1,000 MG in Water for inj. (sterile) 10 ML IVP SCH (09:50)
[2019-06-06] MEDS: hydrALAZINE 25 MG TABLET PO SCH ×3 (09:51→22:45)
[2019-06-06] MEDS: hydroCHLOROthiazide 25 MG TABLET PO SCH (09:51)
[2019-06-06] MEDS: FLUoxetine 20 MG CAPSULE PO SCH (09:51)
[2019-06-06] MEDS: Cyanocobalamin (B-12) 1,000 MCG TABLET PO SCH (09:51)
[2019-06-06] MEDS: Lisinopril 20 MG TABLET PO SCH (09:52)
[2019-06-07] MEDS: *HR* Heparin 5,000 UNIT/ML VIAL SQ SCH (05:21)
[2019-06-07] MEDS: Cyanocobalamin (B-12) 1,000 MCG TABLET PO SCH (08:44)
[2019-06-07] MEDS: hydroCHLOROthiazide 25 MG TABLET PO SCH (08:44)
[2019-06-07] MEDS: hydrALAZINE 25 MG TABLET PO SCH (08:44)
[2019-06-07] MEDS: Insulin LISPRO 300 UNITS/3 ML VIAL SQ SCH ×2 (08:44→12:10)
[2019-06-07] MEDS: Lisinopril 20 MG TABLET PO SCH (08:44)
[2019-06-07] MEDS: FLUoxetine 20 MG CAPSULE PO SCH (08:44)
[2019-06-07] MEDS: cefTRIAXone 1,000 MG in Water for inj. (sterile) 10 ML IVP SCH (08:45)
[2019-06-07 11:01] VITALS: BP 113/48
[2019-06-07] MEDS ORDERED: Cefdinir 300 MG CAPSULE PO SCH (11:15)
--- NOTE | 2019-06-07 12:00 | Discharge Summary ---
Date of Encounter: 06/07/19 Time of Encounter: 10:00 - Discharge Diagnosis (1) Closed left ankle fracture Priority: Primary Status: Acute Assessment and Plan: 84 year old female with past medical history significant for hypertension, hyperlipidemia, valvular heart disease with murmur, diabetes, thyroid disease, asthma, and anxiety who presents following mechanical fall at home yesterday morning. Reports she slid on her hardwood floors at home and subsequently had a mechanical fall striking her left arm. Denies striking her head, losing consciousness, or anticoagulation use. Reported to ER she felt dizzy but denied this to me. Patient reports she did have some pain in her left wrist but does not at this time and also denies any other injury from her fall. Does report over the last 2 days she has had some dysuria and foul-smelling urine. Patient was just discharged 2 days ago from inpatient rehabilitation following a fall with left ankle fracture in March 2019. Patient was seen at [facility] yesterday morning where she refused any testing and was discharged home. While at [facility] family expressed interest in patient going into assisted living and further workup, however patient was oriented and refused any further evaluation. Patient returned to [facility] ER with her family last evening as her family felt she was unsafe at home alone due to her falling and also stating she does not seem to be at her baseline mentation since her fall in March. She was assessed with fall with wrist trauma r/o wrist fracture. She was seen by orthopedic surgery who determined no acute surgical intevention was indicated. For her existing ankle fracture she is to continue protective boot, no acute surgical intervention indicated. She was seen by PT who recommended placement in rehab. She was discharged in a stable condition. Outpatient follow up with ortho. 35 minutes was spent discharging this patient Qualifiers: Encounter type: subsequent encounter Fracture healing: with routine healing Qualified Code(s): S82.892D - Other fracture of left lower leg, subsequent encounter for closed fracture with routine healing (2) Fall Priority: Primary Status: Acute Qualifiers: Encounter type: initial encounter Qualified Code(s): W19.XXXA - Unspecified fall, initial encounter (3) Scaphoid fracture Priority: Primary Status: Ruled-out Qualifiers: Encounter type: initial encounter Scaphoid bone location: distal pole Fracture type: closed Fracture alignment: nondisplaced Laterality: left Qualified Code(s): S62.015A - Nondisplaced fracture of distal pole of navicular [scaphoid] bone of left wrist, initial encounter for closed fracture (4) Urinary tract infection Priority: Primary Status: Acute Qualifiers: Qualified Code(s): N39.0 - Urinary tract infection, site not specified; R31.9 - Hematuria, unspecified (5) Calcium increased serum Priority: Primary Status: Acute (6) Diabetes mellitus Priority: Primary Status: Chronic Qualifiers: Diabetes mellitus type: type 2 Qualified Code(s): E11.9 - Type 2 diabetes mellitus without complications (7) Hypertension Priority: Primary Status: Chronic Qualifiers: Hypertension type: unspecified Qualified Code(s): I10 - Essential (primary) hypertension (8) Thyroid disease Priority: Primary Status: Chronic Hospital course: Ms. Doherty is a 84 year old female - Time Spent with Patient Total time spent providing and/or coordinating discharge services: - Discharge Medications Prescriptions: Continued Cinacalcet [Sensipar] 30 mg PO HS Ondansetron [Zofran] 8 mg PO Q8H PRN PRN Reason: Nausea Metoprolol [Lopressor] 25 mg PO BID Potassium Chloride [Klor-Con 10] 10 meq PO TID Meclizine HCl [Verticalm] 25 mg PO BID PRN PRN Reason: Vertigo Glimepiride [Amaryl] 0.5 mg PO DAILY Lisinopril [Zestril] 40 mg PO DAILY #30 tablet Meloxicam [Mobic] 7.5 mg PO DAILY Cyanocobalamin (B-12) [Vitamin B12] 1,000 mcg PO DAILY #30 tablet Pravastatin Sodium [Pravachol] 20 mg PO HS Albuterol Sulfate [Proair Hfa] 2 puff IH Q4H PRN PRN Reason: Shortness Of Breath Cholecalciferol (D-3) [Vitamin D] 2,000 unit PO DAILY FLUoxetine HCl [Prozac] 20 mg PO DAILY Fluticasone Propionate Nasal [Flonase] 2 spr NS DAILY PRN PRN Reason: Allergy Symptoms hydroCHLOROthiazide [Hydrochlorothiazide] 12.5 mg PO DAILY Ipratropium/Albuterol Neb [Duoneb] 3 ml IH Q6HR Magnesium Oxide [Magnesium] 400 mg PO BID Cyclobenzaprine [Flexeril] 5 mg PO HS Home Medications: Cinacalcet [Sensipar] 30 mg PO HS 02/17/16 [History] Cyclobenzaprine [Flexeril] 5 mg PO HS 03/30/17 [History] Meclizine HCl [Verticalm] 25 mg PO BID PRN 04/01/17 [History] Metoprolol [Lopressor] 25 mg PO BID 04/01/17 [History] Ondansetron [Zofran] 8 mg PO Q8H PRN 04/01/17 [History] Potassium Chloride [Klor-Con 10] 10 meq PO TID 04/01/17 [History] Glimepiride [Amaryl] 0.5 mg PO DAILY 05/17/18 [History] Lisinopril [Zestril] 40 mg PO DAILY #30 tablet 05/20/18 [Rx] Meloxicam [Mobic] 7.5 mg PO DAILY 05/21/18 [History] Cyanocobalamin (B-12) [Vitamin B12] 1,000 mcg PO DAILY #30 tablet 05/22/18 [Rx] Pravastatin Sodium [Pravachol] 20 mg PO HS 06/02/19 [History] Albuterol Sulfate [Proair Hfa] 2 puff IH Q4H PRN 06/03/19 [History] Cholecalciferol (D-3) [Vitamin D] 2,000 unit PO DAILY 06/03/19 [History] FLUoxetine HCl [Prozac] 20 mg PO DAILY 06/03/19 [History] Fluticasone Propionate Nasal [Flonase] 2 spr NS DAILY PRN 06/03/19 [History] Ipratropium/Albuterol Neb [Duoneb] 3 ml IH Q6HR 06/03/19 [History] Magnesium Oxide [Magnesium] 400 mg PO BID 06/03/19 [History] hydroCHLOROthiazide [Hydrochlorothiazide] 12.5 mg PO DAILY 06/03/19 [History] Allergies/Adverse Reactions: Allergy/AdvReac Type Severity Reaction Status Date / Time aspirin Allergy Hives Verified 11/18/18 16:24 cephalexin [From Keflex] Allergy Hives Verified 11/18/18 16:24 ibuprofen [From Motrin] Allergy Hives Verified 11/18/18 16:24 propoxyphene Allergy Swelling Verified 11/18/18 16:24 [From Darvocet-N] of Lip/Tongue/Throat lorazepam [From Ativan] AdvReac Irritable Verified 11/18/18 16:24 Date of admission: 06/06/19 14:49 Primary care physician: Canelo Sorto DO Consults: 06/02/19 18:51 Consult to Senior Control Systems Engineer [CONS] Stat Reason for SW Consult: Evaluation of appropriateness or not for home discharge 06/02/19 19:30 Consult to Orthopedic Surgery [CONS] Routine Consulting Provider: Orthopedic and Sports Medicine Reason for Consult: Nondisplaced fracture of her left scaphoid Time Notified: 19:30 Call Completed: No 06/03/19 05:40 Consult to Physical Therapy [CONS] Routine Comment: Evaluate, develop and implement POC Reason for Consult: Recently released from rehab 2 days ago following fall with left ankle fracture. Fell again at home yesterday. Please evaluate and treat. Does patient have active BEDREST order?: No Is patient medically & hemodynamically stable?: Yes 06/03/19 13:07 Consult to Occupational Therapy [CONS] Routine Comment: Evaluate, develop and implement POC Reason for Consult: evaluate the need for skilled placement Does patient have active BEDREST order?: No Is patient medically & hemodynamically stable?: Yes Consult to Physical Therapy [CONS] Routine Comment: Evaluate, develop and implement POC Reason for Consult: evaluate the need for skilled placement Does patient have active BEDREST order?: No Is patient medically & hemodynamically stable?: Yes 06/04/19 11:35 Consult to Orthopedic Surgery [CONS] Routine Consulting Provider: [facility] Reason for Consult: Left Ankle Fracture Call Completed: Yes - Constitutional Vitals: Temp Pulse Resp BP Pulse Ox 97.5 F L 85 16 113/48 95 06/07/19 11:00 06/07/19 11:00 06/07/19 11:00 06/07/19 11:00 06/07/19 11:00 Exam: General: Fully alert and oriented. Skin:Normal color, no rash, no lesions. Echymosis noted to left upper extremity. HEENT:EOM, pupils equal, round and reactive. Cardiovascular: Right upper sternal murmur. No JVD. Pulse regular. Lungs:Normal breath sounds, no wheezes or crackles. Abdomen:Soft, non-tender, no rigidity. Extremities:No deformity, no edema or tenderness, no joint swelling or clubbing. Left ankle wrapped. Neurological:Normal cognition and motor skills. Pulses:Carotid and radial pulses normal +2. Rest of the physical exam is non contributory. - Patient Status Disposition: Transfer Inpatient Rehab Fac Condition: Good - Discharge Instructions Follow Up With: Imtiaz Howell MD [Partnered Physician] - 06/18/19 3:40 pm Canelo Sorto DO [Primary Care Provider] - Additional Instructions: CAM boot with ambulation to allow for continued healing of the still visible medial malleolus fracture. She may remove when sleeping or lying in bed, but should be securely affixed with ambulation and weightbearing of any kind. KOJO should be removed and reapplied frequently (3-4 times per day) to avoid skin breakdown or too much compression. Remove KOJO wrap when boot is not applied. Keep follow up as scheduled with Dr. Howell with repeat xrays at that time.
--- NOTE | 2019-06-07 12:02 | Physician Discharge Referral ---
- Diagnosis (1) Closed left ankle fracture Priority: Primary Status: Acute (2) Fall Priority: Primary Status: Acute (3) Scaphoid fracture Priority: Primary Status: Ruled-out (4) Urinary tract infection Priority: Primary Status: Acute (5) Calcium increased serum Priority: Primary Status: Acute (6) Diabetes mellitus Priority: Primary Status: Chronic (7) Hypertension Priority: Primary Status: Chronic (8) Thyroid disease Priority: Primary Status: Chronic - Transfer Medications Home Medications: Cinacalcet [Sensipar] 30 mg PO HS 02/17/16 [History] Cyclobenzaprine [Flexeril] 5 mg PO HS 03/30/17 [History] Meclizine HCl [Verticalm] 25 mg PO BID PRN 04/01/17 [History] Metoprolol [Lopressor] 25 mg PO BID 04/01/17 [History] Ondansetron [Zofran] 8 mg PO Q8H PRN 04/01/17 [History] Potassium Chloride [Klor-Con 10] 10 meq PO TID 04/01/17 [History] Glimepiride [Amaryl] 0.5 mg PO DAILY 05/17/18 [History] Lisinopril [Zestril] 40 mg PO DAILY #30 tablet 05/20/18 [Rx] Meloxicam [Mobic] 7.5 mg PO DAILY 05/21/18 [History] Cyanocobalamin (B-12) [Vitamin B12] 1,000 mcg PO DAILY #30 tablet 05/22/18 [Rx] Pravastatin Sodium [Pravachol] 20 mg PO HS 06/02/19 [History] Albuterol Sulfate [Proair Hfa] 2 puff IH Q4H PRN 06/03/19 [History] Cholecalciferol (D-3) [Vitamin D] 2,000 unit PO DAILY 06/03/19 [History] FLUoxetine HCl [Prozac] 20 mg PO DAILY 06/03/19 [History] Fluticasone Propionate Nasal [Flonase] 2 spr NS DAILY PRN 06/03/19 [History] Ipratropium/Albuterol Neb [Duoneb] 3 ml IH Q6HR 06/03/19 [History] Magnesium Oxide [Magnesium] 400 mg PO BID 06/03/19 [History] hydroCHLOROthiazide [Hydrochlorothiazide] 12.5 mg PO DAILY 06/03/19 [History] Allergies/Adverse Reactions: Allergy/AdvReac Type Severity Reaction Status Date / Time aspirin Allergy Hives Verified 11/18/18 16:24 cephalexin [From Keflex] Allergy Hives Verified 11/18/18 16:24 ibuprofen [From Motrin] Allergy Hives Verified 11/18/18 16:24 propoxyphene Allergy Swelling Verified 11/18/18 16:24 [From Darvocet-N] of Lip/Tongue/Throat lorazepam [From Ativan] AdvReac Irritable Verified 11/18/18 16:24 - Respiratory Orders Smoking Cessation: Smoking cessation has been advised. For more information, call the [place] Tobacco Quit Line at 1-178-XJHS-NOW. - Mobility Orders Ambulate - Rehabiliation Orders Rehab Orders: Evaluation for Physical Therapy, Evaluation for Occupational Therapy CERTIFICATION: I certify that the transfer of the above named patient to an Extended Care Facility is necessary for the continuing treatment of the diagnosis listed. The above information is true and accurate reflection of patient's current condition. Confidential - Redisclosure prohibited without a patient's written consent.
== END 2019-06-07 15:55 | DRG 563 ==
LOC: 3NENU 16:19 → EMEROOARM 16:19 → SUATTDRO 19:47 → 3NENU 20:51
PROVIDERS: ADMIT Internal Medicine; ATTEND Internal Medicine

== ENCOUNTER 2019-06-30 21:41 | Inpatient (IN) ==
[2019-06-30] MEDS ORDERED: 0.9 % Sodium Chloride 1,000 ML IVC ONE (21:54)
[2019-06-30 22:39] LABS: Basophils # 0.1 K/mcL (0.0-0.2); Basophils % 0.5 %; Eosinophils # 0.7 K/mcL (0.0-0.6); Eosinophils % 4.6 %; Hemoglobin 13.7 g/dL (11.5-15.4); Immature Granulocytes % 0.6 % (0-4); Lymphocytes # 2.5 K/mcL (0.6-4.6); Lymphocytes % 17.2 %; Mean Corpuscular HGB Conc 32.6 g/dL (31.6-35.5); Mean Corpuscular Hemoglobin 26.8 pg (28.0-33.3); Mean Platelet Volume 10.5 fL (9.4-12.4); Monocytes # 1.2 K/mcL (0.0-1.3); Monocytes % 8.2 %; Neutrophils # 9.9 K/mcL (1.6-8.9); Platelet Count 280 K/mcL (140-400); Red Blood Count 5.12 M/mcL (3.82-4.97); Red Cell Distribution Width 16.5 % (11.5-14.5); Segmented Neutrophils % 68.9 %; White Blood Count 14.3 K/mcL (4.3-11.1)
[2019-06-30 22:47] LABS: Prothrombin Time 11.7 Seconds (9.4-12.1)
[2019-06-30 22:50] LABS: Activated Partial Thrombo Time 30.6 Seconds (26.0-36.0)
[2019-06-30 23:07] LABS: Alanine Aminotransferase 9 Units/L (7-52); Albumin 3.7 g/dL (3.5-5.7); Albumin/Globulin Ratio 1.2 (1.1-2.2); Alkaline Phosphatase 58 Units/L (34-104); Aspartate Amino Transferase 24 Units/L (13-39); BUN/Creatinine Ratio 38 (6-26); Bilirubin,Direct 0.1 mg/dL (0.0-0.2); Bilirubin,Indirect 0.8 mg/dL (0.0-1.2); Bilirubin,Total 0.9 mg/dL (0.3-1.0); Blood Urea Nitrogen 31 mg/dL (8-23); Calcium 12.4 mg/dL (8.6-10.3); Carbon Dioxide 28 mEq/L (23-29); Chloride 98 mEq/L (98-107); Glucose 66 mg/dL (70-105); Magnesium 1.8 mg/dL (1.6-2.6); Osmolality,Calculated 283 (280-300); Phosphorous 2.3 mg/dL (2.7-4.5); Potassium 3.5 mEq/L (3.5-5.1); Sodium 134 mEq/L (136-145); Total Protein 6.7 g/dL (6.4-8.9); Troponin I 0.04 ng/mL (< 0.04); eGFR For African Americans > 60 (> 60); eGFR For Non-African Americans > 60 (> 60)
[2019-06-30 23:59] LABS: Bilirubin,Urine Negative (Negative); Blood,Urine Negative (Negative); Clarity,Urine Clear (Clear); Color,Urine Dark Yellow (Yellow); Glucose,Urine (UA) Normal (Normal); Ketones,Urine Trace mg/dL (Negative); Leukocyte Esterase,Urine Negative (Negative); Nitrite,Urine Negative (Negative); PH,Urine 5.5 pH Units (5.0-8.0); Protein,Urine Negative (Neg-Trace); Specific Gravity,Urine 1.018 (1.010-1.025); Urobilinogen,Urine Normal (Normal)
[2019-07-01] MEDS: D5% in 0.45% NACL 1,000 ML IVC SCH ×2 (02:50→14:53)
[2019-07-01] MEDS ORDERED: Naloxone 0.4 MG/ML INJ IVP PRN (03:29)
[2019-07-01] MEDS ORDERED: 0.9 % Sodium Chloride 1,000 ML IVC SCH (03:30)
[2019-07-01] MEDS ORDERED: Fluticasone Propionate Nasal 50 MCG/SPRAY BOTTLE NS PRN (03:31)
[2019-07-01] MEDS: Ipratropium/Albuterol Neb 3 ML IH SCH ×4 (04:20→22:33)
[2019-07-01 04:40] LABS: Amphetamine Screen,Urine Negative ng/mL (Cutoff=1000); Barbiturate Screen,Urine Negative ng/mL (Cutoff=200); Benzodiazepines Screen,Urine Negative ng/mL (Cutoff=200); Cannabinoid Screen,Urine Negative ng/mL (Cutoff = 50); Cocaine Screen,Urine Negative ng/mL (Cutoff= 300); Opiate Screen,Urine Negative ng/mL (Cutoff=300); Phencyclidine Screen,Urine Negative ng/mL (Cutoff=25)
[2019-07-01 04:55] LABS: INR 1.1; Prothrombin Time 12.2 Seconds (9.4-12.1)
[2019-07-01 04:58] LABS: Activated Partial Thrombo Time 28.7 Seconds (26.0-36.0)
[2019-07-01] MEDS: *HR* Heparin 5,000 UNIT/ML VIAL SQ SCH ×3 (05:02→21:01)
[2019-07-01 05:10] LABS: Alanine Aminotransferase 8 Units/L (7-52); Albumin 3.1 g/dL (3.5-5.7); Albumin/Globulin Ratio 1.2 (1.1-2.2); Alkaline Phosphatase 50 Units/L (34-104); Aspartate Amino Transferase 19 Units/L (13-39); BUN/Creatinine Ratio 38 (6-26); Bilirubin,Total 0.7 mg/dL (0.3-1.0); Blood Urea Nitrogen 26 mg/dL (8-23); Calcium 11.1 mg/dL (8.6-10.3); Carbon Dioxide 28 mEq/L (23-29); Chloride 102 mEq/L (98-107); Chol/HDL Ratio 3.6 (0-4.9); Cholesterol 129 mg/dL (< 200); Globulin 2.5 g/dL (2.4-3.5); Glucose 120 mg/dL (70-105); HDL Cholesterol 36 mg/dL (40-59); LDL Cholesterol,Calculated 74 mg/dL (0-99); Osmolality,Calculated 286 (280-300); Potassium 3.3 mEq/L (3.5-5.1); Sodium 135 mEq/L (136-145); Total Protein 5.6 g/dL (6.4-8.9); Triglycerides 96 mg/dL (< 150); Troponin I 0.05 ng/mL (< 0.04); eGFR For African Americans > 60 (> 60); eGFR For Non-African Americans > 60 (> 60)
[2019-07-01] MEDS ORDERED: Potassium Chloride Elixir 20 MEQ/15 ML UDC PO ONE (05:22)
[2019-07-01] MEDS: FLUoxetine 20 MG CAPSULE PO SCH (08:48)
[2019-07-01] MEDS: Magnesium Oxide 400 MG TABLET PO SCH ×2 (08:49→21:01)
[2019-07-01] MEDS: Cyanocobalamin (B-12) 1,000 MCG TABLET PO SCH (08:49)
[2019-07-01] MEDS: Cholecalciferol (D-3) 1,000 UNIT (25MCG) TABLET PO SCH (08:49)
[2019-07-01 10:43] LABS: Basophils # 0.1 K/mcL (0.0-0.2); Basophils % 0.5 %; Eosinophils # 0.8 K/mcL (0.0-0.6); Eosinophils % 6.1 %; Hematocrit 39.6 % (35.3-44.9); Hemoglobin 13.4 g/dL (11.5-15.4); Immature Granulocytes % 1.1 % (0-4); Lymphocytes # 2.2 K/mcL (0.6-4.6); Mean Corpuscular HGB Conc 33.8 g/dL (31.6-35.5); Mean Corpuscular Hemoglobin 27.3 pg (28.0-33.3); Mean Corpuscular Volume 80.7 fL (83.0-100.0); Mean Platelet Volume 11.1 fL (9.4-12.4); Monocytes % 7.5 %; Neutrophils # 8.9 K/mcL (1.6-8.9); Platelet Count 236 K/mcL (140-400); Red Blood Count 4.91 M/mcL (3.82-4.97); Red Cell Distribution Width 16.4 % (11.5-14.5); Segmented Neutrophils % 67.8 %; White Blood Count 13.1 K/mcL (4.3-11.1)
[2019-07-01] MEDS: Haloperidol Lactate 5 MG/ML VIAL IM PRN (16:52)
[2019-07-02] MEDS: Haloperidol Lactate 5 MG/ML VIAL IM PRN (00:08)
[2019-07-02] MEDS: D5% in 0.45% NACL 1,000 ML IVC SCH ×3 (00:26→09:08)
[2019-07-02] MEDS ORDERED: Melatonin 3 MG TABLET PO ONE (03:41)
[2019-07-02] MEDS: Ipratropium/Albuterol Neb 3 ML IH SCH ×4 (04:08→22:15)
[2019-07-02] MEDS: *HR* Heparin 5,000 UNIT/ML VIAL SQ SCH ×3 (05:40→22:31)
[2019-07-02 08:38] LABS: Estimated Average Glucose 120 mg/dl
[2019-07-02 08:44] LABS: Basophils # 0.1 K/mcL (0.0-0.2); Basophils % 0.5 %; Eosinophils # 0.3 K/mcL (0.0-0.6); Eosinophils % 2.4 %; Hematocrit 38.5 % (35.3-44.9); Hemoglobin 13.1 g/dL (11.5-15.4); Immature Granulocytes % 0.4 % (0-4); Lymphocytes # 1.1 K/mcL (0.6-4.6); Lymphocytes % 9.1 %; Mean Corpuscular Hemoglobin 27.1 pg (28.0-33.3); Mean Corpuscular Volume 79.5 fL (83.0-100.0); Mean Platelet Volume 10.8 fL (9.4-12.4); Monocytes % 8.4 %; Neutrophils # 9.3 K/mcL (1.6-8.9); Platelet Count 261 K/mcL (140-400); Red Blood Count 4.84 M/mcL (3.82-4.97); Red Cell Distribution Width 16.2 % (11.5-14.5); Segmented Neutrophils % 79.2 %; White Blood Count 11.8 K/mcL (4.3-11.1)
[2019-07-02 08:54] LABS: BUN/Creatinine Ratio 20 (6-26); Blood Urea Nitrogen 11 mg/dL (8-23); Calcium 10.6 mg/dL (8.6-10.3); Carbon Dioxide 25 mEq/L (23-29); Chloride 98 mEq/L (98-107); Glucose 223 mg/dL (70-105); Osmolality,Calculated 278 (280-300); Potassium 2.9 mEq/L (3.5-5.1); Sodium 131 mEq/L (136-145); eGFR For African Americans > 60 (> 60); eGFR For Non-African Americans > 60 (> 60)
[2019-07-02] MEDS: Cholecalciferol (D-3) 1,000 UNIT (25MCG) TABLET PO SCH (09:09)
[2019-07-02] MEDS: FLUoxetine 20 MG CAPSULE PO SCH (09:09)
[2019-07-02] MEDS: Magnesium Oxide 400 MG TABLET PO SCH ×2 (09:09→22:31)
[2019-07-02] MEDS: Cyanocobalamin (B-12) 1,000 MCG TABLET PO SCH (09:09)
[2019-07-02] MEDS ORDERED: Potassium Chloride Elixir 20 MEQ/15 ML UDC PO ONE (09:41)
[2019-07-02] MEDS: Haloperidol Lactate 5 MG/ML VIAL IVP PRN (10:11)
[2019-07-02] MEDS ORDERED: Perflutren Lipid Microsphere 1.3 ML in 0.9 % Sodium Chloride 8.7 ML IVP ONE (10:35)
[2019-07-02] MEDS ORDERED: Perflutren Lipid Microsphere 2 ML VIAL ONE (10:42)
[2019-07-02] MEDS: Lisinopril 20 MG TABLET PO SCH (12:37)
[2019-07-02 15:47] LABS: VBG Ionized Calcium 1.38 mmol/L (1.15-1.35)
[2019-07-02] MEDS ORDERED: 0.9 % Sodium Chloride 1,000 ML IVC SCH (17:45)
[2019-07-03 01:58] LABS: Basophils # 0.1 K/mcL (0.0-0.2); Basophils % 0.4 %; Eosinophils # 0.4 K/mcL (0.0-0.6); Eosinophils % 2.9 %; Hematocrit 36.6 % (35.3-44.9); Hemoglobin 12.2 g/dL (11.5-15.4); Immature Granulocytes % 0.5 % (0-4); Lymphocytes # 2.1 K/mcL (0.6-4.6); Lymphocytes % 15.8 %; Mean Corpuscular HGB Conc 33.3 g/dL (31.6-35.5); Mean Corpuscular Hemoglobin 27.2 pg (28.0-33.3); Mean Corpuscular Volume 81.7 fL (83.0-100.0); Mean Platelet Volume 11.6 fL (9.4-12.4); Monocytes # 1.3 K/mcL (0.0-1.3); Monocytes % 9.3 %; Neutrophils # 9.5 K/mcL (1.6-8.9); Platelet Count 259 K/mcL (140-400); Red Blood Count 4.48 M/mcL (3.82-4.97); Red Cell Distribution Width 16.2 % (11.5-14.5); Segmented Neutrophils % 71.1 %; White Blood Count 13.4 K/mcL (4.3-11.1)
[2019-07-03 02:16] LABS: BUN/Creatinine Ratio 14 (6-26); Blood Urea Nitrogen 8 mg/dL (8-23); Calcium 10.5 mg/dL (8.6-10.3); Carbon Dioxide 24 mEq/L (23-29); Chloride 103 mEq/L (98-107); Glucose 119 mg/dL (70-105); Osmolality,Calculated 277 (280-300); Potassium 3.4 mEq/L (3.5-5.1); Sodium 134 mEq/L (136-145); eGFR For African Americans > 60 (> 60); eGFR For Non-African Americans > 60 (> 60)
[2019-07-03] MEDS: Ipratropium/Albuterol Neb 3 ML IH SCH ×4 (04:05→22:15)
[2019-07-03] MEDS: *HR* Heparin 5,000 UNIT/ML VIAL SQ SCH ×3 (05:32→20:56)
[2019-07-03] MEDS ORDERED: NON-FORMULARY MEDICATION 1 EACH EACH (Cholecalciferol (Vitamin D3) [Vitamin D3] 2,000 UNIT PO SCH (07:00)
[2019-07-03] MEDS ORDERED: NON-FORMULARY MEDICATION 1 EACH EACH (Lisinopril [Zestril] 40 MG) PO SCH (07:00)
[2019-07-03] MEDS: Cholecalciferol (D-3) 1,000 UNIT (25MCG) TABLET PO SCH (11:15)
[2019-07-03] MEDS: Cyanocobalamin (B-12) 1,000 MCG TABLET PO SCH (11:15)
[2019-07-03] MEDS: Magnesium Oxide 400 MG TABLET PO SCH ×2 (11:15→20:55)
[2019-07-03] MEDS: Lisinopril 20 MG TABLET PO SCH (11:15)
[2019-07-03] MEDS: D5% in 0.45% NACL 1,000 ML IVC SCH ×2 (11:15→16:49)
[2019-07-04 01:35] LABS: Bacteria,Urine None Seen per hpf (None-Few); Bilirubin,Urine Negative (Negative); Blood,Urine Trace (Negative); Clarity,Urine Clear (Clear); Color,Urine Yellow (Yellow); Glucose,Urine (UA) 100 mg/dL (Normal); Hyaline Casts,Urine None Seen per lpf (None-Few); Ketones,Urine Negative (Negative); Leukocyte Esterase,Urine Negative (Negative); Nitrite,Urine Negative (Negative); Protein,Urine Negative (Neg-Trace); RBC,Urine 0-3 per hpf (0-3); Specific Gravity,Urine 1.008 (1.010-1.025); Squamous Epithelial Cell,Urine Moderate per lpf (None-Few); Urobilinogen,Urine Normal (Normal); WBC,Urine 0-3 per hpf (0-3)
[2019-07-04] MEDS: Ipratropium/Albuterol Neb 3 ML IH SCH ×4 (04:31→22:18)
[2019-07-04] MEDS: Haloperidol Lactate 5 MG/ML VIAL IVP PRN (06:28)
[2019-07-04 10:46] LABS: Hematocrit 33.4 % (35.3-44.9); Hemoglobin 10.9 g/dL (11.5-15.4); Mean Corpuscular HGB Conc 32.6 g/dL (31.6-35.5); Mean Corpuscular Hemoglobin 27.3 pg (28.0-33.3); Mean Corpuscular Volume 83.7 fL (83.0-100.0); Mean Platelet Volume 11.3 fL (9.4-12.4); Platelet Count 250 K/mcL (140-400); Red Blood Count 3.99 M/mcL (3.82-4.97); Red Cell Distribution Width 16.8 % (11.5-14.5); White Blood Count 9.7 K/mcL (4.3-11.1)
[2019-07-04 11:05] LABS: BUN/Creatinine Ratio 11 (6-26); Blood Urea Nitrogen 8 mg/dL (8-23); Calcium 10.5 mg/dL (8.6-10.3); Carbon Dioxide 26 mEq/L (23-29); Chloride 104 mEq/L (98-107); Glucose 94 mg/dL (70-105); Osmolality,Calculated 288 (280-300); Potassium 3.3 mEq/L (3.5-5.1); Sodium 140 mEq/L (136-145); eGFR For African Americans > 60 (> 60); eGFR For Non-African Americans > 60 (> 60)
[2019-07-04] MEDS: FLUoxetine HCl 10 MG CAPSULE PO SCH ×2 (11:10→18:38)
[2019-07-04 12:47] LABS: VBG Ionized Calcium 1.41 mmol/L (1.15-1.35)
[2019-07-04] MEDS ORDERED: 0.9 % Sodium Chloride 1,000 ML IVC SCH (15:15)
[2019-07-04 15:20] LABS: Amylase 18 Units/L (29-103); Lipase 15 Units/L (11-82)
[2019-07-04 15:55] LABS: C-Reactive Protein 50 mg/L (Less than 10)
[2019-07-04] MEDS: *HR* Heparin 5,000 UNIT/ML VIAL SQ SCH ×2 (16:04→16:05)
[2019-07-04] MEDS: Cholecalciferol (D-3) 1,000 UNIT (25MCG) TABLET PO SCH (18:38)
[2019-07-04] MEDS: Magnesium Oxide 400 MG TABLET PO SCH (18:38)
[2019-07-04] MEDS: Cyanocobalamin (B-12) 1,000 MCG TABLET PO SCH (18:38)
[2019-07-04] MEDS: Lisinopril 20 MG TABLET PO SCH (18:38)
[2019-07-05] MEDS: *HR* Heparin 5,000 UNIT/ML VIAL SQ SCH ×4 (00:07→20:30)
[2019-07-05] MEDS: Magnesium Oxide 400 MG TABLET PO SCH ×3 (00:08→20:30)
[2019-07-05] MEDS: Ipratropium/Albuterol Neb 3 ML IH SCH ×4 (03:47→22:03)
[2019-07-05 09:40] LABS: Hematocrit 37.6 % (35.3-44.9); Mean Corpuscular HGB Conc 33.5 g/dL (31.6-35.5); Mean Corpuscular Hemoglobin 27.2 pg (28.0-33.3); Mean Corpuscular Volume 81.2 fL (83.0-100.0); Mean Platelet Volume 10.8 fL (9.4-12.4); Platelet Count 274 K/mcL (140-400); Red Blood Count 4.63 M/mcL (3.82-4.97); Red Cell Distribution Width 17.1 % (11.5-14.5)
[2019-07-05 09:43] LABS: Hemoglobin 12.6 g/dL (11.5-15.4); White Blood Count 14.7 K/mcL (4.3-11.1)
[2019-07-05] MEDS: FLUoxetine HCl 10 MG CAPSULE PO SCH (11:05)
[2019-07-05] MEDS: Cyanocobalamin (B-12) 1,000 MCG TABLET PO SCH (11:05)
[2019-07-05] MEDS: Lisinopril 20 MG TABLET PO SCH (11:06)
[2019-07-05] MEDS: Cholecalciferol (D-3) 1,000 UNIT (25MCG) TABLET PO SCH (11:06)
[2019-07-05 11:16] LABS: BUN/Creatinine Ratio 14 (6-26); Blood Urea Nitrogen 8 mg/dL (8-23); Calcium 9.5 mg/dL (8.6-10.3); Carbon Dioxide 23 mEq/L (23-29); Chloride 105 mEq/L (98-107); Glucose 132 mg/dL (70-105); Osmolality,Calculated 284 (280-300); Potassium 3.4 mEq/L (3.5-5.1); Sodium 137 mEq/L (136-145); eGFR For African Americans > 60 (> 60); eGFR For Non-African Americans > 60 (> 60)
[2019-07-06] MEDS: Ipratropium/Albuterol Neb 3 ML IH SCH ×3 (03:35→14:58)
[2019-07-06] MEDS: *HR* Heparin 5,000 UNIT/ML VIAL SQ SCH ×2 (05:08→13:45)
[2019-07-06] MEDS: FLUoxetine HCl 10 MG CAPSULE PO SCH (07:56)
[2019-07-06] MEDS: Cholecalciferol (D-3) 1,000 UNIT (25MCG) TABLET PO SCH (07:56)
[2019-07-06] MEDS: Magnesium Oxide 400 MG TABLET PO SCH (07:56)
[2019-07-06] MEDS: Cyanocobalamin (B-12) 1,000 MCG TABLET PO SCH (07:56)
[2019-07-06] MEDS: Lisinopril 20 MG TABLET PO SCH (07:56)
[2019-07-06 09:08] LABS: Hematocrit 38.2 % (35.3-44.9); Hemoglobin 12.8 g/dL (11.5-15.4); Mean Corpuscular HGB Conc 33.5 g/dL (31.6-35.5); Mean Corpuscular Hemoglobin 27.2 pg (28.0-33.3); Mean Corpuscular Volume 81.1 fL (83.0-100.0); Mean Platelet Volume 10.5 fL (9.4-12.4); Platelet Count 292 K/mcL (140-400); Red Blood Count 4.71 M/mcL (3.82-4.97); White Blood Count 13.5 K/mcL (4.3-11.1)
[2019-07-06 09:21] LABS: BUN/Creatinine Ratio 16 (6-26); Blood Urea Nitrogen 9 mg/dL (8-23); Calcium 10.1 mg/dL (8.6-10.3); Carbon Dioxide 25 mEq/L (23-29); Chloride 101 mEq/L (98-107); Glucose 179 mg/dL (70-105); Osmolality,Calculated 283 (280-300); Potassium 3.2 mEq/L (3.5-5.1); Sodium 135 mEq/L (136-145); eGFR For African Americans > 60 (> 60); eGFR For Non-African Americans > 60 (> 60)
[2019-07-06 14:51] VITALS: BP 178/96
[2019-07-07 06:19] LABS: ANA IgG by ELISA NONE DETECTED (None Detected)
== END 2019-07-06 16:53 | DRG 643 ==
LOC: EMEROOARM 21:41 → 3ANU 21:41 → SUATTDRO 07-01 01:30 → 3ANU 07-01 01:53
PROVIDERS: ADMIT Family Medicine; ATTEND Family Medicine

== ENCOUNTER 2019-07-13 18:00 | Inpatient (IN) ==
[2019-07-14] MEDS ORDERED: Naloxone 0.4 MG/ML INJ IVP PRN (04:09)
[2019-07-14] MEDS ORDERED: Vancomycin (wt based) 1,000 MG VIAL IVPB SCH (05:00)
[2019-07-14 05:14] LABS: INR 1.3; Prothrombin Time 14.3 Seconds (9.4-12.1)
[2019-07-14 05:15] LABS: Basophils # 0.1 K/mcL (0.0-0.2); Basophils % 0.9 %; Eosinophils # 0.1 K/mcL (0.0-0.6); Hematocrit 42.5 % (35.3-44.9); Hemoglobin 13.3 g/dL (11.5-15.4); Immature Granulocytes % 0.7 % (0-4); Lymphocytes # 3.4 K/mcL (0.6-4.6); Mean Corpuscular HGB Conc 31.3 g/dL (31.6-35.5); Mean Corpuscular Volume 86.2 fL (83.0-100.0); Mean Platelet Volume 10.4 fL (9.4-12.4); Monocytes # 0.7 K/mcL (0.0-1.3); Monocytes % 5.4 %; Neutrophils # 9.1 K/mcL (1.6-8.9); Platelet Count 438 K/mcL (140-400); Red Blood Count 4.93 M/mcL (3.82-4.97); Red Cell Distribution Width 16.9 % (11.5-14.5); White Blood Count 13.6 K/mcL (4.3-11.1)
[2019-07-14 05:29] LABS: Chol/HDL Ratio 4.1 (0-4.9)
[2019-07-14 05:51] LABS: Alanine Aminotransferase 11 Units/L (7-52); Albumin 3.4 g/dL (3.5-5.7); Albumin/Globulin Ratio 1.1 (1.1-2.2); Alkaline Phosphatase 58 Units/L (34-104); Aspartate Amino Transferase 16 Units/L (13-39); BUN/Creatinine Ratio 23 (6-26); Bilirubin,Total 0.5 mg/dL (0.3-1.0); Blood Urea Nitrogen 13 mg/dL (8-23); Calcium 11.9 mg/dL (8.6-10.3); Carbon Dioxide 28 mEq/L (23-29); Chloride 105 mEq/L (98-107); Globulin 3.1 g/dL (2.4-3.5); Glucose 90 mg/dL (70-105); Magnesium 1.4 mg/dL (1.6-2.6); Osmolality,Calculated 294 (280-300); Phosphorous 2.1 mg/dL (2.7-4.5); Potassium 2.8 mEq/L (3.5-5.1); Sodium 142 mEq/L (136-145); Total Protein 6.5 g/dL (6.4-8.9); eGFR For African Americans > 60 (> 60); eGFR For Non-African Americans > 60 (> 60)
[2019-07-14 06:10] LABS: Estimated Average Glucose 105 mg/dl
[2019-07-14] MEDS: *HR* Heparin 5,000 UNIT/ML VIAL SQ SCH ×3 (06:25→20:27)
[2019-07-14 06:35] LABS: Vitamin B12 > 1500 pg/mL (250-1100)
[2019-07-14 07:30] LABS: ABG Base Excess 6 mEq/L (-2 to 3); ABG HCO3 31 mEq/L (21-27); ABG Oxygen Saturation 96 % (95-98); ABG PCO2 47 mmHg (35-45); ABG PH 7.43 pH Units (7.32-7.45); ABG PO2 78 mmHg (85-104); ABG TCO2 33 mEq/L (20-26)
[2019-07-14] MEDS ORDERED: cefTRIAXone 1,000 MG in Water for inj. (sterile) 10 ML IVP SCH (09:00)
[2019-07-14] MEDS ORDERED: levoFLOXacin 750 MG/150 ML 750 MG/150 ML BAG IVPB SCH (09:00)
[2019-07-14] MEDS ORDERED: Potassium Effervescent 25 MEQ TABLET.EFF PO ONE (09:07)
[2019-07-14] MEDS ORDERED: Potassium Chloride 40 MEQ, Lidocaine 1% 2 ML in 0.9 % Sodium Chloride 500 ML IVPB ONE (09:07)
[2019-07-14] MEDS: *HR* Metoprolol 5 MG/5 ML VIAL IVP SCH ×2 (14:58→19:03)
[2019-07-14] MEDS ORDERED: 0.9 % Sodium Chloride 1,000 ML IVC SCH (17:00)
[2019-07-14] MEDS ORDERED: Fluticasone Propionate Nasal 50 MCG/SPRAY BOTTLE NS PRN (17:28)
[2019-07-14] MEDS ORDERED: Ondansetron ODT 4 MG TAB.RAPDIS PO PRN (17:28)
[2019-07-14] MEDS ORDERED: Ipratropium/Albuterol Neb 3 ML IH PRN (17:28)
[2019-07-14] MEDS: Magnesium Oxide 400 MG TABLET PO SCH (20:27)
[2019-07-14] MEDS: Mirtazapine 15 MG TABLET PO SCH (20:35)
[2019-07-15] MEDS: *HR* Metoprolol 5 MG/5 ML VIAL IVP SCH ×5 (00:34→23:50)
[2019-07-15] MEDS: *HR* Heparin 5,000 UNIT/ML VIAL SQ SCH ×3 (05:10→21:04)
[2019-07-15] MEDS: FLUoxetine HCl 10 MG CAPSULE PO SCH (05:59)
[2019-07-15] MEDS: Pyridoxine (B-6) 50 MG TABLET PO SCH (06:00)
[2019-07-15] MEDS: amLODIPine 5 MG TABLET PO SCH (06:00)
[2019-07-15] MEDS: Lisinopril 20 MG TABLET PO SCH (06:01)
[2019-07-15 07:58] LABS: Basophils # 0.1 K/mcL (0.0-0.2); Basophils % 0.8 %; Eosinophils # 0.2 K/mcL (0.0-0.6); Eosinophils % 1.3 %; Hematocrit 40.5 % (35.3-44.9); Hemoglobin 12.6 g/dL (11.5-15.4); Immature Granulocytes % 0.8 % (0-4); Lymphocytes # 2.7 K/mcL (0.6-4.6); Lymphocytes % 22.6 %; Mean Corpuscular HGB Conc 31.1 g/dL (31.6-35.5); Mean Corpuscular Volume 86.9 fL (83.0-100.0); Mean Platelet Volume 10.6 fL (9.4-12.4); Monocytes # 0.8 K/mcL (0.0-1.3); Monocytes % 6.6 %; Neutrophils # 8.1 K/mcL (1.6-8.9); Platelet Count 351 K/mcL (140-400); Red Blood Count 4.66 M/mcL (3.82-4.97); Red Cell Distribution Width 16.8 % (11.5-14.5); Segmented Neutrophils % 67.9 %; White Blood Count 11.9 K/mcL (4.3-11.1)
[2019-07-15 08:05] LABS: BUN/Creatinine Ratio 23 (6-26); Blood Urea Nitrogen 12 mg/dL (8-23); Calcium 11.9 mg/dL (8.6-10.3); Carbon Dioxide 30 mEq/L (23-29); Chloride 106 mEq/L (98-107); Glucose 158 mg/dL (70-105); Osmolality,Calculated 301 (280-300); Potassium 2.8 mEq/L (3.5-5.1); Sodium 144 mEq/L (136-145); eGFR For African Americans > 60 (> 60); eGFR For Non-African Americans > 60 (> 60)
[2019-07-15] MEDS ORDERED: Potassium Chloride 40 MEQ, Lidocaine 1% 2 ML in 0.9 % Sodium Chloride 500 ML IVPB ONE (08:09)
[2019-07-15] MEDS: Magnesium Oxide 400 MG TABLET PO SCH ×2 (09:31→21:04)
[2019-07-15] MEDS: 0.9 % Sodium Chloride 1,000 ML IVC SCH (17:58)
[2019-07-15] MEDS: Mirtazapine 15 MG TABLET PO SCH (21:03)
[2019-07-16 05:16] LABS: Basophils # 0.1 K/mcL (0.0-0.2); Basophils % 0.7 %; Eosinophils # 0.3 K/mcL (0.0-0.6); Eosinophils % 2.4 %; Hematocrit 41.8 % (35.3-44.9); Hemoglobin 13.1 g/dL (11.5-15.4); Immature Granulocytes % 0.6 % (0-4); Lymphocytes # 3.1 K/mcL (0.6-4.6); Lymphocytes % 28.5 %; Mean Corpuscular HGB Conc 31.3 g/dL (31.6-35.5); Mean Corpuscular Hemoglobin 27.1 pg (28.0-33.3); Mean Corpuscular Volume 86.4 fL (83.0-100.0); Mean Platelet Volume 10.1 fL (9.4-12.4); Monocytes # 0.8 K/mcL (0.0-1.3); Monocytes % 7.6 %; Neutrophils # 6.5 K/mcL (1.6-8.9); Platelet Count 326 K/mcL (140-400); Red Blood Count 4.84 M/mcL (3.82-4.97); Red Cell Distribution Width 16.8 % (11.5-14.5); Segmented Neutrophils % 60.2 %; White Blood Count 10.8 K/mcL (4.3-11.1)
[2019-07-16 05:34] LABS: BUN/Creatinine Ratio 18 (6-26); Blood Urea Nitrogen 9 mg/dL (8-23); Calcium 11.5 mg/dL (8.6-10.3); Carbon Dioxide 28 mEq/L (23-29); Chloride 108 mEq/L (98-107); Glucose 104 mg/dL (70-105); Osmolality,Calculated 293 (280-300); Potassium 3.6 mEq/L (3.5-5.1); Sodium 142 mEq/L (136-145); eGFR For African Americans > 60 (> 60); eGFR For Non-African Americans > 60 (> 60)
[2019-07-16] MEDS: *HR* Heparin 5,000 UNIT/ML VIAL SQ SCH ×3 (06:12→20:09)
[2019-07-16] MEDS: *HR* Metoprolol 5 MG/5 ML VIAL IVP SCH ×2 (06:12→11:37)
[2019-07-16] MEDS: Pyridoxine (B-6) 50 MG TABLET PO SCH (06:14)
[2019-07-16] MEDS: amLODIPine 5 MG TABLET PO SCH (06:15)
[2019-07-16] MEDS: Lisinopril 20 MG TABLET PO SCH (06:15)
[2019-07-16] MEDS: FLUoxetine HCl 10 MG CAPSULE PO SCH (06:15)
[2019-07-16] MEDS: Sulfamethoxazole/Trimeth DS 1 EACH TABLET PO SCH ×2 (10:55→20:02)
[2019-07-16] MEDS: Magnesium Oxide 400 MG TABLET PO SCH ×2 (10:55→20:03)
[2019-07-16] MEDS: 0.9 % Sodium Chloride 1,000 ML IVC SCH (10:56)
[2019-07-16] MEDS ORDERED: Aminoglycoside Consult 1 EACH MC ONE (15:43)
[2019-07-16] MEDS: Mirtazapine 15 MG TABLET PO SCH (20:03)
[2019-07-17 05:11] LABS: Basophils # 0.1 K/mcL (0.0-0.2); Basophils % 0.5 %; Eosinophils % 0.2 %; Hematocrit 43.8 % (35.3-44.9); Hemoglobin 13.9 g/dL (11.5-15.4); Immature Granulocytes % 0.7 % (0-4); Lymphocytes # 1.9 K/mcL (0.6-4.6); Lymphocytes % 11.2 %; Mean Corpuscular HGB Conc 31.7 g/dL (31.6-35.5); Mean Corpuscular Hemoglobin 27.4 pg (28.0-33.3); Mean Corpuscular Volume 86.2 fL (83.0-100.0); Mean Platelet Volume 10.1 fL (9.4-12.4); Monocytes # 1.1 K/mcL (0.0-1.3); Monocytes % 6.6 %; Platelet Count 321 K/mcL (140-400); Red Blood Count 5.08 M/mcL (3.82-4.97); Red Cell Distribution Width 16.7 % (11.5-14.5); Segmented Neutrophils % 80.8 %
[2019-07-17 05:12] LABS: White Blood Count 17.3 K/mcL (4.3-11.1)
[2019-07-17 05:30] LABS: BUN/Creatinine Ratio 19 (6-26); Blood Urea Nitrogen 11 mg/dL (8-23); Carbon Dioxide 27 mEq/L (23-29); Chloride 106 mEq/L (98-107); Glucose 121 mg/dL (70-105); Osmolality,Calculated 295 (280-300); Potassium 3.7 mEq/L (3.5-5.1); Sodium 142 mEq/L (136-145); eGFR For African Americans > 60 (> 60); eGFR For Non-African Americans > 60 (> 60)
[2019-07-17] MEDS: *HR* Heparin 5,000 UNIT/ML VIAL SQ SCH ×3 (06:06→21:51)
[2019-07-17] MEDS: Lisinopril 20 MG TABLET PO SCH (06:07)
[2019-07-17] MEDS: FLUoxetine HCl 10 MG CAPSULE PO SCH ×2 (06:07→06:31)
[2019-07-17] MEDS: Pyridoxine (B-6) 50 MG TABLET PO SCH (06:08)
[2019-07-17] MEDS: amLODIPine 5 MG TABLET PO SCH (06:08)
[2019-07-17] MEDS: Sulfamethoxazole/Trimeth DS 1 EACH TABLET PO SCH ×2 (09:17→21:29)
[2019-07-17] MEDS: Magnesium Oxide 400 MG TABLET PO SCH ×2 (09:17→21:29)
[2019-07-17] MEDS ORDERED: Pamidronate 30 MG in 0.9 % Sodium Chloride 500 ML IVPB ONE (09:30)
[2019-07-17] MEDS: Mirtazapine 15 MG TABLET PO SCH (21:28)
[2019-07-18 05:39] LABS: Basophils # 0.1 K/mcL (0.0-0.2); Basophils % 0.8 %; Eosinophils # 0.1 K/mcL (0.0-0.6); Eosinophils % 0.5 %; Hematocrit 45.1 % (35.3-44.9); Hemoglobin 14.7 g/dL (11.5-15.4); Immature Granulocytes % 0.9 % (0-4); Lymphocytes # 2.5 K/mcL (0.6-4.6); Lymphocytes % 23.4 %; Mean Corpuscular HGB Conc 32.6 g/dL (31.6-35.5); Mean Corpuscular Hemoglobin 27.5 pg (28.0-33.3); Mean Corpuscular Volume 84.3 fL (83.0-100.0); Mean Platelet Volume 10.2 fL (9.4-12.4); Monocytes # 0.7 K/mcL (0.0-1.3); Monocytes % 6.3 %; Neutrophils # 7.2 K/mcL (1.6-8.9); Platelet Count 383 K/mcL (140-400); Red Blood Count 5.35 M/mcL (3.82-4.97); Red Cell Distribution Width 17.1 % (11.5-14.5); Segmented Neutrophils % 68.1 %; White Blood Count 10.6 K/mcL (4.3-11.1)
[2019-07-18 06:06] LABS: BUN/Creatinine Ratio 26 (6-26); Blood Urea Nitrogen 20 mg/dL (8-23); Calcium 13.1 mg/dL (8.6-10.3); Carbon Dioxide 31 mEq/L (23-29); Chloride 104 mEq/L (98-107); Glucose 139 mg/dL (70-105); Osmolality,Calculated 305 (280-300); Potassium 3.5 mEq/L (3.5-5.1); Sodium 145 mEq/L (136-145); eGFR For African Americans > 60 (> 60); eGFR For Non-African Americans > 60 (> 60)
[2019-07-18] MEDS: *HR* Heparin 5,000 UNIT/ML VIAL SQ SCH ×3 (06:28→22:57)
[2019-07-18] MEDS: FLUoxetine HCl 10 MG CAPSULE PO SCH (06:29)
[2019-07-18] MEDS: amLODIPine 5 MG TABLET PO SCH (06:29)
[2019-07-18] MEDS: Pyridoxine (B-6) 50 MG TABLET PO SCH (06:29)
[2019-07-18] MEDS: Lisinopril 20 MG TABLET PO SCH (06:30)
[2019-07-18] MEDS: Magnesium Oxide 400 MG TABLET PO SCH ×2 (09:01→22:57)
[2019-07-18] MEDS: Sulfamethoxazole/Trimeth DS 1 EACH TABLET PO SCH ×2 (09:01→22:56)
[2019-07-18] MEDS: *HR* Metoprolol 5 MG/5 ML VIAL IVP PRN (09:01)
[2019-07-18] MEDS: 0.9 % Sodium Chloride 1,000 ML IVC SCH (13:12)
[2019-07-18] MEDS: Potassium Chloride Elixir 20 MEQ/15 ML UDC PO SCH (16:44)
[2019-07-18] MEDS: Mirtazapine 15 MG TABLET PO SCH (22:56)
[2019-07-19] MEDS: 0.9 % Sodium Chloride 1,000 ML IVC SCH (02:37)
[2019-07-19] MEDS: *HR* Metoprolol 5 MG/5 ML VIAL IVP PRN (02:50)
[2019-07-19 04:23] LABS: Basophils # 0.1 K/mcL (0.0-0.2); Basophils % 0.7 %; Eosinophils # 0.1 K/mcL (0.0-0.6); Eosinophils % 0.8 %; Hematocrit 40.6 % (35.3-44.9); Immature Granulocytes % 0.8 % (0-4); Lymphocytes # 2.8 K/mcL (0.6-4.6); Lymphocytes % 27.7 %; Mean Corpuscular Hemoglobin 27.2 pg (28.0-33.3); Mean Corpuscular Volume 87.7 fL (83.0-100.0); Mean Platelet Volume 10.9 fL (9.4-12.4); Monocytes # 0.7 K/mcL (0.0-1.3); Monocytes % 7.3 %; Neutrophils # 6.4 K/mcL (1.6-8.9); Platelet Count 347 K/mcL (140-400); Red Blood Count 4.63 M/mcL (3.82-4.97); Red Cell Distribution Width 17.1 % (11.5-14.5); Segmented Neutrophils % 62.7 %; White Blood Count 10.2 K/mcL (4.3-11.1)
[2019-07-19 04:25] LABS: Hemoglobin 12.6 g/dL (11.5-15.4)
[2019-07-19 04:43] LABS: BUN/Creatinine Ratio 32 (6-26); Blood Urea Nitrogen 18 mg/dL (8-23); Calcium 11.3 mg/dL (8.6-10.3); Carbon Dioxide 28 mEq/L (23-29); Chloride 110 mEq/L (98-107); Glucose 99 mg/dL (70-105); Osmolality,Calculated 306 (280-300); Potassium 3.1 mEq/L (3.5-5.1); Sodium 147 mEq/L (136-145); eGFR For African Americans > 60 (> 60); eGFR For Non-African Americans > 60 (> 60)
[2019-07-19] MEDS ORDERED: D5% in Water 1,000 ML IVC PRN (05:35)
[2019-07-19] MEDS ORDERED: *HR* Dextrose 50 % in Water (Syg) 50 ML SYRINGE IVP PRN (05:35)
[2019-07-19] MEDS ORDERED: Dextrose Gel 15 GM/37.5 ML TUBE PO PRN ×2 (05:35)
[2019-07-19] MEDS: *HR* Heparin 5,000 UNIT/ML VIAL SQ SCH ×3 (06:44→20:08)
[2019-07-19] MEDS ORDERED: Potassium Chloride Elixir 20 MEQ/15 ML UDC PO ONE (07:27)
[2019-07-19] MEDS: Pyridoxine (B-6) 50 MG TABLET PO SCH (08:10)
[2019-07-19] MEDS: FLUoxetine HCl 10 MG CAPSULE PO SCH (08:10)
[2019-07-19] MEDS: Sulfamethoxazole/Trimeth DS 1 EACH TABLET PO SCH ×2 (08:10→20:08)
[2019-07-19] MEDS: Magnesium Oxide 400 MG TABLET PO SCH ×2 (08:10→20:08)
[2019-07-19] MEDS: Lisinopril 20 MG TABLET PO SCH (08:10)
[2019-07-19] MEDS: amLODIPine 5 MG TABLET PO SCH (08:10)
[2019-07-19] MEDS: Potassium Chloride Elixir 20 MEQ/15 ML UDC PO SCH ×3 (08:17→17:52)
[2019-07-19] MEDS ORDERED: Morphine Sulfate Oral CONC 10 MG/0.5 ML ORAL.SYG SL PRN (16:45)
[2019-07-19] MEDS: Mirtazapine 15 MG TABLET PO SCH (20:08)
[2019-07-20 04:54] LABS: Basophils # 0.1 K/mcL (0.0-0.2); Basophils % 0.9 %; Eosinophils # 0.1 K/mcL (0.0-0.6); Hemoglobin 14.3 g/dL (11.5-15.4); Lymphocytes # 3.1 K/mcL (0.6-4.6); Lymphocytes % 27.5 %; Mean Corpuscular HGB Conc 31.1 g/dL (31.6-35.5); Mean Corpuscular Volume 86.8 fL (83.0-100.0); Mean Platelet Volume 10.6 fL (9.4-12.4); Monocytes # 0.9 K/mcL (0.0-1.3); Monocytes % 7.8 %; Platelet Count 347 K/mcL (140-400); Red Cell Distribution Width 17.2 % (11.5-14.5); Segmented Neutrophils % 61.8 %; White Blood Count 11.4 K/mcL (4.3-11.1)
[2019-07-20 05:12] LABS: BUN/Creatinine Ratio 18 (6-26); Blood Urea Nitrogen 10 mg/dL (8-23); Carbon Dioxide 29 mEq/L (23-29); Chloride 107 mEq/L (98-107); Glucose 99 mg/dL (70-105); Osmolality,Calculated 303 (280-300); Potassium 3.1 mEq/L (3.5-5.1); Sodium 147 mEq/L (136-145); eGFR For African Americans > 60 (> 60); eGFR For Non-African Americans > 60 (> 60)
[2019-07-20] MEDS: *HR* Heparin 5,000 UNIT/ML VIAL SQ SCH (06:27)
[2019-07-20] MEDS: FLUoxetine HCl 10 MG CAPSULE PO SCH (09:19)
[2019-07-20] MEDS: Lisinopril 20 MG TABLET PO SCH (09:19)
[2019-07-20] MEDS: Magnesium Oxide 400 MG TABLET PO SCH (09:19)
[2019-07-20] MEDS: Sulfamethoxazole/Trimeth DS 1 EACH TABLET PO SCH (09:20)
[2019-07-20] MEDS: Pyridoxine (B-6) 50 MG TABLET PO SCH (09:20)
[2019-07-20] MEDS: amLODIPine 5 MG TABLET PO SCH (09:20)
[2019-07-20] MEDS: Potassium Chloride Elixir 20 MEQ/15 ML UDC PO SCH (09:24)
[2019-07-20 10:32] VITALS: BP 159/88
[2019-07-21] MEDS ORDERED: Sennosides 8.6 MG TABLET PO SCH (09:00)
== END 2019-07-20 15:44 | DRG 698 ==
LOC: 3ANU → SUATTDRO 20:53
PROVIDERS: ADMIT Internal Medicine; ATTEND Family Medicine